=== PATIENT | male | born 1950 | race Caucasian/White ===

== ENCOUNTER 2016-12-18 11:26 | Emergency (ER) | payer MEDICARE ==
[2016-12-18 11:45] VITALS: BP 165/91
--- NOTE | 2016-12-18 12:12 | UC ---
Bite Injury/Animal HPI - HPI Summary HPI Summary: Trying to break up dog fight - History of Current Complaint Chief Complaint: UCBiteInjury Stated Complaint: DOG BITE Time Seen by Provider: 12/18/16 11:51 - Allergies/Home Medications Allergies/Adverse Reactions: Allergies Allergy/AdvReac Type Severity Reaction Status Date / Time No Known Allergies Allergy Verified 03/28/15 13:34 Home Medications: Home Medications Amlodipine Besylate [Norvasc 2.5 mg tab] 2.5 mg PO DAILY 12/18/16 [History Confirmed 12/18/16] Aspirin [Davis Aspirin 325 MG] 325 mg PO 12/18/16 [History] Folic Acid 800 mcg PO 12/18/16 [History] Levothyroxine TAB* [Synthroid TAB*] 62.5 mcg PO 0800 12/18/16 [History Confirmed 12/18/16] Magnesium Oxide 800 mg PO 12/18/16 [History] Metoprolol Tartrate [Lopressor] 50 mg PO 12/18/16 [History] Omeprazole 40 mg PO 12/18/16 [History] PMH/Surg Hx/FS Hx/Imm Hx Endocrine History Of: Reports: Thyroid Disease Cardiovascular History Of: Reports: Hypertension Respiratory History Of: Reports: COPD Neurological History Of: Reports: Seizures Psychological History Of: Reports: Anxiety, Depression - Surgical History Surgical History: Yes Surgery Procedure, Year, and Place: bladder surgery - Family History Known Family History: Positive: Hypertension, Diabetes - mother, grandmother - Social History Occupation: Retired Lives: Alone Alcohol Use: Daily Alcohol Amount: 4-6 a day Substance Use Type: Prescribed Substance Use Comment - Amount & Last Used: 03/28/15 Smoking Status (MU): Heavy Every Day Tobacco Smoker Type: Cigarettes Cessation Counseling: Patient Advised to Stop - Immunization History Most Recent Influenza Vaccination: never Most Recent Tetanus Shot: unk Most Recent Pneumonia Vaccination: unk Review of Systems Constitutional: Negative Skin: Other - redness, swelling, PWs L hand Eyes: Negative ENT: Negative Respiratory: Negative Cardiovascular: Negative Gastrointestinal: Negative Genitourinary: Negative Motor: Negative Neurovascular: Negative Musculoskeletal: Negative Neurological: Negative Psychological: Negative All Other Systems Reviewed And Are Negative: Yes Physical Exam Triage Information Reviewed: Yes Appearance: Pain Distress - with L hand use, Other: - poor grooming, faint smell of alcohol Vital Signs: Initial Vital Signs Temp 98.4 F 12/18/16 11:39 Pulse 94 12/18/16 11:39 Resp 18 12/18/16 11:39 BP 165/91 12/18/16 11:39 Pulse Ox 99 12/18/16 11:39 Vital Signs Reviewed: Yes Eye Exam: Normal Eyes: Positive: Conjunctiva Clear ENT Exam: Normal ENT: Positive: Normal ENT inspection, Hearing grossly normal, Pharynx normal, TMs normal Neck exam: Normal Neck: Positive: Supple, Nontender Respiratory Exam: Normal Respiratory: Positive: Chest non-tender, Lungs clear, Normal breath sounds Cardiovascular Exam: Normal Cardiovascular: Positive: RRR Musculoskeletal: Positive: 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 No tendon abnormalities noted on limited L hand exam. Neurological: Positive: Alert Psychological Exam: Normal Skin Exam: Other - Marked swelling and redness to back of L hand with lymphangitic streaking up to elbow. Multiple scabbed lacerations and PWs to hand , 2nd, 3rd, and 5th fingers. No wounds to volar side of hand. Bite Injury Course/Dx - Differential Dx/Diagnosis Provider Diagnoses: L hand infection. L hand dog bites - Physician Notifications Discussed Patient Care With: Dr. Grant Time Discussed With Above Provider: 12:09 Instructed by Provider To: MD Will See In ED Discharge - Discharge Plan Condition: Stable Disposition: AGAINST MEDICAL ADVICE
== END 2016-12-18 12:18 | disposition left against medical advice (07) ==
LOC: UCEAST 11:26
DX: S61.452A Open bite of left hand, initial encounter (principal); W54.0XXA Bitten by dog, initial encounter; F17.210 Nicotine dependence, cigarettes, uncomplicated; E07.9 Disorder of thyroid, unspecified; I10 Essential (primary) hypertension; J44.9 Chronic obstructive pulmonary disease, unspecified; R56.9 Unspecified convulsions; F41.9 Anxiety disorder, unspecified; F32.9 Major depressive disorder, single episode, unspecified; Z79.82 Long term (current) use of aspirin
CPT/HCPCS: 99212; G0463

== ENCOUNTER 2017-08-15 06:45 | Day surgery (SDC) | payer MEDICARE ==
[~2017-08-15 06:45] MED LIST: Acetaminophen TAB* 325 MG PO PRN; Buffered Lidocaine 0.9% SYRIN* 5 ML/SYR SYRINGE INTRADERM ONE
[2017-08-15] MEDS ORDERED: Midazolam* 1 MG/ML 2 ML VIAL (2 MG) ONE (07:07)
--- NOTE | 2017-08-15 09:05 | OP ---
DATE OF OPERATION: 08/15/17 MERGED WITH [facility] DATE OF : 46 SURGEON: Andrea Finley M.D. PREOPERATIVE DIAGNOSIS: Cataract right eye. POSTOPERATIVE DIAGNOSIS: Cataract right eye. OPERATIVE PROCEDURE: Extracapsular cataract extraction with intraocular lens implant right eye. DESCRIPTION OF PROCEDURE: The patient was brought to the operating room after being given 1/2% Alcaine with epinephrine drops in the preoperative area. The eye was prepped and draped in the usual sterile fashion. Sterile drape and eyelid speculum were placed. Again, topical 1/2% Alcaine with epinephrine was given. A paracentesis incision was made at the 9 o'clock position with the No.75 blade. Clear cornea incision 2.2 x 2.2-mm was created at the 12 o'clock position starting at the anterior limbus using the 2.2-mm keratome. The anterior chamber was irrigated with 0.4 mL of 1% non-preservative intracameral lidocaine and filled with DisCoVisc. A capsulorrhexis was completed using the cystotome and the Utrata forceps. Hydrodissection was performed with balanced salt solution. The lens nucleus was removed with the Phacoemulsification handpiece without incident. Cortex was removed with the irrigation-aspiration handpiece. The capsular bag was re-inflated using DisCoVisc and an SN60WF 23.5 implant was inserted with the shooter. The irrigation-aspiration handpiece was used to remove all residual DisCoVisc. The eye was refilled with balanced salt solution and the wound checked and found to be watertight. Topical Maxitrol drops were given. [id number]/[facility] #: [id number] [facility]
[2017-08-15 09:09] VITALS: BP 111/62
== END 2017-08-15 09:05 | disposition home or self-care (01) ==
LOC: OREAST 06:45
PROVIDERS: ATTEND Specialist
DX: H25.11 Age-related nuclear cataract, right eye (principal); J44.9 Chronic obstructive pulmonary disease, unspecified; I10 Essential (primary) hypertension; E03.9 Hypothyroidism, unspecified; F10.20 Alcohol dependence, uncomplicated; F17.210 Nicotine dependence, cigarettes, uncomplicated
CPT/HCPCS: J2250; V2632

== ENCOUNTER 2017-08-22 06:31 | Day surgery (SDC) | payer MEDICARE ==
[2017-08-22] MEDS ORDERED: Midazolam* 1 MG/ML 2 ML VIAL (2 MG) ONE ×2 (07:50→08:05)
[2017-08-22 08:36] VITALS: BP 129/71
--- NOTE | 2017-08-22 10:04 | OP ---
OPERATIVE REPORT: DATE OF OPERATION: 08/22/17 DATE OF : 46. SURGEON: Andrea Finley M.D. PREOPERATIVE DIAGNOSIS: Cataract, left eye. POSTOPERATIVE DIAGNOSIS: Cataract, left eye. OPERATIVE PROCEDURE: Extracapsular cataract extraction with intraocular lens implant left eye. PROCEDURE: The patient was brought to the operating room after being given 1/2 % Alcaine with epinephrine drops in the preoperative area. The eye was prepped and draped in the usual sterile fashion. Sterile drape and eyelid speculum were placed. Again, topical 1/2% Alcaine with epinephrine was given. A paracentesis incision was made at the 3 o'clock position with the No.75 blade. Clear cornea incision 2.2 x 2.2-mm was created at the 6 o'clock position starting at the anterior limbus using the 2.2-mm keratome. The anterior chamber was irrigated with 0.4 mL of 1% non-preservative intracameral lidocaine and filled with DisCoVisc. A capsulorrhexis was completed using the cystotome and the Utrata forceps. Hydrodissection was performed with balanced salt solution. The lens nucleus was removed with the Phacoemulsification handpiece without incident. Cortex was removed with the irrigation-aspiration handpiece. The capsular bag was re-inflated using DisCoVisc and an [id number] 24 implant was inserted with the shooter. The pupil was only about 4 mm, so a Malyugin ring was used to dilate the pupil prior to capsulorrhexis, removed after insertion of the lens. Indication for complex cataract surgery, pupil abnormalities requiring pupil dilation device. The irrigation-aspiration handpiece was used to remove all residual DisCoVisc. The eye was refilled with balanced salt solution and the wound checked and found to be watertight. Topical Maxitrol drops were given. The pupil was very small so a Malugyin ring was placed prior to capsulorrhexis to dilate the pupil and removed after insertion of the IOL. Indication for complex cataract surgery Iris abnormalities requiring pupil dilation device [id number]/[facility] #: [id number] MTDD
[2017-08-22] MEDS ORDERED: Ketorolac 0.5% OPHTH (NF) 0.5 % 5 ML BTL ONE (10:59)
[2017-08-22] MEDS ORDERED: Phenylephrine 2.5% OPTH.SOL* 2 ML BTL ONE (10:59)
[2017-08-22] MEDS ORDERED: Cyclopentolate 1% OPTH.SOL* 2 ML BTL ONE (10:59)
[2017-08-22] MEDS ORDERED: acetaZOLAMIDE TAB* 250 MG ONE (10:59)
[2017-08-22] MEDS ORDERED: Neomycin/Polymy/Dex OPTH.SUSP* MAXITROL 0.1% 5 ML ONE (10:59)
[2017-08-22] MEDS ORDERED: Proparacaine 0.5% OPHTH.SOL* 15 ML BTL ONE (10:59)
[2017-08-22] MEDS ORDERED: Lidocaine 2% EPI 1:200000 MPF* 20 ML VIAL ONE (10:59)
[2017-08-22] MEDS ORDERED: Povidone Iodine 5% OPTH* 30 ML BTL ONE (10:59)
[2017-08-22] MEDS ORDERED: Lidocaine 1% MPF* 2 ML VIAL ONE (10:59)
== END 2017-08-22 08:36 | disposition home or self-care (01) ==
LOC: OREAST 06:31
PROVIDERS: ATTEND Specialist
DX: H25.12 Age-related nuclear cataract, left eye (principal); H21.562 Pupillary abnormality, left eye; J44.9 Chronic obstructive pulmonary disease, unspecified; I10 Essential (primary) hypertension; E03.9 Hypothyroidism, unspecified; F17.210 Nicotine dependence, cigarettes, uncomplicated; F10.21 Alcohol dependence, in remission
CPT/HCPCS: A9270-GY; J2250; V2632

== ENCOUNTER 2019-03-21 14:21 | Inpatient (IN) | payer MEDICARE ==
[~2019-03-21 14:21] MED LIST changes: -Acetaminophen TAB* 325 MG PO PRN; -Buffered Lidocaine 0.9% SYRIN* 5 ML/SYR SYRINGE INTRADERM ONE; +Levothyroxine INJ* 100 MCG/5 ML VIAL IV ONE
--- NOTE | 2019-03-21 14:25 | ED ---
Neurological HPI - HPI Summary HPI Summary: This pt is a 68 y/o male presenting to [facility] via EMS after being found unresponsive today. EMS reports bystander found the patient unresponsive lying outside in the sun next to his car outside bar. Per EMS pt was found unresponsive after he left a local bar and barrel tester and drainer unsure when patient left. EMS states upon their arrival patient was not responsive with agonal breathing. EMS got the patient out of the heat and did a 12 lead EKG. Per EMS, pt's heart rate was initially 40 bpm and after EMS administered 0.5 atropine the heart rate went up to 60 bpm. Per EMS, blood glucose of 187. EMS states pt has a right clenched hand and flaccid left arm and leg. Enroute, after BVM - pt started saying unintelligble words. report pt had eyes deviated to right briefly , Patient presents with head injury. Concern for 3rd HB and STEMI in field - called prehospital STEMI Patient's initial blood pressure was 209/100, per EMS. A second blood pressure of 180s/90s was registered per EMS. Upon arriving to the ED EMS notes pt's blood pressure was 230/160. Last well known is NOT known. Per EMS pt is a heavy drinker and smoker per bystander Patient's medications reviewed this visit. - History of Current Complaint Stated Complaint: STEMI PER EMS Hx Obtained From: EMS Hx From Patient Unobtainable Due To: Extremis Onset/Duration: Still Present Timing: Constant Current Severity: Moderate Neurological Deficit Location: RUE, LUE Aggravating: Unknown Alleviating: Unknown Associated Signs and Symptoms: Positive: Loss of Consciousness, Trauma: Recent - Additional Pertinent History Primary Care Physician: SAMREEN - Allergy/Home Medications Allergies/Adverse Reactions: Allergies Allergy/AdvReac Type Severity Reaction Status Date / Time No Known Allergies Allergy Verified 08/22/17 07:01 Home Medications: Home Medications Aspirin EC TAB* [Ecotrin EC TAB*] 325 mg PO DAILY 03/21/19 [History Confirmed ] Levothyroxine TAB* [Synthroid TAB*] 62.5 mcg PO DAILY 03/21/19 [History Confirmed 03/21/19] Magnesium Oxide TAB* [MagOx 400 TAB*] 400 mg PO BID 03/21/19 [History Confirmed 03/21/19] Metoprolol Succinate XL TAB* [Toprol XL TAB*] 50 mg PO DAILY 03/21/19 [History Confirmed 03/21/19] amLODIPine TAB* [Norvasc 5 mg TAB*] 10 mg PO DAILY 03/21/19 [History Confirmed 03/21/19] PMH/Surg Hx/FS Hx/Imm Hx Previously Healthy: No - limited - level 5 caveat Endocrine/Hematology History: Reports: Hx Thyroid Disease Cardiovascular History: Reports: Hx Hypertension Respiratory History: Reports: Hx Chronic Obstructive Pulmonary Disease (COPD), Other Respiratory Problems/Disorders - COPD GI History: Reports: Hx Gastroesophageal Reflux Disease - ON MEDICATION, Hx Hiatal Hernia, Hx Ulcer History: Reports: Other Problems/Disorders - bladder ca Musculoskeletal History: Reports: Hx Arthritis, Hx Back Problems, Hx Scoliosis Sensory History: Reports: Hx Cataracts - PRESENTLY, Hx Contacts or Glasses - GLASSES Denies: Hx Hearing Aid Opthamlomology History: Reports: Hx Cataracts - PRESENTLY, Hx Contacts or Glasses - GLASSES Neurological History: Reports: Hx Seizures Psychiatric History: Reports: Hx Anxiety, Hx Depression - Cancer History Cancer Type, Location and Year: bladder - Surgical History Surgery Procedure, Year, and Place: bladder surgery Hx Anesthesia Reactions: No - Immunization History Date of Tetanus Vaccine: unknown Date of Influenza Vaccine: no - Family History Known Family History: Positive: Hypertension, Diabetes - mother, grandmother, Non-Contributory - Social History Lives: Alone Alcohol Use: Daily Alcohol Amount: 4-6 a day Substance Use Type: Reports: None, Prescribed Substance Use Comment - Amount & Last Used: 03/28/15 Smoking Status (MU): Heavy Every Day Tobacco Smoker Type: Cigarettes Amount Used/How Often: 1 PPD Have You Smoked in the Last Year: Yes Review of Systems - ROS Summary Review of Systems Summary: ROS IS LIMITED DUE TO LEVEL 5 CAVEAT - extremis ENT: Other - POSITIVE: head trauma Neurological: Other - POSITIVE: unresponsive, right hand clenched, left hand All Other Systems Reviewed And Are Negative: No Physical Exam - Summary Physical Exam Summary: Vital Signs Reviewed: Yes Pt yelling unintelligble words, cachexia Eyes: Conjunctiva Clear, SHAHRIAR. unable to test ROM- pt noted to look all around with deviation ENT: Hearing grossly normal mm very dry Neck: Positive: Supple - c collar placed in ED Respiratory: Positive: No respiratory distress, No accessory muscle use decreased BS bases Cardiovascular: RRR nl s1, s2 no m/r CBT <2 sec abd soft + BS nd no guarding, no distension Musculoskeletal Exam: Pt with purposeful movement Right upper and lower extremity Pt initally flaccid left upper and lower ext, duringinitial ED eval, pt developed purposeful movement of LLE. Pt continued with flaccid LUE Neurological: Positive: Alert, GCS; 4/4/4 Psychological: Positive: Normal Response To Family Skin: Positive: no rash, abraison frontal area and parietal left left elbow abraison Triage Information Reviewed: Yes Procedures - Intubation Time of Intubation: 14:32 - capnography noted Intubation Method: orotracheal Tube Size (cm): 7.0 Medications: Succinylcholine - 80 mg of Succinylcholine and 20 mg of Etomidate Intubation Complications: no complications Diagnostics - Laboratory Result Diagrams: 03/21/19 14:30 03/21/19 14:30 Lab Statement: Any lab studies that have been ordered have been reviewed, and results considered in the medical decision making process. - CT Brain CT CT Interpretation Completed By: Radiologist Summary of CT Findings: IMPRESSION: No evidence of intracranial or hemorrhage. No changes noted since previous exam of March 28, 2015. Dr. Hui has reviewed this report. Cervical spine CT CT Interpretation Completed By: Radiologist Summary of CT Findings: IMPRESSION: 1. There are subluxation at multiple levels likely secondary to degenerative disc changes. No fracture is seen. 2. Multilevel degenerative disc disease and facet osteoarthritis. 3. Slightly limited exam. Dr. Hiu has reviewed this report. Head CTA CT Interpretation Completed By: Radiologist Summary of CT Findings: IMPRESSION: No acute occlusive disease, significant stenosis or aneurysm in the head. Dr. Hui has reviewed this report. Neck CTA CT Interpretation Completed By: Radiologist Summary of CT Findings: IMPRESSION: No acute occlusive disease or significant stenosis. Dr. Hui has reviewed this report. - EKG 14:52 Cardiac Rate: NL EKG Rhythm: 3rd Degree HB Summary of EKG Findings: 3rd degree heart block. Inverted T waves in V1-V4. Biphasic T wave in V5. NIH Scale - NIH Scale Level of Consciousness: Responds to Minor Stimulation Ask Patient the Month and His/Her Age: Neither Correct/Aphasic Ask Pt to Open/Close Eyes and Bulk System Operator/Release Non-Paretic Hand: Neither Correctly Best Gaze (Only Horizontal Eye Movement): Normal Facial Paresis-Pt to Smile & Close Eyes or Grimace Symmetry: Normal/Symmetrical Motor Function - Left Leg: Effort Against [place] Re-Evaluation - Re-Evaluation First Eval Re-Evaluation Time: 14:26 Comment: Dr. Wilson, neurologist, at bedside. Second Eval Re-Evaluation Time: 15:12 Comment: Spoke with the [employer] and they report patient was on his way to the bar. Brain CT is negative. Will give pt a tetanus shot. , Keppra, banana bag - will get CTA head and neck. EKG with 3rd block - conduting HR 30s BP 120s - will consult cards, pacer pads on, atropine at bedside. Will place temperature arrieta. Patient is on versed drip with blood pressure of 120s systolic. Third Eval Re-Evaluation Time: 15:32 Comment: Pt going to CT for CTA of head and neck now. carda at bedside- following CT will go to cath for a temporary pacemaker and then will come back for an echo. If patient has a LVO then we will fly patient out. If patient does not have a LVO we will admit patient here. d/w Dr. Mancini - auto washer- agreement with plan Course/Dx - Course Course Of Treatment: Initially STEMI alert called at 1414, ETA [address] Hui immediately at bedside upon patient arrival via EMS. Dr. Patel immediately at bedside. reviewed of EKG- no stemi, 3rd block - pt noted to be flaccid on left initially - Code Linn called at 14:23. Pt placed in C collar - pt yelling unintellgble words, attempting to sit up - intubate for air protection, patient safety - Patient was intubated with 20 mg etomidate and 80 mg succinylcholine at 14:32. Brain CT ordered at 14:31. Patient to CT at 14:42. Patient returned from CT at 14:52. [14:53] Dr. Arias, radiologist, reports brain CT is negative for an acute infarct. [15:00] Discussed with Dr. Garcia who will come see the pt in the ED for 3rd degree HB. [15:12] Dr. Wilson, neurologist, recommends neck and head CTA, banana bag, and 1 gram of Keppra. - pt was heading into bar - concern for alcohol withdrawal seizure - - Diagnoses Provider Diagnoses: Mental status change resolved, Scalp abrasion, Heart block AV third degree, Hypomagnesemia During the Visit The Following Alert/Code Occurred: STEMI, Code Linn - at 14:23 - Physician Notifications Discussed Care Of Patient With: Paola Garcia Time Discussed With Above Provider: 15:00 Instructed by Provider To: Admit As Inpatient - Discussed with Dr. Garcia, towel sorter, who will come see the patient for 3rd degree block. [15:12] Dr. Wilson, neurologist, recommends neck and head CTA, banana bag, and 1 gram of Keppra. [16:05] Spoke with Dr. Chase, radiologist, who reports no LVO. [16:06 ] Discussed with Dr. Mancini, auto washer, who accepted the pt to the ICU. [16:10] Spoke with Dr. Wilson, neurologist, and he is ok with the plan. - Critical Care Time Critical Care Time: 30-74 min - 45- 60 minutes Discharge - Sign-Out/Discharge Documenting (check all that apply): Patient Departure - Admit to ICU Patient Received Moderate/Deep Sedation with Procedure: No - Discharge Plan Condition: Stable Disposition: ADMITTED TO [facility] - Billing Disposition and Condition Condition: STABLE Disposition: Admitted to [facility] - Attestation Statements Document Initiated by Laura: Yes Documenting Scribe: Geni Nair Provider For Whom Scribe is Documenting (Include Credential): Isha Hui MD Scribe Attestation: Geni Mayer, scribed for Isha Hui MD on 03/22/19 at 0434. Scribe Documentation Reviewed: Yes Provider Attestation: The documentation as recorded by the Geni braga accurately reflects the service I personally performed and the decisions made by me, Isha Hui MD Status of Scribe Document: Viewed
[2019-03-21] MEDS ORDERED: Succinylcholine* 20 MG/ML 10 ML VIAL ONE (14:32)
[2019-03-21] MEDS ORDERED: Etomidate* 2 MG/ML 20 ML VIAL (40 MG) ONE (14:34)
[2019-03-21 14:50] LABS: ABS Monocytes 0.7 10^3/ul (0-0.8); ABS Neutrophils 5.2 10^3/ul (1.5-7.7); Eosinophil % 0.4 %; Hematocrit 37 % (42-52); Hemoglobin 12.9 g/dL (14.0-18.0); Lymphocyte % 13.9 %; Mean Corpuscular HGB Conc 35 g/dL (31-36); Mean Corpuscular Hemoglobin 36 pg (27-31); Mean Corpuscular Volume 104 fL (80-94); Mean Platelet Volume 7.9 fL (7.4-10.4); Nucleated Red Blood Cells % 0.1; Platelet Count 248 10^3/uL (150-450); Red Cell Distribution Width 14 % (10-15); White Blood Count 6.9 10^3/uL (3.5-10.8)
[2019-03-21] MEDS ORDERED: Propofol* 100 ML IV SCH (15:00)
[2019-03-21] MEDS ORDERED: levETIRAcetam 1000MG IVPREMIX* 1,000 MG/100 ML BAG IVPB ONE (15:02)
[2019-03-21 15:05] LABS: Activated Partial Thrombo Time 29.7 seconds (26.0-38.0); INR 1.22 (0.82-1.09)
[2019-03-21] MEDS ORDERED: Thiamine IV* 100 MG, Folic Acid IV* 1 MG, Multiple Vitamin IV ADULT* 10 ML in NS 0.9% 1... IV ONE (15:05)
[2019-03-21 15:10] LABS: ALT 9 U/L (7-52); AST 16 U/L (13-39); Albumin 3.2 g/dL (3.2-5.2); Albumin/Globulin Ratio 1.2 (1-3); Alkaline Phosphatase 61 U/L (34-104); Anion Gap 17 mmol/L (2-11); BUN/Creatinine Ratio 19.2 (8-20); Blood Urea Nitrogen 14 mg/dL (6-24); CO2 Carbon Dioxide 16 mmol/L (22-32); Calcium 7.9 mg/dL (8.6-10.3); Chloride 90 mmol/L (101-111); Cholesterol 109 mg/dL; EGFR African American 128.5 (>60); EGFR Non-African American 106.2 (>60); Globulin 2.6 g/dL (2-4); Glucose 152 mg/dL (70-100); HDL Cholesterol 52.5 mg/dL; LDL Cholesterol 39 mg/dL; Potassium 4.2 mmol/L (3.5-5.0); Sodium 123 mmol/L (135-145); Total Protein 5.8 g/dL (6.4-8.9); Triglycerides 88 mg/dL
[2019-03-21] MEDS ORDERED: Tetan/Diph/Pertus SYR(Tdap)* 0.5 ML SYR(BOOSTRIX) use SYR IM ONE (15:11)
[2019-03-21 15:12] LABS: Troponin I 0.07 ng/mL (<0.04)
[2019-03-21 15:28] LABS: Magnesium 1.7 mg/dL (1.9-2.7)
[2019-03-21] MEDS ORDERED: Iohexol 350* (CONTRAST) 500 ML MDV IV ONE (15:32)
[2019-03-21] MEDS ORDERED: Magnesium Sulfate 2 GM IV* 2 GM/50 ML BAG IVPB ONE ×2 (15:32→18:00)
[2019-03-21] MEDS ORDERED: Lidocaine 1% INJ* 10 MG/ML 30 ML SDV ONE (15:40)
[2019-03-21 15:42] LABS: Urine Appearance Cloudy; Urine Bacteria Absent (Absent); Urine Bilirubin Negative (Negative); Urine Blood 1+ (Negative); Urine Color Yellow; Urine Glucose Negative (Negative); Urine Ketones Negative (Negative); Urine Nitrite Negative (Negative); Urine Protein 1+(30 mg/dL) (Negative); Urine Red Blood Cell Trace(0-2/hpf) (Absent); Urine Urobilinogen Negative (Negative); Urine White Blood Cell Trace(0-5/hpf) (Absent)
[2019-03-21 15:50] LABS: Alcohol 10 mg/dL (<10); Creatine Kinase 85 U/L (10-223)
[2019-03-21] MEDS ORDERED: Midazolam IV for DRIP* 100 MG in NS 0.9% 100 ML* 80 ML IV SCH (16:00)
--- NOTE | 2019-03-21 16:13 | CONS ---
CONSULTATION REPORT: ADDENDUM: We loaded him with Keppra for the possibility of seizures. His initial blood gas was 7.25, pCO2 of 46, pO2 of 190, intubated. His CBC had an MCV of 104, hematocrit of 37. He is getting banana bag. White count 6.9. Electrolytes had a sodium of 123, bicarb of 16, BUN and creatinine were normal, and so we are sending him for a CTA. He is going to have his bradycardia treated by the clinical tech. If he has a large vessel occlusion, he will be sent to an appropriate facility. If he does not on CTA, he will be admitted for further evaluation and care and Dr. Dillon will be on beginning this evening. Thank you for sharing his case. [id number]/[facility] #: [id number] NAMITA
[2019-03-21] MEDS ORDERED: Midazolam* 1 MG/ML 5 ML VIAL (5 MG) ONE (16:41)
[2019-03-21] MEDS ORDERED: Propofol* 100 ML ONE (17:43)
--- NOTE | 2019-03-21 17:51 | HP ---
H&P (Free Text) History and Physical: History and Physical -- Critical Care Limitations in history/physical: intubated HPI: 68y M w/pmhx of COPD, HTN, Alcoholism, hypothyroidism; patient was brought in by EMS after being found unresponsive in front of a bar. Unclear what happened but he was found agonal breathing, unresponsive, bradycardic, given atropine and bagged with BMV, BG 187. He started to move more enroute to hospital. Unclear history if he was in bar or drinking, unwitnessed but later history told he was not in bar but going to. In ER, he was not moving the left arm even with EMS. BP 209/100 by EMS, then 180s. in ER, EKG demonstrated sinus rhythm with complete heart block, HR 30-40s, diffuse Twave inversions noted. STEMI code called but deemed not likely a STEMI. Given neuro deficit a stroke code called, CT brain without acute process, CTA head without acute fractures. He was taken to label drier for temporary pacing wire given unknown etiology of unresponsiveness and now with new heart block. He is currently in ICU, intubated, sedated with versed infusion. IVF infusion started. CXR pending. Noted to have left frontal bruise. Currently pacing at 60bpm via Right fem TVP. 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109 kg Output: Arrieta 150 O2/Vent: AC 16/500/+5/50% Infusions: banana bag 100cc/hr, versed 4mg/hr Current Medications: Thiamine HCl 100 mg/ Folic Acid 1 mg/ Multivitamins 10 ml / Sodium Chloride 1, 011.2 mls @ 250 mls/hr IV ED ONCE ONE Stop: 03/21/19 19:07 Last Admin: 03/21/19 17:02 Dose: 100 mls/hr Midazolam HCl 100 mg/ Sodium (Chloride) 100 mls @ 2 mls/hr IV Q24H [facility]; Protocol Last Admin: 03/21/19 15:58 Dose: 2 mls/hr Physical Exam: Constitutional: intubated, sedated, no distress, no diaphoresis Head: normocephalic, left frontal bruise+ Eyes: no pallor, no icterus ENT: moist mucous membranes Neck: soft, supple, no jvd CVS: was rafi, now normal rate, regular, no murmur Resp: bilateral air entry, no RRW, no acc muscle use Abdomen/GI: soft, nontender, nondistended, BS+ Ext/Msk: warm, pulses+, no edema Skin: intact, warm; DRY++ Neuro: sedated, pupils reactive, some spontaneous movment of right lower ext, unable to assess orientation, limited exam Labs: Laboratory Results - last 24 hr 03/21/19 03/21/19 03/21/19 10:20 14:30 14:30 WBC 6.9 RBC 3.60 L Hgb 12.9 L Hct 37 L MCV 104 H MCH 36 H MCHC 35 RDW 14 Plt Count 248 MPV 7.9 Neut % (Auto) 75.2 Lymph % (Auto) 13.9 Glascock % (Auto) 10.0 Eos % (Auto) 0.4 Baso % (Auto) 0.5 Absolute Neuts (auto) 5.2 Absolute Lymphs (auto) 1.0 Absolute Monos (auto) 0.7 Absolute Eos (auto) 0.0 Absolute Basos (auto) 0.0 Absolute Nucleated RBC 0.0 Nucleated RBC % 0.1 INR (Anticoag Therapy) 1.22 H APTT 29.7 Patient Temperature ABG pH ABG pH (Temp Correct) ABG pCO2 ABG pCO2 (Temp Corrct ABG pO2 ABG pO2 (Temp Correct ABG HCO3 ABG O2 Saturation ABG Base Excess Respiration Rate O2 Delivery Device Ventilator Type Vent Mode FiO2 Inspiratory Time PEEP Pressure Support Pressure Control EPAP IPAP BiPAP Sodium Potassium Chloride Carbon Dioxide Anion Gap BUN Creatinine Est GFR ( Amer) Est GFR (Non-Af Amer) BUN/Creatinine Ratio Glucose Lactic Acid Calcium Magnesium Total Bilirubin AST ALT Alkaline Phosphatase Total Creatine Kinase Troponin I Total Protein Albumin Globulin Albumin/Globulin Ratio Triglycerides Cholesterol LDL Cholesterol HDL Cholesterol Urine Color Yellow Urine Appearance Cloudy Urine pH 6.0 Ur Specific Chavies 1.010 Urine Protein 1+(30 mg/dl) A Urine Ketones Negative Urine Blood 1+ A Urine Nitrate Negative Urine Bilirubin Negative Urine Urobilinogen Negative Ur Leukocyte Esterase Negative Urine WBC (Auto) Trace(0-5/hpf) Urine RBC (Auto) Trace(0-2/hpf) Urine Bacteria Absent Hyaline Casts Present A Urine Glucose Negative Serum Alcohol 03/21/19 03/21/19 03/21/19 14:30 14:30 15:20 WBC RBC Hgb Hct MCV MCH MCHC RDW Plt Count MPV Neut % (Auto) Lymph % (Auto) Glascock % (Auto) Eos % (Auto) Baso % (Auto) Absolute Neuts (auto) Absolute Lymphs (auto) Absolute Monos (auto) Absolute Eos (auto) Absolute Basos (auto) Absolute Nucleated RBC Nucleated RBC % INR (Anticoag Therapy) APTT Patient Temperature Not Reportable ABG pH 7.25 L ABG pH (Temp Correct) Not Reportable ABG pCO2 46 H ABG pCO2 (Temp Corrct Not Reportable ABG pO2 190 H ABG pO2 (Temp Correct Not Reportable ABG HCO3 19.4 ABG O2 Saturation 100.0 H ABG Base Excess -7.0 L Respiration Rate 14 O2 Delivery Device mech vent Ventilator Type 400 Vent Mode cmv FiO2 50 Inspiratory Time Not Reportable PEEP 5 Pressure Support Not Reportable Pressure Control Not Reportable EPAP Not Reportable IPAP Not Reportable BiPAP Not Reportable Sodium 123 L Potassium 4.2 Chloride 90 L Carbon Dioxide 16 L Anion Gap 17 H BUN 14 Creatinine 0.73 Est GFR ( Amer) 128.5 Est GFR (Non-Af Amer) 106.2 BUN/Creatinine Ratio 19.2 Glucose 152 H Lactic Acid 9.5 H* Calcium 7.9 L Magnesium 1.7 L Total Bilirubin 0.50 AST 16 ALT 9 Alkaline Phosphatase 61 Total Creatine Kinase 85 Troponin I 0.07 H* Total Protein 5.8 L Albumin 3.2 Globulin 2.6 Albumin/Globulin Ratio 1.2 Triglycerides 88 Cholesterol 109 LDL Cholesterol 39 HDL Cholesterol 52.5 Urine Color Urine Appearance Urine pH Ur Specific Chavies Urine Protein Urine Ketones Urine Blood Urine Nitrate Urine Bilirubin Urine Urobilinogen Ur Leukocyte Esterase Urine WBC (Auto) Urine RBC (Auto) Urine Bacteria Hyaline Casts Urine Glucose Serum Alcohol 10 Imaging: EKG 03/21 NSR with complete heart block, Junctional escape rhythm in 30-40s; 1st EKG with diffuse Twave inversions anterior but peaked in inferior leads CT brain 03/21 - no acute process CTA head 03/21 - no large vessel occlusion noted Cervical spine CT - degen disc disease wiht subluxations noted Assessment: 68y M w/pmhx of COPD, HTN, Alcoholism, hypothyroidism; patient was brought in by EMS after being found unresponsive in front of a bar. Unclear what happened but he was found agonal breathing, unresponsive, bradycardic, given atropine and bagged with BMV, BG 187. He started to move more enroute to hospital. Unclear history if he was in bar or drinking, unwitnessed but later history told he was not in bar but going to. In ER, he was not moving the left arm even with EMS. BP 209/100 by EMS, then 180s. in ER, EKG demonstrated sinus rhythm with complete heart block, HR 30-40s, diffuse Twave inversions noted. STEMI code called but deemed not likely a STEMI. Given neuro deficit a stroke code called, CT brain without acute process, CTA head without acute fractures. He was taken to label drier for temporary pacing wire given unknown etiology of unresponsiveness and now with new heart block. -Encephalopathy -Left frontal bruise/trauma -Acute hypercapneic and hypoxic respiratory failure -Complete Heart block wtih junctional escape -Shock, suspect cardiogenic from heart block -Metabolic acidosis/lactic acidosis -HYponatremia h/o alcohol abuse COPD hypothyroidism Plan: Neuro- -unclear etiology of encephalopathy, suspect possible hypoperfusion given new heart block? -CT brain and CTA neg for acute occlusion/cva/bleed -check ammonia level -check tsh -thiamine iv 250mg daily tomorrow; 100mg iv tonight in banana bag -alcohol 10; checku utox -on versed infusion; start propofol infusion -daily sedation vacation/neurochecks -Delirium prec; avoid BDZ CVS- -not hypotensive -s/p TVP right femoral vein for CHB; now pacing at 60 -will trend trop -TTE bedside appears normal LV function -IVF hydration, trend LA -hold antihypertensives/BB -cardiology following -Maintain MAP>65 Resp- -intubated 50% -CXR pending for infiltrate -Wean Fio2 to keep sat>92% -Bronchodilators PRN, Aspiration prec, Pulmonary Toilet -VAP bundle ID- afebrile. wbc normal. CXR pending -LA elevated -r/o aspiration; nontoxic appearing; dry -no infection suspected at this time; eval for abx need GI- -NPO -check ammonia level -GI prophylaxis - ppi Renal- -Cr okay; LA elevated likely from hypoperfusion -IVF hydration -strict I/O, replete to keep K>4, Mg>2 -arrieta as indicated Heme- hg stable, plt stable; no bleeding noted -DVT proph with SCD today Endo- Maintain BG<200, insulin protocol as needed -restart synthroid 62.5mcg daily po; check tsh Musculsk- pressure ulcer prophylaxis. Bedrest. Wounds- left frontal bruise; monitor for now Nutrition- NPO DVT prophylaxis: SCD GI prophylaxis: ppi Central Line: right fem TVP/sheath Arterial Line: no Arrieta Cathetor: yes Disposition: Admit to ICU; expected LOS>2 midnights; Patient requires Critical Care/ICU for complete heart block, respiratoyr failure req intubation Patient Clinical Status: guarded, critical Code Status: full code Total Critical Care time is 60 minutes, excluding procedures/teaching Arben Mancini MD Gas[employer] Truck [employer] (Electronically Signed)
--- NOTE | 2019-03-21 17:53 | CONS ---
ADDENDUM NOW INCLUDED ON THIS REPORT CONSULTATION REPORT: DATE OF CONSULT: 03/21/19 PATIENT OF: Golden Leach MD, and Isha Hui MD. HISTORY OF PRESENT ILLNESS: This is a 68-year-old man who had an event today. The details are not clear. He was found outside a bar on the ground and was brought to the hospital. I called the bar and without divulging his name, they were aware that a man was found, but apparently he had not been in the bar, but was going into the bar at the time that this had happened. He was found by a bystander unresponsive, lying in the sun next to his car, and the EMS said that he was unresponsive and had agonal breathing. The patient's heart rate was initially 40 beats per minute. He received atropine and his heart rate went to 60. His right hand was clenched initially, and he has a flaccid left arm and leg, and he had laceration on his left forearm and arm. Initial blood pressure was 209/100 with repeat blood pressure at 180s/90s. He is a known heavy drinker and smoker, and review of his records here show that he had an alcohol withdrawal seizure a few years ago. He was most recently here for cataract surgery. Apparently, he was on amlodipine and metoprolol at that visit. PAST SURGICAL HISTORY: He has had cataract surgery. MEDICATIONS: His home medications that we know of include: 1. Amlodipine 10 mg daily. 2. Prilosec 20 mg daily. 3. Synthroid 62.5 daily. 4. Aspirin 325 mg daily. 5. Metoprolol 50 mg daily. 6. Mag oxide 400 b.i.d. ALLERGIES: He has no known drug allergies. REVIEW OF SYSTEMS: Unobtainable at this time. I have tried calling the daughter's house and I left a message. He was in the heat when he was found. PHYSICAL EXAMINATION: It was found the temperature now is 100.1, pulse 52, respirations 12, blood pressure was 209/100. I saw him as he was being intubated. He was agitated with eyes open, but without a particular gaze preference at that point. He was not responsive to commands or interactive and did not speak, but was thrashing. He moved all extremities with power, except for his left arm which was flaccid. He initially did not move his left leg per history, but when I saw him he was moving with good power in all extremities, at least 4+/5. Reflexes were unable to be obtained because of lack of cooperation. Toes were equivocal to downgoing. He was unable to cooperate with any formal testing and he was promptly intubated and sedated and I did not have a chance given the time constraints to do a full NIH assessment. DIAGNOSTIC STUDIES/LAB DATA: Labs are not back yet. He has just been sent for a CT of head and C-spine, which to my eyes shows no evidence of significant FINANCE ADVISOR bleed. There appears to be some atrophy including cerebellar atrophy and some possible white matter disease. CT scan of his C-spine is pending. He is being ruled out for a STEMI. ASSESSMENT AND PLAN: This is not clear when this man's last known well was. We tried calling the place where he was found outside of he is single and I have tried to reach his daughter. He is not a TPA candidate because we do not know his last known well; it is not clear whether this was a stroke or not. He has had some head trauma as well and he has had global agitation. It is possible that this could have even been an alcohol withdrawal seizure with some trauma to his arm. He will need a CTA in the near future. He would be potentially a candidate for clot retrieval if he had a large-vessel occlusion depending on what his other acute medical issues are and once we get his renal status back. We can get a CTA of his head. I would coordinate it with the price lister and others just in case they need to give dye as well. Thank you for sharing his case. ADDENDUM: We loaded him with Mirza for the possibility of seizures. His initial blood gas was 7.25, pCO2 of 46, pO2 of 190, intubated. His CBC had an MCV of 104, hematocrit of 37. He is getting banana bag. White count 6.9. Electrolytes had a sodium of 123, bicarb of 16, BUN and creatinine were normal, and so we are sending him for a CTA. He is going to have his bradycardia treated by the price lister. If he has a large vessel occlusion, he will be sent to an appropriate facility. If he does not on CTA, he will be admitted for further evaluation and care and Dr. Dillon will be on beginning this evening. Thank you for sharing his case. [id number]/CPS #: [id number]- [id number]/CPS #: [id number] NAMITA
[2019-03-21] MEDS ORDERED: Chlorhexidine MOUTHWASH 0.12%* 15 ML UDC TOPICAL SCH (18:00)
--- NOTE | 2019-03-21 18:20 | ECHO ---
*[facility]* [place] [address] Fax #: [phone] Transthoracic Echocardiogram Patient: Anjum Chapman : 1950 Study Date: 03/21/2019 Age: 68 Gender: M HR: 40 bpm Height: 62 in /157.5 cm BSA: 1.51 m^2 Weight: 114.8 lb /52.2 kg BMI: 21 kg/m^2 *Civil Cad Tech: * Mihaela Soares [facility] *Referring Physician: * Isha Hui *Reading Physician: * Paola Garcia MD Indications: Abnormal EKG. History: Chronic obstructive pulmonary disease. Risk factors: Hypertension. Hiatal hernia, seizures. Conclusions Summary: 1. Left ventricle: The cavity size is mildly reduced. Wall thickness is moderately increased. Systolic function is normal. The estimated ejection fraction is 60-65%. Wall motion is normal; there are no regional wall motion abnormalities. There is no consistent Doppler evidence of clinically significant diastolic dysfunction. 2. Right ventricle: Systolic pressure cannot be accurately determined, but appears to be increased. 3. Ventricular septum: There is abnormal interventricular septal wall motion consistent with an RV pacemaker. 4. Left atrium: The atrium is severely dilated. 5. Mitral valve: The findings are consistent with mild stenosis. There is mild to moderate regurgitation. The peak E-wave velocity is 1.54 m/sec. The pressure half-time is 118 ms. The valve area by pressure half-time is 1.9 cm^2. 6. Aortic valve: The findings are consistent with moderate stenosis. Accurate evaluation of aortic stenosis severity is limited by TDS and poor windows to evaluate the aortic valve and to obtain accurate velocities across the aortic valve. There is trace to mild regurgitation. The peak systolic velocity is 2.6 m/sec. The mean systolic gradient is 14.0 mm Hg. The peak systolic gradient is 27.0 mm Hg. The valve area by the velocity-time integral method is 1.12 cm^2. The valve area by the peak velocity method is 1.12 cm^2. 7. Tricuspid valve: There is moderate regurgitation. 8. Pulmonic valve: There is trace to mild regurgitation. 9. C/t 03/29/2015, there is increase in mixed valvular disease severity. Study data: Transthoracic echocardiogram. Procedure: Transthoracic echocardiography was performed. Image quality was poor. The study was technically limited due to poor acoustic window availability and Patient on ventilator. Complete 2D, spectral Doppler, and color flow Doppler. Location: ICU Patient status: Inpatient. Patient room number: ICU-7. Rhythm: Paced rhythm. Findings Left ventricle: The cavity size is mildly reduced. Wall thickness is moderately increased. Systolic function is normal. The estimated ejection fraction is 60-65%. Wall motion is normal; there are no regional wall motion abnormalities. There is no consistent Doppler evidence of clinically significant diastolic dysfunction. Right ventricle: The cavity size is mildly dilated. Systolic function is normal. Systolic pressure cannot be accurately determined, but appears to be increased. Ventricular septum: There is abnormal interventricular septal wall motion consistent with an RV pacemaker. Left atrium: The atrium is severely dilated. Right atrium: The atrium is at the upper limits of normal in size. Mitral valve: The annulus is mildly calcified. The findings are consistent with mild stenosis. There is mild to moderate regurgitation. Aortic valve: The valve is trileaflet. The leaflets are moderately calcified. The findings are consistent with moderate stenosis. Accurate evaluation of aortic stenosis severity is limited by TDS and poor windows to evaluate the aortic valve and to obtain accurate velocities across the aortic valve. There is trace to mild regurgitation. Tricuspid valve: The leaflets are normal thickness. There is no evidence of stenosis. There is moderate regurgitation. Pulmonic valve: The leaflets are normal thickness. There is no evidence of stenosis. There is trace to mild regurgitation. Aorta: Aortic root: The aortic root is appears normal. Ascending aorta: The ascending aorta is mildly dilated. Aortic arch: The aortic arch is poorly visualized. Pericardium: There is no significant pericardial effusion. Pulmonary arteries: The main pulmonary artery is normal-sized. Systolic pressure can not be accurately estimated. Systemic veins: Well visualized. Unable to accurately measure inferior vena cava collapsability due to patient being on mechanical ventilation. Inferior vena cava: The vessel is dilated. Measurements Left ventricle Value Ref Right atrium continued Value Ref NAVEED, LAX (L) 3.6 cm 4.2 - 5.8 SI dim, ES, A4C 5.0 cm 3.4 - 5.3 ESD, LAX 2.7 cm 2.5 - 4.0 SI dim/bsa, ES, (H) 3.3 cm/m^2 1.8 - 3.0 FS, LAX 26 % 25 - 43 A4C PW, ED, LAX (H) 1.4 cm 0.6 - 1.0 FS 26 % 25 - 43 Aortic valve Value Ref PW, ED (H) 1.4 cm 0.6 - 1.0 Jin diam, ED 1.9 cm --------- E', lat jin, TDI (L) 5.3 cm/sec >=10.0 Peak v, S 2.6 m/sec - -------- E/e', lat jin, 29 VTI, S 50.3 cm ---- ----- TDI Mean grad, S 14.0 mm Hg --------- E', med jin, TDI (L) 4.7 cm/sec >=7.0 Peak grad, S 27.0 mm Hg - -------- E/e', med jin, 33 LVOT/AV, VTI 0.36 ---- ----- TDI ratio E', avg, TDI 5.0 cm/sec LEON, VTI 1.12 cm^2 ---- ----- E/e', avg, TDI (H) 31 <=14 LEON, Vmax 1.12 cm^2 - -------- LVOT Value Ref Mitral valve Value Ref Diam, S 2.00 cm Peak E 1.54 m/sec --------- Area 3.1 cm^2 Peak A 1.31 m/sec --------- Peak yeni, S 0.93 m/sec Decel time 345 ms --------- VTI, S 18.0 cm PHT 118 ms --------- Mean grad, S 2 mm Hg Mean grad, D 4.0 mm Hg --------- SV 57 ml Peak grad, D 9.0 mm Hg --------- SV/bsa 38 ml/m^2 Peak E/A ratio 1.2 --------- MVA, PHT 1.9 cm^2 --------- Ventricular septum Value Ref IVS, ED (H) 1.3 cm 0.6 - 1.0 Pulmonic valve Value Ref Peak v, S 1.52 m/sec --------- Right ventricle Value Ref Peak grad, S 9.0 mm Hg --------- NAVEED, LAX 3.0 cm NAVEED minor ax, (H) 4.6 cm 1.9 - 3.5 Tricuspid valve Value Ref A4C mid TR peak v (H) 3.2 m/sec <=2.8 Peak RV-RA grad, 41 mm Hg --------- Left atrium Value Ref S AP dim, ES 3.80 cm 3.00 - 4.00 Aortic root Value Ref ML dim, A4C 4.3 cm Root diam 3.6 cm <3.8 SI dim, A4C 5.6 cm Vol/bsa, ES, 1-p 33 ml/m^2 12 - 37 Ascending aorta Value Ref A4C AAo AP diam, S 4.0 cm --------- Vol/bsa, ES, A/L (H) 51 ml/m^2 16 - 34 Inferior vena cava Value Ref Right atrium Value Ref Diam 2.1 cm --------- SI dim, ES 5.0 cm 3.4 - 5.3 ML dim, ES, A4C 3.3 cm 2.6 - 4.4 Legend: (L) and (H) chay values outside specified reference range. Prepared and electronically signed by Paola Garcia MD 03/21/2019 18:19
[2019-03-21] MEDS: Propofol* 100 ML IV SCH (18:36)
[2019-03-21 19:32] LABS: Urine Benzodiazepine Screen Presumptive Positive (None Detect); Urine Opiates Screen None Detected (None Detect)
--- NOTE | 2019-03-21 19:58 | CONS ---
CC: Hospitalist Service; ER physician, Dr. Hui; Dr. Garcia CARDIOLOGY CONSULTATION REPORT: DATE OF CONSULT: 03/21/19 HISTORY OF PRESENT ILLNESS: I was asked by ER physician Dr. Hui to see this 68- year-old male isamar brizuela who presented to the emergency room via EMS after he was found unresponsive today. The patient apparently was outside in the sun next to his car, they found him to be unresponsive after he left a local bar. The patient had some difficulty in breathing and heart rate was initially in the 40s aft er they did an EKG and they give him 0.5 mg of atropine. The heart rate did go up to 60 as per the n otes. The patient is currently intubated, sedated. Medical history obtained from talking to Dr. Mitch guevara, Dr. Patel, and also the notes in the patient's chart. Blood glucose was reported to be 187 on the scene, had flaccid left arm, and head injury. His initial blood pressure was elevated at 209/10 0 per the EMS, second blood pressure was 180/90, and in the emergency room, the patient had a blood p ressure of 230/160. He was noticed to be a heavy drinker as well as a smoker. Initially, STEMI was called. The patient was evaluated for STEMI by Dr. Patel from Interventional Cardiology in the [facility] room, who believed that there is no STEMI. I was called because the EKG in the emergency room showed the patient to be in complete heart block, and based on his heart rate was in the 30s, 40s, an d his unresponsiveness, temporary transvenous pacemaker was further indicated. Please refer to Dr. Darnell beyer's note, separate report, as transvenous pacemaker was done by Dr. Patel in the cath-lab under fluoroscopy. Other medical history is apparently not obtainable at the present time as I indicated. The patient i s intubated and sedated. PAST MEDICAL HISTORY: Other medical history includes thyroid disease, hypertension, COPD, heavy smok er, heavy drinker, history of gastroesophageal reflux disease. There is also on the other history, h istory of cataract, arthritis, back problems, scoliosis was also reported. There is history also of bladder surgery according to the notes. MEDICATIONS: From the reviewing the notes, the patient's home medications include: 1. Aspirin 325 mg daily. 2. Levothyroxine 62.5 mcg daily. 3. Magnesium oxide 400 mg twice a day. 4. Metoprolol 50 mg daily. 5. Amlodipine 10 mg daily. FAMILY HISTORY: No family history of premature coronary artery disease. SOCIAL HISTORY: He does drink 4-6 drinks of alcohol daily and also heavily. EMERGENCY DEPARTMENT COURSE: The patient was intubated in the emergency room and he had multiple john paul luations in the emergency room including consultation by Dr. Wilson from Neurology and please refer to his full separate note. There was some possibilities of seizures as per the notes from Dr. Roland marley. The patient did in the emergency room have brain CT, cervical spine CT, and head CTA. His head C TA showed the patient to have no acute occlusive disease, significant stenosis or aneurysm in the hea d. No acute occlusive disease in his head CTA. His brain CTA was reported to have no evidence of in tracranial bleed. The patient is intubated, sedated. PHYSICAL EXAM: Current vitals: Blood pressure 164/82, pulse after the transvenous pacemaker is 61 b eats per minute, temperature initially 97.9. Head and Neck: Neck is supple. JVP is not elevated. Chest: Diminished air entry at the bases. Heart: Normal S1, S2. No added sounds. Abdomen: Benign . Positive bowel sounds. Extremities: No edema. 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 Please refer to full neurological evaluation and exam as per Dr. Wilson. DIAGNOSTIC STUDIES/LAB DATA: His EKG that was done in the emergency room showed him to be in complet e heart block. Heart rate 38. There is deep T-wave inversions, V1, V2, V3, V4 and possible right bu ndle-branch abnormality. His labs showed the following: White blood cells 6.9, hemoglobin 12.9, hematocrit 37, and platelets 248. Chemistry: Sodium 123, potassium 4.2, chloride 90, BUN 14, creatinine 0.73. Lactic acid 9.5, magnesium 1.7. LFTs normal. Troponin 0.07. Cholesterol 109, triglycerides 88, LDL 39, HDL 52.5. Transthoracic echocardiogram is in progress at the present time. IMPRESSION AND PLAN: The patient is a 68-year-old male patient who does have significant heavy alcoh ol drinking, tobacco consumption, and history of systemic arterial hypertension, on medications as an outpatient, was found unresponsive and brought to the emergency room by the EMS team. Initially, ST elevation myocardial infarction was called and then was evaluated by elementary ell teacher, Dr Dario Patel. Did not feel there is ST elevation myocardial infarction at the moment. Evaluated by Neuro logy, Dr. Wilson, for concerns for cerebrovascular accident. CTA of the head showed no acute occlusi ve disease. The patient was found to be in complete heart block with heart rates in the 30s and a tr ansvenous pacemaker wire was inserted as per Dr. Patel in the central lab technician, please refer to his full sep arate note about this procedure. Currently, the patient will be admitted to the intensive care unit, will be followed up as per the land developer regarding his intubation, sedation. Blood pressure manag ement to be continued and also protocol for alcohol withdrawal as per the land developer evaluation. Pa ignacio will be continued. Reevaluate in the next 48 hours to 72 hours after he is dynamically stabi lized, electrolytes corrected especially his magnesium and hopefully will be responsive if a permanen t pacemaker will be indicated and discussed with the patient. TIME SPENT: More than half of at least 65 plus minutes was spent on further evaluating this patient, discussing him with the all above mentioned doctors, making further decision making. Thank you very much for asking us to participate in the care of this patient. [id number]/[facility] #: [id number]
[2019-03-21] MEDS ORDERED: NS 0.9% 1000 ML/HR X 1 BAG (TOTAL 1000 ML) IV ONE (20:15)
[2019-03-21] MEDS: Thiamine IV* 250 MG in NS 0.9% 100 ML* 100 ML IV SCH (20:29)
[2019-03-21 20:57] LABS: Troponin I 0.08 ng/mL (<0.04)
[2019-03-21] MEDS: Chlorhexidine MOUTHWASH 0.12%* 15 ML UDC TOPICAL SCH (22:29)
[2019-03-21] MEDS ORDERED: LEVOTHYROXINE IV SCH (23:45)
[2019-03-21] MEDS ORDERED: D5W IV SCH (23:45)
[2019-03-22] MEDS ORDERED: Levothyroxine INJ* 100 MCG/5 ML VIAL IV ONE
[2019-03-22] MEDS: Hydrocortisone INJ* 100 MG VIAL IV SCH ×4 (00:58→23:55)
[2019-03-22 01:53] LABS: Troponin I 0.07 ng/mL (<0.04)
[2019-03-22] MEDS: Chlorhexidine MOUTHWASH 0.12%* 15 ML UDC TOPICAL SCH ×3 (02:00→10:23)
[2019-03-22] MEDS: Propofol* 100 ML IV SCH (04:35)
[2019-03-22 05:05] LABS: Hematocrit 41 % (42-52); Hemoglobin 14.1 g/dL (14.0-18.0); Mean Corpuscular HGB Conc 35 g/dL (31-36); Mean Corpuscular Hemoglobin 35 pg (27-31); Mean Corpuscular Volume 103 fL (80-94); Mean Platelet Volume 8.1 fL (7.4-10.4); Platelet Count 206 10^3/uL (150-450); Red Blood Count 3.98 10^6 /uL (4.18-5.48); Red Cell Distribution Width 14 % (10-15); White Blood Count 7.2 10^3/uL (3.5-10.8)
[2019-03-22 05:23] LABS: ALT 8 U/L (7-52); AST 18 U/L (13-39); Albumin 2.9 g/dL (3.2-5.2); Albumin/Globulin Ratio 1.1 (1-3); Alkaline Phosphatase 64 U/L (34-104); Anion Gap 7 mmol/L (2-11); BUN/Creatinine Ratio 23.2 (8-20); Blood Urea Nitrogen 13 mg/dL (6-24); CO2 Carbon Dioxide 23 mmol/L (22-32); Calcium 7.8 mg/dL (8.6-10.3); Chloride 94 mmol/L (101-111); Creatine Kinase 156 U/L (10-223); EGFR African American 174.5 (>60); EGFR Non-African American 144.2 (>60); Globulin 2.7 g/dL (2-4); Glucose 94 mg/dL (70-100); Indirect Bilirubin 0.4 mg/dL (0.3-1.0); Magnesium 2.1 mg/dL (1.9-2.7); Phosphorus 2.6 mg/dL (2.5-5.0); Potassium 3.7 mmol/L (3.5-5.0); Sodium 124 mmol/L (135-145); Total Protein 5.6 g/dL (6.4-8.9)
[2019-03-22 05:28] LABS: Troponin I 0.06 ng/mL (<0.04)
[2019-03-22] MEDS ORDERED: Levothyroxine TAB* 125 MCG TAB PO SCH (06:00)
[2019-03-22] MEDS ORDERED: NS 0.9% 1000 ML** 1,000 ML IV SCH (07:00)
--- NOTE | 2019-03-22 08:25 | CATH ---
TEMPORARY PACEMAKER REPORT: DATE OF PROCEDURE: 03/21/19 INDICATION FOR PROCEDURE: Asked by Dr. Garcia (coroner's juror involved in the case) to place a temporary pacing wire from the femoral vein approach in a patient with complete heart block, found unresponsive in the field and suggestive findings of low cardiac output state. PROCEDURE: Placement of a 5-Bengali balloon tip floating pacing wire via the right femoral vein under x-ray guidance. DESCRIPTION OF PROCEDURE: The patient was brought to the cardiovascular lab where a formal time-out was performed. The patient was prepped and draped in a sterile fashion and the right groin area was anesthetized with 1% lidocaine. Utilizing ultrasound guidance, the right femoral vein was cannulated and a 6- Bengali introducer was placed. A 5-Bengali balloon tip floating pacing wire was advanced to the RV and checked for a capture. It captured all the way down to at least 0.5 mA. The pacemaker was then set at a rate of 60 at the request of Dr. Arben Mancini (field applications specialist). He was given an mA of 5 in full demand. The sheath and pacing wire was sutured in place and a sterile dressing was placed. There was minimal blood loss and no significant complications. [id number]/[facility] #: [id number] [facility] CENTERDavid
[2019-03-22] MEDS ORDERED: Pantoprazole IV* 40 MG IV SCH (09:00)
[2019-03-22] MEDS ORDERED: KCL 20 MEQ/100 ML IVPREMIX* 20 MEQ/100 ML BAG IV ONE (10:40)
--- NOTE | 2019-03-22 10:45 | PN ---
Progress Note - Progress Note Date of Service: 03/22/19 Note: Progress Note -- Critical Care 24 hour events -noted events yesterday; remained intubated, on propofol -episodes of hypotension but responded to fluids -afebrile -remains pacing 60s; this morning turned down TVP and still pacing 30s, held pacing and asystolic underneath -not on pressors -making urine -off sedation follows all commands; on c-collar; moving all ext, no spinal tenderness, no pain on asking Tele: Vpacing 60s Vitals: Vital Signs Temp 97.2 F 03/22/19 08:01 Pulse 61 03/22/19 08:01 Resp 16 03/22/19 07:41 BP 112/73 03/22/19 08:01 Pulse Ox 99 03/22/19 08:01 Intake & Output 03/21/19 03/22/19 03/22/19 18:59 06:59 18:59 Intake Total 100 2398.7 Output Total 280 750 65 Balance -180 1648.7 -65 Weight 56.109 kg 59.6 kg Intake: IV Fluids 100 2162 Banana Bag 507 NS 1153 Thiamine 502 IVPB 160 Mag 55 Thiamine 105 Medicated IV 76.7 Propofol 76.7 Output: G Tube 500 Arrieta 280 250 65 O2/Vent: AC 16/500/+5/50% Infusions: propofol, NS 50cc/hr Current Medications: Albuterol/Ipratropium (Duoneb (Albuterol 2.5 Mg/Ipratropium 0.5 Mg)) 1 neb INH Q4H PRN PRN Reason: SOB/WHEEZING Chlorhexidine Gluconate (Peridex Mouth Wash 0.12%*) 15 ml TOPICAL Q4HR [facility] Last Admin: 03/22/19 06:15 Dose: 15 ml Hydrocortisone Sodium Succinate (Solu-Cortef*) 100 mg IV Q8H [facility] Last Admin: 03/22/19 10:15 Dose: 100 mg Midazolam HCl 100 mg/ Sodium (Chloride) 100 mls @ 2 mls/hr IV Q24H [facility]; Protocol Last Admin: 03/21/19 15:58 Dose: 2 mls/hr Propofol (Diprivan*) 100 mls @ 6.733 mls/hr IV .(Initial Rate) [facility]; Protocol Last Admin: 03/22/19 04:35 Dose: 6.733 mls/hr Thiamine HCl 250 mg/ Sodium (Chloride) 102.5 mls @ 205 mls/hr IV Q24H [facility] Last Admin: 03/21/19 20:29 Dose: 205 mls/hr Sodium Chloride (Ns 0.9% 1000 Ml) 1,000 mls @ 50 mls/hr IV .PER RATE [facility] Last Admin: 03/22/19 07:15 Dose: 50 mls/hr Levothyroxine Sodium (Synthroid Inj*) 100 mcg IV 2000 [facility] Pantoprazole Sodium (Protonix Iv*) 40 mg IV DAILY [facility] Last Admin: 03/22/19 08:11 Dose: 40 mg Physical Exam: Constitutional: intubated, awake, alert, no distress, no diaphoresis Head: normocephalic, left frontal bruise+ Eyes: no pallor, no icterus ENT: moist mucous membranes Neck: soft, supple, no jvd CVS: normal rate/paced, regular, no murmur Resp: bilateral air entry, no RRW, no acc muscle use Abdomen/GI: soft, nontender, nondistended, BS+ Ext/Msk: warm, pulses+, no edema Skin: intact, warm Neuro: awake, alert, follows all commands, moves all ext Labs: Laboratory Results - last 24 hr 03/21/19 03/21/19 03/21/19 10:20 14:30 14:30 WBC 6.9 RBC 3.60 L Hgb 12.9 L Hct 37 L MCV 104 H MCH 36 H MCHC 35 RDW 14 Plt Count 248 MPV 7.9 Neut % (Auto) 75.2 Lymph % (Auto) 13.9 Wirt % (Auto) 10.0 Eos % (Auto) 0.4 Baso % (Auto) 0.5 Absolute Neuts (auto) 5.2 Absolute Lymphs (auto) 1.0 Absolute Monos (auto) 0.7 Absolute Eos (auto) 0.0 Absolute Basos (auto) 0.0 Absolute Nucleated RBC 0.0 Nucleated RBC % 0.1 INR (Anticoag Therapy) 1.22 H APTT 29.7 Patient Temperature ABG pH ABG pH (Temp Correct) ABG pCO2 ABG pCO2 (Temp Corrct ABG pO2 ABG pO2 (Temp Correct ABG HCO3 ABG O2 Saturation ABG Base Excess Respiration Rate O2 Delivery Device Ventilator Type Vent Mode FiO2 Inspiratory Time PEEP Pressure Support Pressure Control EPAP IPAP BiPAP Sodium Potassium Chloride Carbon Dioxide Anion Gap BUN Creatinine Est GFR ( Amer) Est GFR (Non-Af Amer) BUN/Creatinine Ratio Glucose Lactic Acid Calcium Phosphorus Magnesium Total Bilirubin Direct Bilirubin Indirect Bilirubin AST ALT Alkaline Phosphatase Ammonia Total Creatine Kinase Troponin I Total Protein Albumin Globulin Albumin/Globulin Ratio Triglycerides Cholesterol LDL Cholesterol HDL Cholesterol TSH Cortisol Urine Color Yellow Urine Appearance Cloudy Urine pH 6.0 Ur Specific [place] 1.010 Urine Protein 1+(30 mg/dl) A Urine Ketones Negative Urine Blood 1+ A Urine Nitrate Negative Urine Bilirubin Negative Urine Urobilinogen Negative Ur Leukocyte Esterase Negative Urine WBC (Auto) Trace(0-5/hpf) Urine RBC (Auto) Trace(0-2/hpf) Urine Bacteria Absent Hyaline Casts Present A Urine Glucose Negative Urine Opiates Screen Ur Barbiturates Screen Ur Phencyclidine Scrn Ur Amphetamines Screen U Benzodiazepines Scrn Urine Cocaine Screen U Cannabinoids Screen Serum Alcohol 03/21/19 03/21/19 03/21/19 14:30 14:30 15:20 WBC RBC Hgb Hct MCV MCH MCHC RDW Plt Count MPV Neut % (Auto) Lymph % (Auto) Wirt % (Auto) Eos % (Auto) Baso % (Auto) Absolute Neuts (auto) Absolute Lymphs (auto) Absolute Monos (auto) Absolute Eos (auto) Absolute Basos (auto) Absolute Nucleated RBC Nucleated RBC % INR (Anticoag Therapy) APTT Patient Temperature Not Reportable ABG pH 7.25 L ABG pH (Temp Correct) Not Reportable ABG pCO2 46 H ABG pCO2 (Temp Corrct Not Reportable ABG pO2 190 H ABG pO2 (Temp Correct Not Reportable ABG HCO3 19.4 ABG O2 Saturation 100.0 H ABG Base Excess -7.0 L Respiration Rate 14 O2 Delivery Device mech vent Ventilator Type 400 Vent Mode cmv FiO2 50 Inspiratory Time Not Reportable PEEP 5 Pressure Support Not Reportable Pressure Control Not Reportable EPAP Not Reportable IPAP Not Reportable BiPAP Not Reportable Sodium 123 L Potassium 4.2 Chloride 90 L Carbon Dioxide 16 L Anion Gap 17 H BUN 14 Creatinine 0.73 Est GFR ( Amer) 128.5 Est GFR (Non-Af Amer) 106.2 BUN/Creatinine Ratio 19.2 Glucose 152 H Lactic Acid 9.5 H* Calcium 7.9 L Phosphorus Magnesium 1.7 L Total Bilirubin 0.50 Direct Bilirubin Indirect Bilirubin AST 16 ALT 9 Alkaline Phosphatase 61 Ammonia Total Creatine Kinase 85 Troponin I 0.07 H* Total Protein 5.8 L Albumin 3.2 Globulin 2.6 Albumin/Globulin Ratio 1.2 Triglycerides 88 Cholesterol 109 LDL Cholesterol 39 HDL Cholesterol 52.5 TSH Cortisol Urine Color Urine Appearance Urine pH Ur Specific [place] Urine Protein Urine Ketones Urine Blood Urine Nitrate Urine Bilirubin Urine Urobilinogen Ur Leukocyte Esterase Urine WBC (Auto) Urine RBC (Auto) Urine Bacteria Hyaline Casts Urine Glucose Urine Opiates Screen Ur Barbiturates Screen Ur Phencyclidine Scrn Ur Amphetamines Screen U Benzodiazepines Scrn Urine Cocaine Screen U Cannabinoids Screen Serum Alcohol 10 03/21/19 03/21/19 03/21/19 18:33 20:20 20:20 WBC RBC Hgb Hct MCV MCH MCHC RDW Plt Count MPV Neut % (Auto) Lymph % (Auto) Wirt % (Auto) Eos % (Auto) Baso % (Auto) Absolute Neuts (auto) Absolute Lymphs (auto) Absolute Monos (auto) Absolute Eos (auto) Absolute Basos (auto) Absolute Nucleated RBC Nucleated RBC % INR (Anticoag Therapy) APTT Patient Temperature ABG pH ABG pH (Temp Correct) ABG pCO2 ABG pCO2 (Temp Corrct ABG pO2 ABG pO2 (Temp Correct ABG HCO3 ABG O2 Saturation ABG Base Excess Respiration Rate O2 Delivery Device Ventilator Type Vent Mode FiO2 Inspiratory Time PEEP Pressure Support Pressure Control EPAP IPAP BiPAP Sodium Potassium Chloride Carbon Dioxide Anion Gap BUN Creatinine Est GFR ( Amer) Est GFR (Non-Af Amer) BUN/Creatinine Ratio Glucose Lactic Acid 1.5 Calcium Phosphorus Magnesium Total Bilirubin Direct Bilirubin Indirect Bilirubin AST ALT Alkaline Phosphatase Ammonia 33 Total Creatine Kinase Troponin I Total Protein Albumin Globulin Albumin/Globulin Ratio Triglycerides Cholesterol LDL Cholesterol HDL Cholesterol TSH Cortisol Urine Color Urine Appearance Urine pH Ur Specific [place] Urine Protein Urine Ketones Urine Blood Urine Nitrate Urine Bilirubin Urine Urobilinogen Ur Leukocyte Esterase Urine WBC (Auto) Urine RBC (Auto) Urine Bacteria Hyaline Casts Urine Glucose Urine Opiates Screen None detected Ur Barbiturates Screen None detected Ur Phencyclidine Scrn None detected Ur Amphetamines Screen None detected U Benzodiazepines Scrn Presumptive positive A Urine Cocaine Screen None detected U Cannabinoids Screen None detected Serum Alcohol 03/21/19 03/21/19 03/22/19 20:20 20:20 01:00 WBC RBC Hgb Hct MCV MCH MCHC RDW Plt Count MPV Neut % (Auto) Lymph % (Auto) Wirt % (Auto) Eos % (Auto) Baso % (Auto) Absolute Neuts (auto) Absolute Lymphs (auto) Absolute Monos (auto) Absolute Eos (auto) Absolute Basos (auto) Absolute Nucleated RBC Nucleated RBC % INR (Anticoag Therapy) APTT Patient Temperature ABG pH ABG pH (Temp Correct) ABG pCO2 ABG pCO2 (Temp Corrct ABG pO2 ABG pO2 (Temp Correct ABG HCO3 ABG O2 Saturation ABG Base Excess Respiration Rate O2 Delivery Device Ventilator Type Vent Mode FiO2 Inspiratory Time PEEP Pressure Support Pressure Control EPAP IPAP BiPAP Sodium Potassium Chloride Carbon Dioxide Anion Gap BUN Creatinine Est GFR ( Amer) Est GFR (Non-Af Amer) BUN/Creatinine Ratio Glucose Lactic Acid Calcium Phosphorus Magnesium Total Bilirubin Direct Bilirubin Indirect Bilirubin AST ALT Alkaline Phosphatase Ammonia Total Creatine Kinase Troponin I 0.08 H* 0.07 H* Total Protein Albumin Globulin Albumin/Globulin Ratio Triglycerides Cholesterol LDL Cholesterol HDL Cholesterol TSH 21.30 H Cortisol 7.46 Urine Color Urine Appearance Urine pH Ur Specific [place] Urine Protein Urine Ketones Urine Blood Urine Nitrate Urine Bilirubin Urine Urobilinogen Ur Leukocyte Esterase Urine WBC (Auto) Urine RBC (Auto) Urine Bacteria Hyaline Casts Urine Glucose Urine Opiates Screen Ur Barbiturates Screen Ur Phencyclidine Scrn Ur Amphetamines Screen U Benzodiazepines Scrn Urine Cocaine Screen U Cannabinoids Screen Serum Alcohol 03/22/19 03/22/19 03/22/19 04:55 04:55 04:55 WBC 7.2 RBC 3.98 L Hgb 14.1 Hct 41 L MCV 103 H MCH 35 H MCHC 35 RDW 14 Plt Count 206 MPV 8.1 Neut % (Auto) Lymph % (Auto) Wirt % (Auto) Eos % (Auto) Baso % (Auto) Absolute Neuts (auto) Absolute Lymphs (auto) Absolute Monos (auto) Absolute Eos (auto) Absolute Basos (auto) Absolute Nucleated RBC Nucleated RBC % INR (Anticoag Therapy) APTT Patient Temperature ABG pH ABG pH (Temp Correct) ABG pCO2 ABG pCO2 (Temp Corrct ABG pO2 ABG pO2 (Temp Correct ABG HCO3 ABG O2 Saturation ABG Base Excess Respiration Rate O2 Delivery Device Ventilator Type Vent Mode FiO2 Inspiratory Time PEEP Pressure Support Pressure Control EPAP IPAP BiPAP Sodium 124 L Potassium 3.7 Chloride 94 L Carbon Dioxide 23 Anion Gap 7 BUN 13 Creatinine 0.56 L Est GFR ( Amer) 174.5 Est GFR (Non-Af Amer) 144.2 BUN/Creatinine Ratio 23.2 H Glucose 94 Lactic Acid 0.8 Calcium 7.8 L Phosphorus 2.6 Magnesium 2.1 Total Bilirubin 0.60 Direct Bilirubin 0.20 H Indirect Bilirubin 0.4 AST 18 ALT 8 Alkaline Phosphatase 64 Ammonia Total Creatine Kinase 156 Troponin I 0.06 H* Total Protein 5.6 L Albumin 2.9 L Globulin 2.7 Albumin/Globulin Ratio 1.1 Triglycerides Cholesterol LDL Cholesterol HDL Cholesterol TSH Cortisol Urine Color Urine Appearance Urine pH Ur Specific [place] Urine Protein Urine Ketones Urine Blood Urine Nitrate Urine Bilirubin Urine Urobilinogen Ur Leukocyte Esterase Urine WBC (Auto) Urine RBC (Auto) Urine Bacteria Hyaline Casts Urine Glucose Urine Opiates Screen Ur Barbiturates Screen Ur Phencyclidine Scrn Ur Amphetamines Screen U Benzodiazepines Scrn Urine Cocaine Screen U Cannabinoids Screen Serum Alcohol Imaging: EKG 03/21 NSR with complete heart block, Junctional escape rhythm in 30-40s; 1st EKG with diffuse Twave inversions anterior but peaked in inferior leads CT brain 03/21 - no acute process CTA head 03/21 - no large vessel occlusion noted Cervical spine CT - degen disc disease wiht subluxations noted CXR 03/21 - no infiltrates, hyperinfalted lung jeronimo, Ett above supriya Assessment: 68y M w/pmhx of COPD, HTN, Alcoholism, hypothyroidism; patient was brought in by EMS after being found unresponsive in front of a bar. Unclear what happened but he was found agonal breathing, unresponsive, bradycardic, given atropine and bagged with BMV, BG 187. He started to move more enroute to hospital. Unclear history if he was in bar or drinking, unwitnessed but later history told he was not in bar but going to. In ER, he was not moving the left arm even with EMS. BP 209/100 by EMS, then 180s. in ER, EKG demonstrated sinus rhythm with complete heart block, HR 30-40s, diffuse Twave inversions noted. STEMI code called but deemed not likely a STEMI. Given neuro deficit a stroke code called, CT brain without acute process, CTA head without acute fractures. He was taken to vat house laborer for temporary pacing wire given unknown etiology of unresponsiveness and now with new heart block. -Encephalopathy; resolved; likely from hypoperfusion -Left frontal bruise/trauma -Acute hypercapneic and hypoxic respiratory failure; intubated 03/21 -Complete Heart block; no escape; TVP 03/21 -Moderate atleast -Shock resolved; was cardiogenic from complete heart block -Metabolic acidosis/lactic acidosis -HYponatremia -alcohol abuse COPD hypothyroidism Plan: Neuro- -off propofol; awake/alert; follows commands -no spinal tenderness, CT cervical spine and brain withotu acute pathology; moving all ext to command -d/c c-collar -started on iv hydrocortisone and levothyroxine for possible myxedema given noncompliance and now bradycardia -thiamine iv 100mcg daily; hydrocortisone 100mg q8h -daily sedation vacation/neurochecks -Delirium prec; avoid BDZ CVS- -BP stable -currently 100% pacer dependant; underlying NSR with complete heart block, no escape was noted on pacer being paused -EKG reviewed, no new ischemic changed noted -noted trop minimal rise; -03/21 TTE with normal LV function, moderate with estimated LEON 1.12 atleast -consider ELLIOTT for further eval -discussed with cardiology; re-eval after weekend; likely to need PPM placement -may also need LHC, and further eval of Aortic Valve; this may be calcific dege disease, r/o if valve intervention needed, if calcium affecting conduction system also. -Cont TVP right femoral vein for CHB; now pacing at 60 -hold antihypertensives/BB -cardiology following -Maintain MAP>65 Resp- -intubated 50%; CPAP well; CXR pending -extubation in progress -Wean Fio2 to keep sat>92% -Bronchodilators PRN, Aspiration prec, Pulmonary Toilet -VAP bundle ID- afebrile. wbc normal. -CXR 03/21 without focal infiltrate -no infection suspected at this time GI- -swallow eval; cardiac diet if passed -ammonia normal -GI prophylaxis - ppi Renal- -Cr okay; making urine; replete KCL IV -strict I/O, replete to keep K>4, Mg>2 -arrieta as indicated Heme- hg stable, plt stable; no bleeding noted -DVT proph with SCD Endo- Maintain BG<200, insulin protocol as needed -noncompliant with meds for months now; started on hydrocortisone and levothyroxine IV -cortisol random yesterday 8 in evening; not suspecting adrenal insuff; would have preferred AM cortisol but it was not as high as I would have preferred given his stress state Musculsk- pressure ulcer prophylaxis. Bedrest. right leg immob due to TVP Wounds- left frontal bruise stable Nutrition- cardiac diet DVT prophylaxis: SCD GI prophylaxis: ppi Central Line: right fem TVP/sheath Arterial Line: no Arrieta Cathetor: yes Disposition: Patient requires Critical Care/ICU for complete heart block, respiratoyr failure req intubation Patient Clinical Status: guarded, critical discussed with daughter at bedside today and yesterday Code Status: full code Total Critical Care time is 50 minutes, excluding procedures/teaching Arben Mancini MD Algology Teacher (Electronically Signed)
[2019-03-22] MEDS ORDERED: Acetaminophen TAB* 325 MG PO PRN (10:49)
[2019-03-22] MEDS ORDERED: Diazepam TAB(*) 10 MG PO SCH (11:00)
[2019-03-22] MEDS ORDERED: Diazepam TAB(*) 5 MG PO SCH (11:15)
[2019-03-22] MEDS ORDERED: Lorazepam PYXIS KEY PRN ×2 (11:29→13:53)
[2019-03-22] MEDS ORDERED: LORazepam INJ* 2 MG/ML 1 ML VIAL IV PUSH PRN (11:29)
[2019-03-22] MEDS ORDERED: Diazepam TAB(*) 5 MG PO ONE (11:29)
[2019-03-22] MEDS ORDERED: LORazepam INJ* 2 MG/ML 1 ML VIAL IV PUSH ONE (13:53)
[2019-03-22] MEDS ORDERED: LORazepam INJ* 2 MG/ML 1 ML VIAL IV PUSH SCH (14:00)
[2019-03-22] MEDS: Nicotine PATCH 7 MG/24 HR* PATCH TRANSDERM SCH (14:11)
--- NOTE | 2019-03-22 14:49 | CONS ---
NEUROLOGY CONSULT FOLLOWUP: DATE OF FOLLOWUP: 03/22/19 LOCATION: He is an inpatient, ICU bed 7. [facility] PH[employer] TECHNICIAN: Dr. Mancini. CHIEF COMPLAINT: Unresponsiveness, left-sided weakness. INTERVAL HISTORY: Since yesterday, Anjum has been extubated. He is moving all his extremities. He has a temporary pacemaker in. He was in complete heart block. MEDICATIONS: Reviewed. He is on: 1. Folic acid 1 mg p.o. q. day. 2. Solu-Cortef 100 mg IV q.8 hours. 3. Levothyroxine 100 mcg IV q. day. 4. Lorazepam 1 mg IV q.4 hours p.r.n. anxiety or withdrawal. 5. Multivitamin 1 p.o. q. day. 6. Protonix 40 mg IV q. day. 7. Thiamine 250 mg IV q.24 hours. PHYSICAL EXAM: He is a disheveled gentleman with ecchymosis on his upper forehead and heavily tanned skin. Temperature most recently 96.8 by Tinsley probe, blood pressure is running 160/70, heart rate i s 60 and paced. Oxygen saturation is 97%, respiratory rate 15. Neurologically, he is awake and pleasantly confused. He denies headache. He is not able to provide any meaningful history. He does not indicate understanding of why he is here. He holds both arms up without any drift. Facial musculature is strong bilaterally. Facial sensation to nasal tickle is a little brisker on the left than the right, but present bilaterally. Speech is d ysarthric. He can move his feet bilaterally, but I did not test lower extremity strength otherwise. He has bilateral plantarflexion responses. LABORATORY DATA: Includes CBC with an MCV of 103 and a borderline anemia at 41%. Platelet count is n ormal at 206,000. His INR was elevated at 1.22. ABG yesterday with pH 7.25, pCO2 46, pO2 190, intub ated. Chemistries this morning notable for a sodium of 124. Looking back at prior lab tests, he has had chronic hyponatremia. He had a sodium as low as 114 back in 2014. His troponins have been eleva chantale at mostly recently 0.06. His liver enzymes are low normal. His cholesterol is 109 on admission and LDL 39. His TSH was elevated yesterday at 21.3. IMPRESSION AND PLAN: Impression is that of transient left hemiparesis in the setting of complete hea rt block. He is quite hypothyroid apparently and that may be a contributing factor to his heart bloc k. Currently, he has a pacer in. He had a CT angiogram of the head and neck, which did not reveal any stenosis or occlusive disease. His brain CT was negative on admission as well. If he is able to get an MRI scan, at some point we may opt to do so. At this point, it appears that he had a primary cardiac event with focal neurological deficits. At this point, the cardiac disorder takes precedence, this is no evidence of an active cerebrovascular process. He cannot get an MRI sc an with a pacer at this point and I presume he is going to have further cardiac workup to include an echocardiogram. I will continue to follow him along with you. [id number]/[facility] #: [id number]
[2019-03-22] MEDS: Albuterol/Ipratropium NEB.SOL* Albuterol 2.5 MG/Ipratropium 0.5 MG 3 ML INH PRN (16:30)
[2019-03-22] MEDS: Thiamine IV* 250 MG in NS 0.9% 100 ML* 100 ML IV SCH (19:51)
[2019-03-22] MEDS ORDERED: Levothyroxine INJ* 100 MCG/5 ML VIAL IV SCH (20:00)
[2019-03-22] MEDS: Nicotine Patch Removal NOTE PATCH OFF SCH (21:13)
[2019-03-22] MEDS: NS 0.9% 1000 ML** 1,000 ML IV SCH (21:43)
[2019-03-23 04:21] LABS: Hematocrit 44 % (42-52); Mean Corpuscular HGB Conc 34 g/dL (31-36); Mean Corpuscular Hemoglobin 35 pg (27-31); Mean Corpuscular Volume 104 fL (80-94); Mean Platelet Volume 8.4 fL (7.4-10.4); Platelet Count 209 10^3/uL (150-450); Red Blood Count 4.28 10^6 /uL (4.18-5.48); Red Cell Distribution Width 15 % (10-15); White Blood Count 14.2 10^3/uL (3.5-10.8)
[2019-03-23 04:43] LABS: Albumin 2.8 g/dL (3.2-5.2); BUN/Creatinine Ratio 19.7 (8-20); Calcium 8.1 mg/dL (8.6-10.3); EGFR African American 144.4 (>60); EGFR Non-African American 119.3 (>60); Globulin 2.9 g/dL (2-4); Indirect Bilirubin 0.4 mg/dL (0.3-1.0); Phosphorus 4.1 mg/dL (2.5-5.0); Potassium 4.6 mmol/L (3.5-5.0); Total Bilirubin 0.5 mg/dL (0.2-1.0); Total Protein 5.7 g/dL (6.4-8.9)
[2019-03-23] MEDS: NS 0.9% 1000 ML** 1,000 ML IV SCH ×3 (07:46→19:27)
[2019-03-23] MEDS: Hydrocortisone INJ* 100 MG VIAL IV SCH ×2 (08:18→21:09)
[2019-03-23] MEDS: Pantoprazole TAB * 40 MG TAB PO SCH (08:19)
[2019-03-23] MEDS: Nicotine PATCH 7 MG/24 HR* PATCH TRANSDERM SCH (08:19)
[2019-03-23] MEDS: Folic Acid TAB* 1 MG PO SCH (08:19)
[2019-03-23] MEDS: Multivitamins/Minerals TAB PO SCH (08:19)
--- NOTE | 2019-03-23 12:08 | PN ---
Progress Note - Progress Note Date of Service: 03/23/19 Note: Progress Note -- Critical Care 24 hour events -extubated yesterday; no further events noted -afebrile -low urine output but BP/HR stable -remains Vpaced via Right fem TVP 100% at 60-70s, underlying CHB -states he has been having syncopal episodes for weeks; no dyspnea/chest pain but unable to walk up incline/stairs -no bleeding from Right groin site Tele: Vpacing 60s Vitals: Vital Signs Temp 98.8 F 03/23/19 12:00 Pulse 62 03/23/19 12:00 Resp 24 03/23/19 12:00 BP 129/64 03/23/19 12:00 Pulse Ox 98 03/23/19 12:00 Intake & Output 03/22/19 03/23/19 03/23/19 18:59 06:59 18:59 Intake Total 943.6 1577 0 Output Total 484 232 103 Balance 459.6 1345 -103 Weight 62.3 kg Intake: IV Fluids 537.6 1467 NS 537.6 1467 IVPB 106 110 Potassium Chloride 106 Thiamine 110 Oral 0 NG Tube Irrigate Amount 300 Output: NG Tube Drainage Amount 150 Arrieta 334 232 103 Other: Date of Last Bowel 03/23/19 Movement # Bowel Movements 1 Estimated Stool Amount Small O2/Vent: RA Infusions: Ns 75cc/hr Current Medications: Acetaminophen (Tylenol Tab*) 650 mg PO Q4H PRN PRN Reason: PAIN Albuterol/Ipratropium (Duoneb (Albuterol 2.5 Mg/Ipratropium 0.5 Mg)) 1 neb INH Q4H PRN PRN Reason: SOB/WHEEZING Last Admin: 03/22/19 16:30 Dose: 1 neb Diazepam (Valium Tab(*)) 0 - 30 mg PO .PER [facility] PROTOCOL [facility]; Protocol Folic Acid (Folvite Tab*) 1 mg PO DAILY [facility] Last Admin: 03/23/19 08:19 Dose: 1 mg Hydrocortisone Sodium Succinate (Solu-Cortef*) 50 mg IV Q12H [facility] Stop: 03/25/19 11:59 Sodium Chloride (Ns 0.9% 1000 Ml) 1,000 mls @ 75 mls/hr IV .PER RATE [facility] Levothyroxine Sodium (Synthroid Tab*) 50 mcg PO DAILY@0600 [facility] Lorazepam (Ativan Inj*) 0 - 3 mg IV PUSH .PER [facility] PROTOCOL [facility]; Protocol Miscellaneous (Ativan Pyxis Cantrell) 1 ea N/A .ATIVAN IV CANTRELL PRN PRN Reason: PYXIS CANTRELL Miscellaneous (Ativan Pyxis Cantrell) 1 ea N/A .ATIVAN IV CANTRELL PRN PRN Reason: PYXIS CANTRELL Multivitamins/Minerals (Theragran/Minerals Tab*) 1 tab PO DAILY [facility] Last Admin: 03/23/19 08:19 Dose: 1 tab Nicotine (Nicotine Patch 7 Mg/24 Hr*) 1 patch TRANSDERM DAILY [facility] Last Admin: 03/23/19 08:19 Dose: 1 patch Pantoprazole Sodium (Protonix Tab*) 40 mg PO DAILY [facility] Last Admin: 03/23/19 08:19 Dose: 40 mg Pharmacy Profile Note (Nicotine Patch Removal Note*) 1 note PATCH OFF 2100 [facility] Last Admin: 03/22/19 21:13 Dose: 1 note Thiamine HCl (Vitamin B-1 Tab*) 100 mg PO DAILY [facility] Physical Exam: Constitutional: awake, alert, no distress, no diaphoresis Head: normocephalic, left frontal bruise+ Eyes: no pallor, no icterus ENT: moist mucous membranes Neck: soft, supple, no jvd CVS: normal rate/paced, regular, no murmur Resp: bilateral air entry, no RRW, no acc muscle use Abdomen/GI: soft, nontender, nondistended, BS+ Ext/Msk: warm, pulses+, no edema; Right groin intact without bleeding Skin: intact, warm Neuro: awake, alert, follows all commands, moves all ext Labs: Laboratory Results - last 24 hr 03/23/19 03/23/19 04:12 04:12 WBC 14.2 H RBC 4.28 Hgb 15.0 Hct 44 MCV 104 H MCH 35 H MCHC 34 RDW 15 Plt Count 209 MPV 8.4 Sodium 128 L Potassium 4.6 Chloride 97 L Carbon Dioxide 23 Anion Gap 8 BUN 13 Creatinine 0.66 L Est GFR ( Amer) 144.4 Est GFR (Non-Af Amer) 119.3 BUN/Creatinine Ratio 19.7 Glucose 131 H Calcium 8.1 L Phosphorus 4.1 Magnesium 2.0 Total Bilirubin 0.50 Direct Bilirubin 0.10 Indirect Bilirubin 0.4 AST 15 ALT 9 Alkaline Phosphatase 64 Total Protein 5.7 L Albumin 2.8 L Globulin 2.9 Albumin/Globulin Ratio 1.0 Imaging: EKG 03/21 NSR with complete heart block, Junctional escape rhythm in 30-40s; 1st EKG with diffuse Twave inversions anterior but peaked in inferior leads CT brain 03/21 - no acute process CTA head 03/21 - no large vessel occlusion noted Cervical spine CT - degen disc disease wiht subluxations noted CXR 03/21 - no infiltrates, hyperinfalted lung jeronimo, Ett above supriya Assessment: 68y M w/pmhx of COPD, HTN, Alcoholism, hypothyroidism; patient was brought in by EMS after being found unresponsive in front of a bar. Unclear what happened but he was found agonal breathing, unresponsive, bradycardic, given atropine and bagged with BMV, BG 187. He started to move more enroute to hospital. Unclear history if he was in bar or drinking, unwitnessed but later history told he was not in bar but going to. In ER, he was not moving the left arm even with EMS. BP 209/100 by EMS, then 180s. in ER, EKG demonstrated sinus rhythm with complete heart block, HR 30-40s, diffuse Twave inversions noted. STEMI code called but deemed not likely a STEMI. Given neuro deficit a stroke code called, CT brain without acute process, CTA head without acute fractures. 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 -Encephalopathy; resolved; likely from hypoperfusion -Left frontal bruise/trauma -Acute hypercapneic and hypoxic respiratory failure; intubated 03/21; ext 03/22 -Complete Heart block; no escape; TVP 03/21 -Moderate atleast -Shock resolved; was cardiogenic from complete heart block -Metabolic acidosis/lactic acidosis -HYponatremia -alcohol abuse COPD hypothyroidism Plan: Neuro- -awake/alert -frontal bruise stable -cont po thiamine daily -on [facility] protocol for alcohol withdrawal; stable appearing, not restless, PRN valium and ativan ordered as per protocol -Delirium prec; avoid BDZ CVS- -BP stable -currently 100% pacer dependant; underlying NSR with complete heart block, no escape was noted -Maintain pacing 60s -EKG reviewed, no new ischemic changed noted; noted trop minimal rise -03/21 TTE with normal LV function, moderate with estimated LEON 1.12 atleast -plan for eval tomorrow and PPM 1st -given history, symptoms and TTE; would recommend ischemic eval and likely ELLIOTT for further eval of Aortic Valves -discussed all findings with family; cardiiology followup -Cont TVP right femoral vein for CHB; now pacing at 60 -hold antihypertensives/BB -Maintain MAP>65 Resp- -RA, no distress -Wean Fio2 to keep sat>92% -Bronchodilators PRN, Aspiration prec, Pulmonary Toilet ID- afebrile. wbc 15 -CXR 03/21 without focal infiltrate -no infection suspected at this time GI- -cardiac diet -GI prophylaxis - ppi Renal- -Cr okay; making urine; replete KCL IV -strict I/O, replete to keep K>4, Mg>2 -arrieta as indicated Heme- hg stable, plt stable; no bleeding noted -DVT proph with SCD Endo- Maintain BG<200, insulin protocol as needed -noncompliant with meds; low suspicion for adrenal insuff given cardiac disease ; taper quick hydrocortisone next 24-48 hours -change levothyroxine to 50mcg po daily Musculsk- pressure ulcer prophylaxis. Bedrest. right leg immob due to TVP Wounds- left frontal bruise stable Nutrition- cardiac diet DVT prophylaxis: SCD GI prophylaxis: ppi Central Line: right fem TVP/sheath Arterial Line: no Arrieta Cathetor: yes Disposition: Patient requires Critical Care/ICU for complete heart block requiring Transvenous pacing Patient Clinical Status: guarded discussed with daughter at bedside today and patient; he made himself DNR. Rosmeryer plan of care with cardiology and patient to be made. Code Status: full code Total Critical Care time is 35 minutes, excluding procedures/teaching Arben Mancini MD Mechanical Research Engineer (Electronically Signed)
[2019-03-23] MEDS: Thiamine TAB* 100 MG TAB PO SCH (13:24)
[2019-03-23] MEDS: Nicotine Patch Removal NOTE PATCH OFF SCH (21:09)
[2019-03-24] MEDS: Levothyroxine TAB* 50 MCG TAB PO SCH (05:19)
[2019-03-24 05:25] LABS: Hematocrit 42 % (42-52); Hemoglobin 14.4 g/dL (14.0-18.0); Mean Corpuscular HGB Conc 34 g/dL (31-36); Mean Corpuscular Hemoglobin 36 pg (27-31); Mean Corpuscular Volume 105 fL (80-94); Mean Platelet Volume 7.9 fL (7.4-10.4); Platelet Count 203 10^3/uL (150-450); Red Blood Count 4.04 10^6 /uL (4.18-5.48); Red Cell Distribution Width 14 % (10-15); White Blood Count 12.6 10^3/uL (3.5-10.8)
[2019-03-24 05:43] LABS: Albumin 3.2 g/dL (3.2-5.2); Calcium 8.6 mg/dL (8.6-10.3); EGFR African American 152.3 (>60); EGFR Non-African American 125.9 (>60); Globulin 3.2 g/dL (2-4); Indirect Bilirubin 0.3 mg/dL (0.3-1.0); Phosphorus 2.7 mg/dL (2.5-5.0); Total Bilirubin 0.4 mg/dL (0.2-1.0); Total Protein 6.4 g/dL (6.4-8.9)
[2019-03-24] MEDS ORDERED: ceFAZolin 1 GM/10 ML flush(*) SYRINGE for pocket flush (cardiology) FLUSH ONE (08:38)
[2019-03-24] MEDS ORDERED: Diazepam TAB(*) 5 MG PO ONE (08:38)
[2019-03-24] MEDS ORDERED: ceFAZolin 2 GM PREMIX in ORs 2 GM/50 ML BAG IVPB ONE (08:38)
[2019-03-24] MEDS ORDERED: NS 0.9% 1000 ML** 1,000 ML IV SCH (08:45)
[2019-03-24] MEDS: Multivitamins/Minerals TAB PO SCH (09:00)
[2019-03-24] MEDS ORDERED: ADVAN IVPB ONE ×3 (09:00)
[2019-03-24] MEDS ORDERED: NS 0.9% IVPB ONE ×3 (09:00)
[2019-03-24] MEDS ORDERED: CEFAZOLIN IVPB ONE ×3 (09:00)
[2019-03-24] MEDS: Thiamine TAB* 100 MG TAB PO SCH (09:01)
[2019-03-24] MEDS: Pantoprazole TAB * 40 MG TAB PO SCH (09:01)
[2019-03-24] MEDS: Nicotine PATCH 7 MG/24 HR* PATCH TRANSDERM SCH (09:02)
[2019-03-24] MEDS: Folic Acid TAB* 1 MG PO SCH (09:02)
[2019-03-24] MEDS ORDERED: Lidocaine 1% INJ* 10 MG/ML 30 ML SDV ONE (09:08)
[2019-03-24] MEDS ORDERED: Midazolam* 1 MG/ML 5 ML VIAL (5 MG) ONE (09:09)
[2019-03-24] MEDS ORDERED: Flumazenil* 0.1 MG/ML 5 ML MDV ONE (09:09)
[2019-03-24] MEDS ORDERED: Naloxone* 0.4 MG/ML 1 ML VIAL ONE (09:09)
[2019-03-24] MEDS ORDERED: fentaNYL* 50 MCG/ML 2 ML VIAL (100 MCG VIAL) ONE (09:09)
[2019-03-24] MEDS: Hydrocortisone INJ* 100 MG VIAL IV SCH ×2 (09:13→20:38)
[2019-03-24] MEDS ORDERED: oxyCODONE/Acetamin 5/325 MG* TAB PO PRN (10:37)
[2019-03-24] MEDS: Albuterol/Ipratropium NEB.SOL* Albuterol 2.5 MG/Ipratropium 0.5 MG 3 ML INH PRN (13:52)
[2019-03-24] MEDS ORDERED: Furosemide IV* 10 MG/ML 2 ML VIAL (20 MG) IV ONE (14:22)
[2019-03-24] MEDS: ceFAZolin VIAL(*) 1 GM in NS 0.9% 50 ML* 50 ML IVPB SCH ×2 (16:32→23:40)
[2019-03-24] MEDS: Nicotine Patch Removal NOTE PATCH OFF SCH (20:38)
--- NOTE | 2019-03-24 23:45 | OP ---
CC: Dr. Garcia * DATE OF OPERATION: 03/24/19 - ROOM #442 DATE OF : 46 SURGEON: Nigel Carrizales MD ANESTHESIA: Local anesthesia with conscious sedation. PRE-OP DIAGNOSIS: Third-degree heart block. POST-OP DIAGNOSIS: Third-degree heart block. OPERATIVE PROCEDURE: Pacemaker implantation, dual-chamber. ESTIMATED BLOOD LOSS: None. COMPLICATIONS: None. INDICATIONS: The patient is a 68-year-old gentleman who came to the emergency room after collapsing at a bar. He was found to be in third-degree heart block. A temporary pacemaker was placed by Dr. Patel. I saw the patient this morning and he still had episodes of third-degree heart block and needing pacemaker implantation. Permanent pacemaker was recommended. DESCRIPTION OF PROCEDURE: The patient was brought to the procedure room in a fasting state. Informed consent had been obtained prior to the procedure. All labs were reviewed. The patient was placed supine on the procedure table. His left deltopectoral area was cleaned and draped in the usual fashion. Lidocaine 1% was used for local anesthesia. Under ultrasound guidance, the axillary vein was entered by Seldinger technique and a guidewire was placed. A second guidewire was placed under the same technique. A 3.5 cm incision was made and blunt dissection was carried down to the pectoral fascia. A pocket was fashioned for the pacemaker. Over the first guidewire, a 7-Mohawk sheath introducer was placed, through which a right ventricular lead was advanced to the RV septum. The right ventricular lead is a Medtronic model 5076, serial number [id number]. It had an R-wave sensitivity of 13, impedance 728 ohms, threshold 1.2 volts at 0.5 msec. The ventricular lead was sutured to the pectoral fascia. Over the second guidewire, a 7-Mohawk sheath introducer was placed, through which a right atrial lead was advanced to the high right atrium. The right atrial lead is a Medtronic model 5076, serial number [id number]. It had a P-wave sensitivity of 1.1, impedance 675 ohms, threshold 0.5 volts at 0.5 msec. The atrial lead was sutured to the pectoral fascia. The pocket was flushed. A generator was attached appropriately to the atrioventricular lead. The pacemaker was placed in the pocket. The surgical incision was closed in 3 layers. The pacemaker was interrogated after being in the pocket and noted to be functioning normally. The patient was returned to the holding area in stable condition. [id number]/[facility] #: [id number] MTDD
[2019-03-25] MEDS: Levothyroxine TAB* 50 MCG TAB PO SCH (06:14)
[2019-03-25 07:06] LABS: Hematocrit 43 % (42-52); Mean Corpuscular HGB Conc 35 g/dL (31-36); Mean Corpuscular Hemoglobin 36 pg (27-31); Mean Corpuscular Volume 105 fL (80-94); Platelet Count 139 10^3/uL (150-450); Red Blood Count 4.13 10^6 /uL (4.18-5.48); Red Cell Distribution Width 15 % (10-15); White Blood Count 7.6 10^3/uL (3.5-10.8)
[2019-03-25 07:23] LABS: BUN/Creatinine Ratio 18.9 (8-20); Calcium 8.3 mg/dL (8.6-10.3); EGFR Non-African American 153.7 (>60); Magnesium 1.7 mg/dL (1.9-2.7); Phosphorus 2.8 mg/dL (2.5-5.0); Potassium 4.4 mmol/L (3.5-5.0)
[2019-03-25] MEDS: Pantoprazole TAB * 40 MG TAB PO SCH (08:25)
[2019-03-25] MEDS: Thiamine TAB* 100 MG TAB PO SCH (08:25)
[2019-03-25] MEDS: Nicotine PATCH 7 MG/24 HR* PATCH TRANSDERM SCH (08:25)
[2019-03-25] MEDS: Hydrocortisone INJ* 100 MG VIAL IV SCH (08:25)
[2019-03-25] MEDS: Folic Acid TAB* 1 MG PO SCH (08:26)
[2019-03-25] MEDS: Multivitamins/Minerals TAB PO SCH (08:26)
[2019-03-25] MEDS: ceFAZolin VIAL(*) 1 GM in NS 0.9% 50 ML* 50 ML IVPB SCH (08:27)
[2019-03-25] MEDS ORDERED: Magnesium Sulfate 2 GM IV* 2 GM/50 ML BAG IVPB ONE (08:33)
--- NOTE | 2019-03-25 09:14 | PN ---
<StefanynicolasSil - Last Filed: 03/25/19 09:08> Subjective Date of Service: 03/25/19 - s/p DC PPM implant due to high degree AVB Interval History: Per nurse (Felisa) patient fell last night while reaching for phone. He did not hit head, no LOC. He has been weak and has not been OOB. He denies chest pain. States breathing improved after IVP lasix x1 yesterday. No c/o dizziness, palpitations. Medications Active Medications: Acetaminophen (Tylenol Tab*) 650 mg PO Q4H PRN PRN Reason: PAIN Albuterol/Ipratropium (Duoneb (Albuterol 2.5 Mg/Ipratropium 0.5 Mg)) 1 neb INH Q4H PRN PRN Reason: SOB/WHEEZING Last Admin: 03/24/19 13:52 Dose: 1 neb Cephalexin HCl (Keflex Cap*) 250 mg PO TID [facility] Stop: 03/29/19 06:59 Diazepam (Valium Tab(*)) 0 - 30 mg PO .PER [place] PROTOCOL [facility]; Protocol Folic Acid (Folvite Tab*) 1 mg PO DAILY [facility] Last Admin: 03/25/19 08:26 Dose: 1 mg Hydrocortisone Sodium Succinate (Solu-Cortef*) 50 mg IV Q12H [facility] Stop: 03/25/19 19:59 Last Admin: 03/25/19 08:25 Dose: 50 mg Magnesium Sulfate (Magnesium Sulfate 2 Gm Iv*) 2 gm in 50 mls @ 50 mls/hr IVPB ONCE ONE Stop: 03/25/19 09:32 Levothyroxine Sodium (Synthroid Tab*) 50 mcg PO DAILY@0600 [facility] Last Admin: 03/25/19 06:14 Dose: 50 mcg Lorazepam (Ativan Inj*) 0 - 3 mg IV PUSH .PER [place] PROTOCOL [facility]; Protocol Miscellaneous (Ativan Pyxis Cantrell) 1 ea N/A .ATIVAN IV CANTRELL PRN PRN Reason: PYXIS CANTRELL Multivitamins/Minerals (Theragran/Minerals Tab*) 1 tab PO DAILY [facility] Last Admin: 03/25/19 08:26 Dose: 1 tab Nicotine (Nicotine Patch 7 Mg/24 Hr*) 1 patch TRANSDERM DAILY [facility] Last Admin: 03/25/19 08:25 Dose: 1 patch Oxycodone/Acetaminophen (Percocet 5/325 Tab*) 1 tab PO Q4H PRN PRN Reason: PAIN Pantoprazole Sodium (Protonix Tab*) 40 mg PO DAILY [facility] Last Admin: 03/25/19 08:25 Dose: 40 mg Pharmacy Profile Note (Nicotine Patch Removal Note*) 1 note PATCH OFF 2100 [facility] Last Admin: 03/24/19 20:38 Dose: 1 note Thiamine HCl (Vitamin B-1 Tab*) 100 mg PO DAILY [facility] Last Admin: 03/25/19 08:25 Dose: 100 mg Objective Vital Signs: Temp Pulse Resp BP Pulse Ox 98.3 F 73 20 141/80 100 03/25/19 05:00 03/25/19 05:00 03/25/19 05:00 03/25/19 05:00 03/25/19 06:00 Oxygen Devices in Use Now: None, Nasal Cannula Appearance: Lying in bed a+o x3, anxious but cooperative with exam. NAD Ears/Nose/Mouth/Throat: NL Teeth, Lips, Gums, Mucous Membranes Moist Neck: NL Appearance and Movements; NL JVP, Trachea Midline Respiratory: - - Diminished throughout, no evidence of adventicious breath sounds Cardiovascular: No Edema, - - Normal S1, S2 RRR, Grade 2/6 early systolic AV murmur. no gallop or rub. Skin: - - + bruising noted on bilateral upper extremities, left anterior chest device site intact, scant oozing noted from staple site, no evidenc of hematoma. non tender to palpation. edges well appoximated with rick in place Neurological: Alert and Oriented x 3 Lines/Tubes/Other Access: Clean, Dry and Intact Peripheral IV Laboratory Results: 03/25/19 06:10 03/25/19 06:10 INR (Anticoag Therapy) 1.22 (0.82-1.09) H 03/21/19 14:30 APTT 29.7 seconds (26.0-38.0) 03/21/19 14:30 Total Bilirubin 0.40 mg/dL (0.2-1.0) 03/24/19 05:12 Direct Bilirubin 0.10 mg/dL (0.03-0.18) 03/24/19 05:12 Indirect Bilirubin 0.3 mg/dL (0.3-1.0) 03/24/19 05:12 AST 17 U/L (13-39) 03/24/19 05:12 ALT 9 U/L (7-52) 03/24/19 05:12 Alkaline Phosphatase 63 U/L (34-104) 03/24/19 05:12 Total Protein 6.4 g/dL (6.4-8.9) 03/24/19 05:12 Albumin 3.2 g/dL (3.2-5.2) 03/24/19 05:12 Globulin 3.2 g/dL (2-4) 03/24/19 05:12 Albumin/Globulin Ratio 1.0 (1-3) 03/24/19 05:12 Triglycerides 88 mg/dL 03/21/19 14:30 Cholesterol 109 mg/dL 03/21/19 14:30 LDL Cholesterol 39 mg/dL 03/21/19 14:30 HDL Cholesterol 52.5 mg/dL 03/21/19 14:30 TSH 21.30 mcIU/mL (0.34-5.60) H 03/21/19 20:20 03/21/19 03/21/19 03/22/19 14:30 20:20 01:00 Troponin I 0.07 H* 0.08 H* 0.07 H* 03/22/19 04:55 Troponin I 0.06 H* Laboratory Results - last 24 hr 03/24/19 03/25/19 03/25/19 20:05 00:12 06:10 WBC 7.6 RBC 4.13 L Hgb 15.0 Hct 43 MCV 105 H MCH 36 H MCHC 35 RDW 15 Plt Count 139 L MPV 8.0 Sodium Potassium Chloride Carbon Dioxide Anion Gap BUN Creatinine Est GFR ( Amer) Est GFR (Non-Af Amer) BUN/Creatinine Ratio Glucose Lactic Acid 2.7 H* 0.6 Calcium Phosphorus Magnesium 03/25/19 06:10 WBC RBC Hgb Hct MCV MCH MCHC RDW Plt Count MPV Sodium 130 L Potassium 4.4 Chloride 99 L Carbon Dioxide 25 Anion Gap 6 BUN 10 Creatinine 0.53 L Est GFR ( Amer) 186.0 Est GFR (Non-Af Amer) 153.7 BUN/Creatinine Ratio 18.9 Glucose 115 H Lactic Acid Calcium 8.3 L Phosphorus 2.8 Magnesium 1.7 L Diagnostic Imaging: *[facility]* [place] [address] Fax #: [phone] Transthoracic Echocardiogram Patient: Anjum Chapman : 1950 Study Date: 03/21/2019 Age: 68 Gender: M HR: 40 bpm Height: 62 in /157.5 cm BSA: 1.51 m^2 Weight: 114.8 lb /52.2 kg BMI: 21 kg/m^2 *Knockup Worker: * Mihaela Soares [facility] *Referring Physician: * Isha Hui *Reading Physician: * Paola Garcia MD Indications: Abnormal EKG. History: Chronic obstructive pulmonary disease. Risk factors: Hypertension. Hiatal hernia, seizures. Conclusions Summary: 1. Left ventricle: The cavity size is mildly reduced. Wall thickness is moderately increased. Systolic function is normal. The estimated ejection fraction is 60-65%. Wall motion is normal; there are no regional wall motion abnormalities. There is no consistent Doppler evidence of clinically significant diastolic dysfunction. 2. Right ventricle: Systolic pressure cannot be accurately determined, but appears to be increased. 3. Ventricular septum: There is abnormal interventricular septal wall motion consistent with an RV pacemaker. 4. Left atrium: The atrium is severely dilated. 5. Mitral valve: The findings are consistent with mild stenosis. There is mild to moderate regurgitation. The peak E-wave velocity is 1.54 m/sec. The pressure half-time is 118 ms. The This report is only to be considered final once signed by the Provider(s) as displayed in the "<Electronically Signed by >" field (s). Absence of a signature indicates the report is in a draft status and still needs to be finalized. In the event this document was created by someone other than the signing Provider, the individual initiating the document will be listed in the "Entered by:" or "Dictated by:" jeronimo. EKG Data: 03/25/2019 ECG; Sinus rhythm rate 72 SIDE HEMMER. Telemetry reviewed Paced rhythm rate 70's Assessment/Plan #1 s/p unresponsive with evidence of third degree AVB. Echo 03/21/2019 normal wall motion. Troponin peaked at .08 on 03/21/2019. He is s/p DC PPM implant with Dr. Carrizales 03/24/2019. Device check today reviewed; SIDE HEMMER 16%, AP 1.3%. RV pacing threshold 0.4ms, Atrial pacing threshold 0.4ms. this mornings chest x-ray is pending to r/p pneumothorax. He will start Keflex 250mg Po TID starting tomorrow. No evidence of pocket hematoma. He did have increased SOB yesterday after implant that resolved with 20mg IV lasix. Of note he does have a h/o severe obstructive defect on 2014 PFTs he should f/u with PCP. #2 s/p fall 03/24/2019. Nurse voices concern for patient saftey and being weak. Will consult PT/OT to eval for ? rehab. He lives with his daughter Merlene. No did not hit head or loose consciousness. device site is intact. #3 h/o Hypothyroidism; TSH 21 on 03/21/2019. Levothyroxine was reduced to 50mcg/ day. will update TFTs. #4 h/o Alcoholism; per social work note from 03/24/2019 patient declined rehabilitation services. Daughter was given resource list. On multivitamin and thiamine. Mag to be replaced today #5 Moderate ; Peak gradient 27, mean 14 consistent with moderate . He is asymptomatic and will f/u with Dr. Garcia outpatient. #6 Disposition pending course. Patient DNR. Declined drug and alcohol rehabilitation. will consult PT/OT to evaluate for rehab. Await this mornings CXR to r/o pneumothorax. Dr Carrizales personally saw and evaluated patient and agrees with above assessment and plan. Attending: Nigel Carrizales <Nigel Carrizales - Last Filed: 03/31/19 07:36> Objective Vital Signs: Temp Pulse Resp BP Pulse Ox 98.2 F 87 18 168/81 96 03/26/19 13:00 03/26/19 13:00 03/26/19 13:00 03/26/19 13:00 03/26/19 13:00 Laboratory Results: 03/26/19 07:56 03/26/19 07:56 INR (Anticoag Therapy) 1.22 (0.82-1.09) H 03/21/19 14:30 APTT 29.7 seconds (26.0-38.0) 03/21/19 14:30 Total Bilirubin 0.40 mg/dL (0.2-1.0) 03/24/19 05:12 Direct Bilirubin 0.10 mg/dL (0.03-0.18) 03/24/19 05:12 Indirect Bilirubin 0.3 mg/dL (0.3-1.0) 03/24/19 05:12 AST 17 U/L (13-39) 03/24/19 05:12 ALT 9 U/L (7-52) 03/24/19 05:12 Alkaline Phosphatase 63 U/L (34-104) 03/24/19 05:12 Total Protein 6.4 g/dL (6.4-8.9) 03/24/19 05:12 Albumin 3.2 g/dL (3.2-5.2) 03/24/19 05:12 Globulin 3.2 g/dL (2-4) 03/24/19 05:12 Albumin/Globulin Ratio 1.0 (1-3) 03/24/19 05:12 Triglycerides 88 mg/dL 03/21/19 14:30 Cholesterol 109 mg/dL 03/21/19 14:30 LDL Cholesterol 39 mg/dL 03/21/19 14:30 HDL Cholesterol 52.5 mg/dL 03/21/19 14:30 TSH 10.17 mcIU/mL (0.34-5.60) H 03/25/19 09:45 03/21/19 03/21/19 03/22/19 14:30 20:20 01:00 Troponin I 0.07 H* 0.08 H* 0.07 H* 03/22/19 04:55 Troponin I 0.06 H* Assessment/Plan Patient seen and examined s/p pacer pacer site stable no erythema no ecchymosis patient stable from cardiac standpoint social issues need to be addressed
[2019-03-25 10:57] LABS: TSH (Thyroid Stimulating Horm) 10.17 mcIU/mL (0.34-5.60)
[2019-03-25 10:59] LABS: Free T4 0.88 ng/dL (0.61-1.12)
[2019-03-25] MEDS: Nicotine Patch Removal NOTE PATCH OFF SCH (20:45)
[2019-03-26] MEDS: Albuterol/Ipratropium NEB.SOL* Albuterol 2.5 MG/Ipratropium 0.5 MG 3 ML INH PRN (01:49)
[2019-03-26] MEDS: Levothyroxine TAB* 50 MCG TAB PO SCH (06:01)
[2019-03-26] MEDS: Cephalexin CAP* 250 MG PO SCH ×2 (06:01→08:39)
[2019-03-26 08:27] LABS: Hematocrit 39 % (42-52); Hemoglobin 13.4 g/dL (14.0-18.0); Mean Corpuscular HGB Conc 34 g/dL (31-36); Mean Corpuscular Hemoglobin 35 pg (27-31); Mean Corpuscular Volume 104 fL (80-94); Mean Platelet Volume 7.7 fL (7.4-10.4); Platelet Count 167 10^3/uL (150-450); Red Blood Count 3.79 10^6 /uL (4.18-5.48); Red Cell Distribution Width 14 % (10-15); White Blood Count 6.8 10^3/uL (3.5-10.8)
[2019-03-26] MEDS: Nicotine PATCH 7 MG/24 HR* PATCH TRANSDERM SCH (08:39)
[2019-03-26] MEDS: Thiamine TAB* 100 MG TAB PO SCH (08:39)
[2019-03-26] MEDS: Pantoprazole TAB * 40 MG TAB PO SCH (08:39)
[2019-03-26] MEDS: Folic Acid TAB* 1 MG PO SCH (08:39)
[2019-03-26] MEDS: Multivitamins/Minerals TAB PO SCH (08:39)
[2019-03-26 08:44] LABS: BUN/Creatinine Ratio 15.9 (8-20); Calcium 8.3 mg/dL (8.6-10.3); EGFR African American 152.3 (>60); EGFR Non-African American 125.9 (>60); Magnesium 1.8 mg/dL (1.9-2.7); Phosphorus 2.2 mg/dL (2.5-5.0); Potassium 4.3 mmol/L (3.5-5.0)
[2019-03-26] MEDS ORDERED: Magnesium Sulfate 2 GM IV* 2 GM/50 ML BAG IVPB ONE (09:28)
--- NOTE | 2019-03-26 09:38 | PN ---
Subjective Date of Service: 03/26/19 - Third degree AVB, moderate Interval History: No events last night, patient has been ambulating halls with physical therapist this morning. Currently he is sitting in the chair and offers no complaints. Denies chest pain, sob, dizziness or device site pain. Medications Active Medications: Acetaminophen (Tylenol Tab*) 650 mg PO Q4H PRN PRN Reason: PAIN Albuterol/Ipratropium (Duoneb (Albuterol 2.5 Mg/Ipratropium 0.5 Mg)) 1 neb INH Q4H PRN PRN Reason: SOB/WHEEZING Last Admin: 03/26/19 01:49 Dose: 1 neb Cephalexin HCl (Keflex Cap*) 250 mg PO TID [facility] Stop: 03/29/19 06:59 Last Admin: 03/26/19 08:39 Dose: 250 mg Diazepam (Valium Tab(*)) 0 - 30 mg PO .PER WAM PROTOCOL [facility]; Protocol Folic Acid (Folvite Tab*) 1 mg PO DAILY [facility] Last Admin: 03/26/19 08:39 Dose: 1 mg Magnesium Sulfate (Magnesium Sulfate 2 Gm Iv*) 2 gm in 50 mls @ 50 mls/hr IVPB ONCE ONE Stop: 03/26/19 10:27 Levothyroxine Sodium (Synthroid Tab*) 50 mcg PO DAILY@0600 [facility] Last Admin: 03/26/19 06:01 Dose: 50 mcg Lorazepam (Ativan Inj*) 0 - 3 mg IV PUSH .PER WAM PROTOCOL [facility]; Protocol Miscellaneous (Ativan Pyxis Cantrell) 1 ea N/A .ATIVAN IV CANTRELL PRN PRN Reason: PYXIS CANTRELL Multivitamins/Minerals (Theragran/Minerals Tab*) 1 tab PO DAILY [facility] Last Admin: 03/26/19 08:39 Dose: 1 tab Nicotine (Nicotine Patch 7 Mg/24 Hr*) 1 patch TRANSDERM DAILY [facility] Last Admin: 03/26/19 08:39 Dose: 1 patch Oxycodone/Acetaminophen (Percocet 5/325 Tab*) 1 tab PO Q4H PRN PRN Reason: PAIN Pantoprazole Sodium (Protonix Tab*) 40 mg PO DAILY [facility] Last Admin: 03/26/19 08:39 Dose: 40 mg Pharmacy Profile Note (Nicotine Patch Removal Note*) 1 note PATCH OFF 2100 [facility] Last Admin: 03/25/19 20:45 Dose: 1 note Thiamine HCl (Vitamin B-1 Tab*) 100 mg PO DAILY [facility] Last Admin: 03/26/19 08:39 Dose: 100 mg Objective Vital Signs: Temp Pulse Resp BP Pulse Ox 98.3 F 86 18 141/86 9 03/26/19 05:15 03/26/19 05:15 03/26/19 05:15 03/26/19 05:15 03/26/19 06:00 Oxygen Devices in Use Now: None Appearance: Lying in bed a+o x3, anxious but cooperative with exam. NAD Ears/Nose/Mouth/Throat: NL Teeth, Lips, Gums, Mucous Membranes Moist Neck: NL Appearance and Movements; NL JVP, Trachea Midline Respiratory: - - Diminished throughout, no evidence of adventicious breath sounds Cardiovascular: No Edema, - - Normal S1, S2 RRR, Grade 2/6 early systolic AV murmur. no gallop or rub. Skin: - - + bruising noted on bilateral upper extremities, left anterior chest device site intact, scant oozing noted from staple site, no evidenc of hematoma. non tender to palpation. edges well appoximated with rick in place Neurological: Alert and Oriented x 3 Lines/Tubes/Other Access: Clean, Dry and Intact Peripheral IV Laboratory Results: 03/26/19 07:56 03/26/19 07:56 INR (Anticoag Therapy) 1.22 (0.82-1.09) H 03/21/19 14:30 APTT 29.7 seconds (26.0-38.0) 03/21/19 14:30 Total Bilirubin 0.40 mg/dL (0.2-1.0) 03/24/19 05:12 Direct Bilirubin 0.10 mg/dL (0.03-0.18) 03/24/19 05:12 Indirect Bilirubin 0.3 mg/dL (0.3-1.0) 03/24/19 05:12 AST 17 U/L (13-39) 03/24/19 05:12 ALT 9 U/L (7-52) 03/24/19 05:12 Alkaline Phosphatase 63 U/L (34-104) 03/24/19 05:12 Total Protein 6.4 g/dL (6.4-8.9) 03/24/19 05:12 Albumin 3.2 g/dL (3.2-5.2) 03/24/19 05:12 Globulin 3.2 g/dL (2-4) 03/24/19 05:12 Albumin/Globulin Ratio 1.0 (1-3) 03/24/19 05:12 Triglycerides 88 mg/dL 03/21/19 14:30 Cholesterol 109 mg/dL 03/21/19 14:30 LDL Cholesterol 39 mg/dL 03/21/19 14:30 HDL Cholesterol 52.5 mg/dL 03/21/19 14:30 TSH 10.17 mcIU/mL (0.34-5.60) H 03/25/19 09:45 03/21/19 03/21/19 03/22/19 14:30 20:20 01:00 Troponin I 0.07 H* 0.08 H* 0.07 H* 03/22/19 04:55 Troponin I 0.06 H* Laboratory Results - last 24 hr 03/25/19 03/26/19 03/26/19 09:45 07:56 07:56 WBC 6.8 RBC 3.79 L Hgb 13.4 L Hct 39 L MCV 104 H MCH 35 H MCHC 34 RDW 14 Plt Count 167 MPV 7.7 Sodium 130 L Potassium 4.3 Chloride 94 L Carbon Dioxide 33 H Anion Gap 3 BUN 10 Creatinine 0.63 L Est GFR ( Amer) 152.3 Est GFR (Non-Af Amer) 125.9 BUN/Creatinine Ratio 15.9 Glucose 88 Calcium 8.3 L Phosphorus 2.2 L Magnesium 1.8 L TSH 10.17 H Free T4 0.88 Free T3 2.00 L Diagnostic Imaging: *[facility]* [facility] [address] [place] [address] Fax #: [phone] Transthoracic Echocardiogram Patient: Anjum Chapman : 1950 Study Date: 03/21/2019 Age: 68 Gender: M HR: 40 bpm Height: 62 in /157.5 cm BSA: 1.51 m^2 Weight: 114.8 lb /52.2 kg BMI: 21 kg/m^2 *Administrative Tech: Mihaela Fernandez [facility] *Referring Physician: * Isha Hui *Reading Physician: * Paola Garcia MD Indications: Abnormal EKG. History: Chronic obstructive pulmonary disease. Risk factors: Hypertension. Hiatal hernia, seizures. Conclusions Summary: 1. Left ventricle: The cavity size is mildly reduced. Wall thickness is moderately increased. Systolic function is normal. The estimated ejection fraction is 60-65%. Wall motion is normal; there are no regional wall motion abnormalities. There is no consistent Doppler evidence of clinically significant diastolic dysfunction. 2. Right ventricle: Systolic pressure cannot be accurately determined, but appears to be increased. 3. Ventricular septum: There is abnormal interventricular septal wall motion consistent with an RV pacemaker. 4. Left atrium: The atrium is severely dilated. 5. Mitral valve: The findings are consistent with mild stenosis. There is mild to moderate regurgitation. The peak E-wave velocity is 1.54 m/sec. The pressure half-time is 118 ms. The This report is only to be considered final once signed by the Provider(s) as displayed in the "<Electronically Signed by >" field (s). Absence of a signature indicates the report is in a draft status and still needs to be finalized. In the event this document was created by someone other than the signing Provider, the individual initiating the document will be listed in the "Entered by:" or "Dictated by:" jeronimo. EKG Data: 03/25/2019 ECG; Sinus rhythm rate 72 [employer]. Telemetry reviewed intermittently Paced rhythm rate 70's Assessment/Plan #1 s/p unresponsive with evidence of third degree AVB. Echo 03/21/2019 normal wall motion. Troponin peaked at .08 on 03/21/2019. He is s/p DC PPM implant with Dr. Carrizales 03/24/2019. Device check today reviewed; [employer] 16%, AP 1.3%. RV pacing threshold 0.4ms, Atrial pacing threshold 0.4ms. 03/25/2019 CXR negative for pneumothorax. He was started on Keflex 250mg PO TID which he will need for a total of three days. No evidence of pocket hematoma. #2 s/p fall 03/24/2019. Pt/OT evaluated patient there was concern for ETOH withdraw. No recurrent falls since 03/24/2019. #3 h/o Hypothyroidism; TSH 21 on 03/21/2019. Levothyroxine was reduced to 50mcg/ day. TSH improved to 10 on yesterday labs. #4 h/o Alcoholism; per social work note from 03/24/2019 patient declined rehabilitation services. Daughter was given resource list. On multivitamin and thiamine. Mag to be replaced today #5 Moderate ; Peak gradient 27, mean 14 consistent with moderate . He is asymptomatic there was concern for being more severe than what was reports by [facility]TE thus ELLIOTT was ordered. Will confirm with Dr. Wellington as to whether of not we wish to pursue with ELLIOTT versus close out patient follow up. #6 Disposition pending course. Patient DNR. Declined drug and alcohol rehabilitation. Will speak with Dr. Wellington about cancelling ELLIOTT given AV gradients consistent with moderate and arranging for close follow up with Dr. Garcia. Attending: Elizabeth Wellington
[2019-03-26 14:25] VITALS: BP 168/81
--- NOTE | 2019-03-27 18:44 | DS ---
CC: Dr. Carrizales; Dr. Hawkins * DISCHARGE SUMMARY: DATE OF ADMISSION: 03/21/19 DATE OF DISCHARGE: 03/26/19 PRIMARY DIAGNOSIS: Third-degree heart block with pacemaker placement. SECONDARY DIAGNOSES: 1. Chronic obstructive pulmonary disease. 2. Hypertension. 3. Alcoholism. 4. Hypothyroidism. 5. History of seizure in the setting of hyponatremia. 6. Moderate aortic stenosis. MEDICATIONS ON DISCHARGE: 1. Amlodipine 10 mg p.o. daily. 2. Aspirin 325 mg p.o. daily. 3. Folic acid 1 mg p.o. q.a.m. 4. Magnesium oxide 400 mg p.o. b.i.d. 5. Toprol-XL 50 mg p.o. daily. 6. Omeprazole 20 mg p.o. daily. 7. Acetaminophen as needed. 8. Keflex 250 mg p.o. t.i.d. for post pacemaker prophylaxis. 9. Levothyroxine 50 mcg p.o. q.a.m. 10. Nicotine patch 7 mg transdermal topically daily. 11. Thiamine 100 mg p.o. daily. PROCEDURE: Permanent pacemaker placement with Dr. Carrizales on 03/24/19. COMPLICATIONS: None. HOSPITAL COURSE: A 68-year-old man with the above medical history was brought to the emergency department after being found unconscious outside of a bar. Further investigations proved that he had not been in the bar, but had collapsed on the way in. Heart rate of 40 was obtained in the field. Initial investigation showed normal white count, hemoglobin 12.9. Toxicology showed only positive benzodiazepine. Arterial blood gas 7.25, pCO2 of 46, and pO2 of 190. He had moderate hyponatremia at 123 sodium, which corrected to 130 with hydration. Initial lactic acid was 9.5, which improved to 1.5 on recheck. Creatinine remained stable throughout the hospital stay. His troponin was elevated at 0.07 on admission, but boo to 0.08 and fell to 0.06 on repeat checks. His TSH was checked on 2 occasions with a reading of 21.3 initially and 10.17 on 03/25/19. The patient was admitted to the ICU due to being unresponsive and bradycardia. The patient was managed by Dr. Mancini in the ICU, where he had been intubated and managed on propofol. Transvenous pacemaker was placed and he proved to be pacemaker dependent. The patient was extubated on day 2. Chest x-ray initially showed no known focal infiltrates. The patient was seen in consultation by Dr. Garcia on 03/21/19. He reviewed the concerns of ST-elevation MD, which were evaluated by Dr. Patel and felt not to be an MD. Dr. Patel did place the temporary pacemaker wire in the medical laboratory technicians. Dr. Garcia assisted with management and arranged the work with Dr. Carrizales to place a permanent pacemaker. The patient was also seen in consultation by Dr. Dillon of neurology regarding unresponsiveness and left-sided weakness. He noted the hypothyroidism was undertreated because of patient noncompliance. He reviewed brain CT taken on admission that showed no evidence of intracranial hemorrhage or infract. Cervical spine CT also showed degenerative changes with subluxations at multiple levels, but no fracture. CT angiogram of the head and neck showed no occlusive disease or significant stenosis. On the day prior to discharge, the patient did have a fall in his room on the medical floor, which was not witnessed. He bruised his left elbow and was left with a large soft hematoma or inflamed bursa in that area. He did not hit his head and had no change in his mental status. Later on, he was evaluated by physical therapy and he was ambulating with a cane or gait belt on the day before discharge and on the day of discharge. His physical exam, besides the contusion on the left elbow, was notable for left anterior chest pacemaker site with rick and bandage present. His left arm is in an immobilizing brace. His vital signs showed blood pressure of 147/ 90 up to 160/81. His home blood pressure medicines were restarted upon discharge. DISPOSITION: To home where he lives with his daughter. DIET: Low salt. He is to refrain from alcohol abuse and he declined referral to alcohol treatment and rehab. ACTIVITY: Should be do not raise left arm for 1 week and until he sees cardiology for followup for suture removal and other pacemaker followup. Activity, otherwise, is as tolerated. Walk with walker and assist. STATUS: Inpatient. CONDITION: Stable. He should see primary care within [address] Carrizales within 2 weeks. I spent more than 35 minutes with the patient on the day of discharge and on arranging followup care and completing necessary documentation. [id number]/[facility] #: [id number] [facility]
== END 2019-03-26 14:18 | disposition home health service (06) | DRG 242 ==
LOC: ED 14:21 → ICU 16:53 → MEDTELE 03-24 10:39
PROVIDERS: ADMIT Internal Medicine Cardiovascular Disease; ATTEND Internal Medicine
PROC: 5A1223Z Performance of Cardiac Pacing, Continuous (ICD-10-PCS; 2019-03-21)
PROC: 5A1935Z Respiratory Ventilation, Less than 24 Consecutive Hours (ICD-10-PCS; 2019-03-21)
PROC: 0BH17EZ Insertion of Endotracheal Airway into Trachea, Via Natural or Artificial Opening (ICD-10-PCS; 2019-03-21)
PROC: 02HK3JZ Insertion of Pacemaker Lead into Right Ventricle, Percutaneous Approach (ICD-10-PCS; 2019-03-24)
PROC: 02H63JZ Insertion of Pacemaker Lead into Right Atrium, Percutaneous Approach (ICD-10-PCS; 2019-03-24)
PROC: 0JH606Z Insertion of Pacemaker, Dual Chamber into Chest Subcutaneous Tissue and Fascia, Open Approach (ICD-10-PCS; principal; 2019-03-24 09:30)
DX: I44.2 Atrioventricular block, complete (principal); J96.01 Acute respiratory failure with hypoxia; J96.02 Acute respiratory failure with hypercapnia; R57.0 Cardiogenic shock; G93.40 Encephalopathy, unspecified; E87.2 Acidosis; E87.1 Hypo-osmolality and hyponatremia; G81.94 Hemiplegia, unspecified affecting left nondominant side; J44.9 Chronic obstructive pulmonary disease, unspecified; I10 Essential (primary) hypertension; E03.9 Hypothyroidism, unspecified; F17.210 Nicotine dependence, cigarettes, uncomplicated; S00.83XA Contusion of other part of head, initial encounter; X58.XXXA Exposure to other specified factors, initial encounter; K21.9 Gastro-esophageal reflux disease without esophagitis; K44.9 Diaphragmatic hernia without obstruction or gangrene; H26.9 Unspecified cataract; M19.90 Unspecified osteoarthritis, unspecified site; M41.9 Scoliosis, unspecified; F41.9 Anxiety disorder, unspecified; F32.9 Major depressive disorder, single episode, unspecified; E83.42 Hypomagnesemia; S50.02XA Contusion of left elbow, initial encounter; I35.0 Nonrheumatic aortic (valve) stenosis; F10.20 Alcohol dependence, uncomplicated; I95.9 Hypotension, unspecified; Z91.14 Patient's other noncompliance with medication regimen; Z82.49 Family history of ischemic heart disease and other diseases of the circulatory system; Z83.3 Family history of diabetes mellitus; Y92.410 Unspecified street and highway as the place of occurrence of the external cause; Z85.51 Personal history of malignant neoplasm of bladder; Z79.82 Long term (current) use of aspirin
CPT/HCPCS: 33208; 33210; 36415; 70450; 70496; 70498; 71045; 71046; 72125; 80048; 80053; 80061; 80076; 80307; 80320; 81003; 81015; 82140; 82533; 82550; 82803; 83605; 83735; 84100; 84439; 84443; 84481; 84484; 85025; 85027; 85610; 85730; 87086; 87641; 90715; 93005; 93306; 94003; 94640; 99156; 99157; 99285; 99406; A9270-GY; C1785; C1892; C1898; G0480; G8978-GP-CJ; G8979-GP-CI; G8987-GO-CJ; G8988-GO-CI; J0330; J0690; J1644; J1720; J1940; J1953; J2060; J2250; J2310; J2704; J3010; J3411; J3475; J3480; Q9967

== ENCOUNTER 2019-03-27 10:43 | Inpatient (IN) | payer MEDICARE ==
[2019-03-27] MEDS ORDERED: Nitro 2% OINT* (Nitroglycerin) 1 INCH/PAK PAK TOPICAL ONE (11:02)
[2019-03-27] MEDS ORDERED: Furosemide IV* 10 MG/ML VIAL (40 MG) IV ONE (11:03)
--- NOTE | 2019-03-27 11:04 | ED ---
Shortness of Breath - HPI Summary HPI Summary: The patient is a 68 y/o M presenting to [facility] accompanied by daughter with a chief complaint of sudden onset worsening of SOB this morning. He reports that he woke up this morning with some SOB likely secondary to hx of COPD, and his daughter notes that he appeared to be alright at this time. Then, the patient went to get up to the bathroom when he suddenly had increased dyspnea. He denies CP and any other pain except for the site at which he had a pacemaker placed recently s/p IN with discharge from the hospital yesterday. He states that he was feeling improved yesterday after discharge. His daughter notes that he was unable to cough up phlegm this morning, which he usually does every day. He reports eating hamburgers for dinner last night. Hx of thyroid disease, CAD, HLD, HTN, pacemaker, COPD, GERD. FHx of HTN, DM. Former smoker, daily EtOH, no substance use. - History of Current Complaint Chief Complaint: EDShortnessOfBreath Time Seen by Provider: 03/27/19 10:48 Hx Obtained From: Patient, Family/Stem Dryer Maintainer - daughter Onset/Duration: Sudden Onset, Lasting Hours - this morning, Still Present Timing: Constant Current Severity: Moderate Dyspnea At: Exertion Aggravating Factors: Nothing Alleviating Factors: Nothing - Allergy/Home Medications Allergies/Adverse Reactions: Allergies Allergy/AdvReac Type Severity Reaction Status Date / Time No Known Allergies Allergy Verified 03/27/19 13:32 PMH/Surg Hx/FS Hx/Imm Hx Endocrine/Hematology History: Reports: Hx Thyroid Disease Cardiovascular History: Reports: Hx Coronary Artery Disease, Hx Hypercholesterolemia, Hx Hypertension, Hx Pacemaker/ICD - 03/24/2019 Respiratory History: Reports: Hx Chronic Obstructive Pulmonary Disease (COPD) GI History: Reports: Hx Gastroesophageal Reflux Disease - ON MEDICATION, Hx Hiatal Hernia, Hx Ulcer History: Reports: Other Problems/Disorders - bladder ca Musculoskeletal History: Reports: Hx Arthritis, Hx Back Problems, Hx Scoliosis Sensory History: Reports: Hx Cataracts - PRESENTLY, Hx Contacts or Glasses - GLASSES Denies: Hx Hearing Aid Opthamlomology History: Reports: Hx Cataracts - PRESENTLY, Hx Contacts or Glasses - GLASSES Neurological History: Reports: Hx Seizures Psychiatric History: Reports: Hx Anxiety, Hx Depression - Cancer History Cancer Type, Location and Year: bladder - Surgical History Surgery Procedure, Year, and Place: bladder surgery, pacemaker Hx Anesthesia Reactions: No - Immunization History Date of Tetanus Vaccine: unknown Date of Influenza Vaccine: no Infectious Disease History: No Infectious Disease History: Denies: Traveled Outside the [place] in Last 30 Days - Family History Known Family History: Positive: Hypertension, Diabetes - mother, grandmother - Social History Alcohol Use: Daily Alcohol Amount: 4-6 a day Substance Use Type: Reports: None, Prescribed Substance Use Comment - Amount & Last Used: 03/28/15 Hx Tobacco Use: Yes Smoking Status (MU): Former Smoker Type: Cigarettes Amount Used/How Often: 1 PPD Have You Smoked in the Last Year: Yes Review of Systems Negative: Chest Pain Positive: Shortness Of Breath All Other Systems Reviewed And Are Negative: Yes Physical Exam - Summary Physical Exam Summary: Appearance: Elderly, frail appearing, lying in the stretcher in mild distress, tachypnea noted Skin: Warm, dry, no obvious rash Eyes: sclera anicteric, no conjunctival pallor ENT: mucous membranes moist, pharynx appears normal Neck: Supple, nontender, marked JVD Respiratory: Bilateral crackles, mild respiratory distress Cardiovascular: Normal S1, S2. No murmurs. Normal distal pulses in tibial and radial bilaterally. Abdomen: Soft, nontender, normal active bowel sounds present Musculoskeletal: Strength/ROM Intact, mild pitting edema bilaterally Neurological: A&Ox3, awake and alert, mentation is normal, speech is fluent and appropriate Psychiatric: affect is normal, does not appear anxious or depressed Triage Information Reviewed: Yes Vital Signs On Initial Exam: Initial Vitals Temp Pulse Resp BP Pulse Ox 98.5 F 72 24 154/98 76 03/27/19 10:45 03/27/19 10:45 03/27/19 10:45 03/27/19 10:45 03/27/19 10:45 Vital Signs Reviewed: Yes Diagnostics - Vital Signs Vital Signs Temp Pulse Resp BP Pulse Ox 03/27/19 10:45 98.5 F 72 24 154/98 76 - Laboratory Result Diagrams: 03/28/19 06:53 03/28/19 10:18 Lab Statement: Any lab studies that have been ordered have been reviewed, and results considered in the medical decision making process. - Radiology CXR Radiology Interpretation Completed By: Radiologist Summary of Radiographic Findings: Impression: Likely progressive pneumonia in the right lung base with increasing right pleural effusion. ED physician has reviewed this radiology report. - EKG 1114 Cardiac Rate: Other Rate - Fast sinus arrhythmia at 101 BPM EKG Comparison: No Significant Change - Similar to EKG taken on 03/25/2019. Summary of EKG Findings: Fast sinus arrhythmia. LBBB. Re-Evaluation - Re-Evaluation First Eval Re-Evaluation Time: 12:25 Comment: I discussed admission with the patient. He agrees with this plan. Course/Dx - Course Course Of Treatment: The patient is a 68 y/o M with hx of COPD presenting to [facility] accompanied by daughter with a chief complaint of sudden onset worsening of SOB this morning with dyspnea at exertion while attempting to get up to the bathroom. He denies CP. Recently had pacemaker placed s/p IN with discharge from the hospital yesterday. Hx of thyroid disease, CAD, HLD, HTN, pacemaker, COPD, GERD. FHx of HTN, DM. Former smoker. Upon physical exam, the patient appears to be elderly, frail appearing, lying in the stretcher in mild distress with noted tachypnea, marked JVD, bilateral crackles, and mild pitting edema bilaterally. Blood work reveals RBCs of 3.72, Hgb of 13.3, Hct of 39, MCV of 105 , MCH of 36, abs neuts of 8.6, abs lymphs of 0.6, sodium of 127, chloride of 87 , carbon dioxide of 35, creatinine of 0.50, BUN/Creatinine of 26.0, glucose of 145, lactic acid of 2.1, calcium of 8.3, and troponin of 1.07. EKG reveals fast sinus arrhythmia at 101 bpm and LBBB. My initial impression was that the patient was suffering from acute pulmonary edema due to presence of JVD, crackles, peripheral edema, and fairly abrupt onset. While this may indeed be the case, further information indicates that the patient had a transthoracic echocardiogram during his hospitalization last week did not show any evidence of systolic or diastolic dysfunction, and also his chest x-ray today shows a marked increase in the right lower lung infiltrate with some associated effusion. So this patient certainly could be developing a healthcare associated pneumonia and given that he was fairly recently on a ventilator intubated he is certainly at risk for increased mortality and possible multidrug resistant bacteria. I will be contacting the hospitalist and in the interim and ordered initial antibiotics and steroids and beta agonist that by nebulization. This is in addition to Lasix and topical nitrates I ordered after my initial evaluation. He will need to be monitored carefully for signs of sepsis and/or volume depletion. He is accepted for admission by Dr. Frazier at 1220. Patient agrees with this plan. He is diagnosed with PNA. - Diagnoses Provider Diagnoses: PNA (pneumonia), CHF (congestive heart failure), Aortic stenosis - Physician Notifications Discussed Care of Patient With: Kisha Frazier - hospitalist Time Discussed With Above Provider: 12:20 Instructed by Provider To: Other - I discussed the patient's case with Dr. Frazier, and she accepts the patient for admission. Discharge - Sign-Out/Discharge Documenting (check all that apply): Patient Departure - Patient is accepted for admission by Dr. Frazier. Patient Received Moderate/Deep Sedation with Procedure: No - Discharge Plan Condition: Guarded Disposition: ADMITTED TO [facility] - Billing Disposition and Condition Condition: GUARDED Disposition: Admitted to [facility] - Attestation Statements Document Initiated by Laura: Yes Documenting Scribe: Yuly Rodriguez Provider For Whom Laura is Documenting (Include Credential): Dr. Mohamud Taveras MD Scribe Attestation: I, geno Robinsibed for Dr. Mohamud Taveras MD on 03/28/19 at 1216. Scribe Documentation Reviewed: Yes Provider Attestation: The documentation as recorded by the Yuly braga accurately reflects the service I personally performed and the decisions made by me, Dr. Mohamud Taveras MD Status of Scribe Document: Viewed
--- OUTSIDE RECORDS SUMMARY | 2019-03-27 11:05 | XMS REPORT | Continuity of Care Document ---
:1950 External Reference #:[id number] Author Name Felisa Villanueva Care Team Providers Name Role Phone Golden Leach MD Primary Care Physician Unavailable Payers Date Identification Numbers Payment Provider Subscriber Effective: 2014 Policy Number: [id number] Medicare Blue Ppo [employer] Number: [id number] [address] [address] PayID: [id number] [place] [address] Advance Directives Type Date Description Status Comment Other Directive 07/24/2017 Health Care Proxy Current and Verified Problems Active Problems Provider Date Alcohol withdrawal-induced convulsion Golden Leach M.D.,FACP Onset: Note: once Hyponatremia Kunal Clark M.D. Onset: 04/07/2015 Hypomagnesemia Kunal Clark M.D. Onset: 04/07/2015 Gastroesophageal reflux disease Kunal Clark M.D. Onset: 04/07/2015 Essential hypertension Kunal Clark M.D. Onset: 04/07/2015 Alcoholism Kunal Clark M.D. Onset: 04/07/2015 Smoker Duarte Jackson NP Onset: 12/04/2016 History of malignant neoplasm of bladder Duarte Jackson NP Onset: 12/05/2016 Note: s/p surgery & BCG 2005 Hypothyroidism Duarte Jackson NP Onset: 12/05/2016 Chronic pain Duarte Jackson NP Onset: 12/05/2016 Note: low back and hip Chronic obstructive lung disease Golden Leach M.D.,FACP Onset: 2016 Inactive Problems Seizure Kunal Clark M.D. Onset: 04/07/2015 Inactive: 01/22/2018 Family History Date Family Member(s) Observation Comments Father Throat cancer : (age 79 Father due to Throat Years) cancer : (age 64 Mother due to Heart Years) attack Mother Diabetes Onset: (08/04/2016) Children 6 Onset: (08/04/2016) Siblings 1 Brother, , heart failure Siblings 2 First Brother due to CHF () Social History Type Date Description Comments Sex Unknown Marital Status Lives With 08/04/2016 Daughter Occupation Retired ETOH Use 01/22/2018 Consumes 1 six pack of beer per day Recreational Drug Use Denies Drug Use Tobacco Use Start: Unknown Heavy tobacco smoker (more than 1 PPD 10 cigarettes/day) Smoking Status Reviewed: 01/22/18 Heavy tobacco smoker (more than 1 PPD 10 cigarettes/day) Exercise Type/Frequency Does not exercise Allergies, Adverse Reactions, Alerts Description No Known Drug Allergies Medications Active Medications SIG Qnty Indications Ordering Date Provider Magnesium-Oxide Take One Tablet 60tabs Golden Kaur 10/23/2017 400mg By Mouth Twice A Salena Leach,AARONP Tablet Day Metoprolol Succinate 1 by mouth every 90tabs I10 Golden Kaur 07/24/2017 ER day Salena Leach,AARONP 50mg Tablets ER 24HR Levothyroxine Sodium Take 1/2 Tablet 10tabs E03.9 Golden Kaur 07/24/2017 By Mouth Every Salena Leach,AARONP 125mcg Tablets Day. Labs Need To Be Completed ADELE E03.8 Aspirin Ec 1 tab daily I10 Unknown 325mg Tablets Omeprazole take one capsule by 90caps K21.9 Golden Leach, 20mg Capsules mouth every day M.D.,FACP Norvasc take one tablet by 90tabs I10 Golden Leach, 10mg Tablets mouth every day M.D.,FACP Folic Acid Take One Tablet By 30tabs F10.20 Golden Leach, 1mg Tablets Mouth Every Day M.D.,FACP History Medications Metoprolol Succinate Take One Tablet 30tabs I10 Golden Kaur 02/18/2016 - ER By Mouth Every Salena Leach,FACP 07/24/2017 50mg Tablets ER 24HR Day Magnesium Oxide take one tablet 60tabs E83.42 Lourdes Mohan, 2015 - by mouth twice [employer] 01/22/2018 400(241.3mg) mg a day Tablets Levothyroxine Sodium Take 2 & 1/2 75tabs E03.9 Golden Kaur 11/29/2015 - Tablets By Salena Leach,[facility] 07/24/2017 25mcg Tablets Mouth Once Daily On An Empty Stomach E03.8 Levothyroxine Sodium take one tablet 30tabs 244.9 Kunal Clark, 2015 - by mouth daily M.D. 11/29/2015 50mcg Tablets with empty stomach Levothyroxine Sodium 1 by mouth every 30tabs 244.9 Kunal Clark, 2015 - day with empty M.D. 11/03/2015 75mcg Tablets stomack Levothyroxine Sodium take one tablet 30tabs 244.9 Kunal Clark, 2014 - by mouth daily M.D. 09/30/2015 50mcg Tablets with empty stomach Spiriva Handihaler 1 puff by mouth 60caps J44.9 Duarte Jackson, 07/22/2015 - 18mcg daily [employer] 11/23/2016 Capsules Combivent Respimat 1 puff four QS J44.9 Duarte Jackson, 07/22/2015 - times per day [employer] 08/04/2016 20-100mcg/Act Aerosol Levothyroxine Sodium 1 tablet by 30tabs 244.9 Kunal Clark, 05/11/2015 - mouth daily with M.D. 07/22/2015 25mcg Tablets empty stomach Magnesium Oxide 1 cap by mouth 10caps E83.42 Kunal Clark, 05/11/2015 - 400mg every day M.D. 07/21/2015 Capsules Thiamine HCL 1 by mouth every 30tabs Kunal Clark, - 100mg day M.D. 02/01/2016 Tablets Metoprolol Tartrate 1 by mouth twice 60tabs I10 Golden Kaur - 25mg a day [facility] Leach,[facility] 02/18/2016 Tablets Sodium Chloride 1 by mouth three 30tabs Kunal Clark, - 1gm times daily M.D. 07/22/2015 Tablets Immunizations CPT Code Status Date Vaccine Lot # [id number] Given 01/22/2018 Pneumococcal Conjugate Vaccine 13 Valent For [id number] Intramuscular Use 09287 Given 08/25/2008 Pneumonia Vaccine [id number] Given 08/25/2008 Pneumonia Vaccine [id number] Given 08/25/2008 Tdap - Tetanus/Diptheria/Acellular Pertussis Vital Signs Date Vital Result Comment 01/22/2018 10:14am Height 65.5 inches 5'5.50" Weight 125.00 lb pt declined to take off boots Heart Rate 80 /min BP Systolic Sitting 150 mmHg BP Diastolic Sitting 70 mmHg BP Systolic Recheck 138 mmHg BP Diastolic Recheck 68 mmHg Body Temperature 97.2 F O2 % BldC Oximetry 95 % BMI (Body Mass Index) 20.5 kg/m2 08/08/2017 9:13am Height 65.5 inches 5'5.50" Weight 115.00 lb Heart Rate 82 /min BP Systolic 170 mmHg BP Diastolic 100 mmHg Body Temperature 97.5 F O2 % BldC Oximetry 95 % BMI (Body Mass Index) 18.8 kg/m2 07/24/2017 10:06am Weight 119.00 lb Heart Rate 81 /min BP Systolic Sitting 150 mmHg BP Diastolic Sitting 76 mmHg Body Temperature 97.6 F O2 % BldC Oximetry 96 % 12/04/2016 3:05pm Height 66.5 inches 5'6.50" Weight 118.00 lb Heart Rate 83 /min BP Systolic Sitting 140 mmHg BP Diastolic Sitting 88 mmHg Body Temperature 97.4 F O2 % BldC Oximetry 98 % BMI (Body Mass Index) 18.8 kg/m2 11/23/2016 3:49pm Weight 120.25 lb Heart Rate 77 /min BP Systolic Sitting 160 mmHg BP Diastolic Sitting 80 mmHg Body Temperature 97.5 F O2 % BldC Oximetry 97 % 08/04/2016 8:19am Height 67 inches 5'7" Weight 119.00 lb Heart Rate 82 /min BP Systolic Sitting 150 mmHg BP Diastolic Sitting 86 mmHg Body Temperature 97.5 F O2 % BldC Oximetry 98 % BMI (Body Mass Index) 18.6 kg/m2 05/24/2016 1:44pm Height 67 inches 5'7" Weight 120.00 lb Heart Rate 74 /min BP Systolic Sitting 160 mmHg BP Diastolic Sitting 86 mmHg Body Temperature 98.1 F O2 % BldC Oximetry 97 % BMI (Body Mass Index) 18.8 kg/m2 02/18/2016 2:39pm Weight 130.00 lb Heart Rate 90 /min BP Systolic 148 mmHg BP Diastolic 90 mmHg BP Systolic Sitting 152 mmHg BP Diastolic Sitting 88 mmHg Body Temperature 98.3 F O2 % BldC Oximetry 98 % 02/01/2016 1:26pm Weight 131.00 lb Heart Rate 80 /min BP Systolic Sitting 164 mmHg BP Diastolic Sitting 88 mmHg Body Temperature 97.8 F O2 % BldC Oximetry 98 % 11/29/2015 3:29pm Height 67 inches 5'7" Weight 140.00 lb Heart Rate 90 /min BP Systolic Sitting 162 mmHg BP Diastolic Sitting 78 mmHg Body Temperature 97.4 F O2 % BldC Oximetry 98 % BMI (Body Mass Index) 21.9 kg/m2 09/30/2015 10:55am Height 67 inches 5'7" Weight 137.00 lb Heart Rate 78 /min BP Systolic Sitting 128 mmHg BP Diastolic Sitting 84 mmHg Body Temperature 98.1 F O2 % BldC Oximetry 97 % BMI (Body Mass Index) 21.5 kg/m2 08/05/2015 10:38am Height 67 inches 5'7" Weight 136.12 lb Heart Rate 79 /min BP Systolic Sitting 138 mmHg BP Diastolic Sitting 76 mmHg Body Temperature 97.9 F O2 % BldC Oximetry 98 % BMI (Body Mass Index) 21.3 kg/m2 07/22/2015 9:59am Height 67 inches 5'7" Weight 130.00 lb Heart Rate 84 /min BP Systolic Sitting 170 mmHg BP Diastolic Sitting 90 mmHg Body Temperature 97.5 F O2 % BldC Oximetry 98 % BMI (Body Mass Index) 20.4 kg/m2 05/11/2015 3:55pm Height 67 inches 5'7" Weight 128.50 lb Heart Rate 86 /min BP Systolic Sitting 148 mmHg BP Diastolic Sitting 88 mmHg O2 % BldC Oximetry 98 % BMI (Body Mass Index) 20.1 kg/m2 04/07/2015 2:44pm Height 67 inches 5'7" Weight 124.00 lb Heart Rate 66 /min BP Systolic Sitting 112 mmHg BP Diastolic Sitting 62 mmHg Body Temperature 97.8 F O2 % BldC Oximetry 96 % BMI (Body Mass Index) 19.4 kg/m2 Results Test Date Facility Test Result H/L Range Note Basic Metabolic 08/10/2017 [facility] Sodium 122 mmol/L Low 133-145 Panel [address] [place] [address] [phone] Potassium 4.5 mmol/L N 3.5-5.0 Chloride 84 mmol/L Low 101-111 Co2 Carbon Dioxide 30 mmol/L N 22-32 Anion Gap 8 mmol/L N 2-11 Glucose 99 mg/dL N 70-100 Blood Urea Nitrogen 9 mg/dL N 6-24 Creatinine 0.59 mg/dL Low 0.67-1.17 BUN/Creatinine Ratio 15.3 N 8-20 Calcium 9.2 mg/dL N 8.6-10.3 Egfr Non- 136.2 >60 Egfr 175.2 >60 1 Laboratory test 07/23/2017 [facility] TSH (Thyroid 5.45 N 0.34 -5.[address] Stim Horm) mcIU/[place] [address] [phone] Basic Metabolic 07/23/2017 [facility] Sodium 123 mmol/L Low 133-[address] [place] [address] [phone] Potassium 4.8 mmol/L N 3.5-5.0 Chloride 88 mmol/L Low 101-111 Co2 Carbon Dioxide 29 mmol/L N 22-32 Anion Gap 6 mmol/L N 2-11 Glucose 86 mg/dL N 70-100 Blood Urea Nitrogen 12 mg/dL N 6-24 Creatinine 0.62 mg/dL Low 0.67-1.17 BUN/Creatinine Ratio 19.4 N 8-20 Calcium 9.6 mg/dL N 8.6-10.3 Egfr Non- 128.6 >60 Egfr 165.4 >60 2 Basic Metabolic 12/01/2016 [facility] Sodium 120 mmol/L Low 133-145 Panel [address] [place] [address] [phone] Potassium 4.4 mmol/L N 3.5-5.0 Chloride 84 mmol/L Low 101-111 Co2 Carbon Dioxide 30 mmol/L N 22-32 Anion Gap 6 mmol/L N 2-11 Glucose 148 mg/dL High 70-100 Blood Urea Nitrogen 9 mg/dL N 6-24 Creatinine 0.61 mg/dL Low 0.67-1.17 BUN/Creatinine Ratio 14.8 N 8-20 Calcium 9.2 mg/dL N 8.6-10.3 Egfr Non- 131.5 N >60 Egfr 169.1 N >60 3 Laboratory test 08/03/2016 [facility] TSH (Thyroid 2.82 mcIU/mL N 0.34-5.[address] Stim Horm) [place] [address] [phone] Hepatitis C Antibody Nonreactive N Nonreactive Laboratory test 05/12/2016 [facility] Magnesium 1.9 mg/dL N 1.9-2.7 4 finding [address] [place] [address] [phone] Basic Metabolic 05/12/2016 [facility] Sodium 124 mmol/L Low 133-145 Panel [address] [place] [address] [phone] Potassium 4.3 mmol/L N 3.5-5.0 Chloride 88 mmol/L Low 101-111 Co2 Carbon Dioxide 30 mmol/L N 22-32 Anion Gap 6 mmol/L N 2-11 Glucose 93 mg/dL N 70-100 Blood Urea Nitrogen 7 mg/dL N 6-24 Creatinine 0.53 mg/dL Low 0.67-1.17 BUN/Creatinine Ratio 13.2 N 8-20 Calcium 9.3 mg/dL N 8.6-10.3 Egfr Non- 154.6 N >60 Egfr 198.8 N >60 5 Laboratory test finding 02/18/2016 [facility] Acth 53 pg/mL N 6 [address] [place] [address] [phone] Lipid Profile 02/18/2016 [facility] Triglycerides 50 mg/dL N 7 (Trig/Chol/HDL) [address] [place] [address] [phone] Cholesterol 165 mg/dL N 8 HDL Cholesterol 52.1 mg/dL N 9 LDL Cholesterol 103 mg/dL N 10 Laboratory test 02/18/2016 [facility] Osmolality 241 mOsm/kg N 150-1150 [address] [place] [address] [phone] Sodium Random Urine 31 mmol/L N 12 Cortisol 14.52 ?g/dL N 13 Basic Metabolic 02/14/2016 [facility] Sodium 124 mmol/L Low 133-145 Panel [address] [place] [address] [phone] Potassium 4.1 mmol/L N 3.5-5.0 Chloride 91 mmol/L Low 101-111 Co2 Carbon Dioxide 28 mmol/L N 22-32 Anion Gap 5 mmol/L N 2-11 Glucose 104 mg/dL High 70-100 Blood Urea Nitrogen 7 mg/dL N 6-24 Creatinine 0.63 mg/dL Low 0.67-1.17 BUN/Creatinine Ratio 11.1 N 8-20 Calcium 9.1 mg/dL N 8.6-10.3 Egfr Non- 127.0 N >60 Egfr 163.4 N >60 14 Laboratory test 02/14/2016 [facility] Magnesium 1.8 mg/dL Low 1.9-2.7 finding [address] [place] [address] [phone] Laboratory test 01/26/2016 [facility] TSH (Thyroid 3.92 N 0.34 -5.[address] Stim Horm) ?IU/[place] [address] [phone] Basic Metabolic 01/26/2016 [facility] Sodium 121 mmol/L Low 133-145 Panel [address] [place] [address] [phone] Potassium 4.1 mmol/L N 3.5-5.0 Chloride 87 mmol/L Low 101-111 Co2 Carbon Dioxide 27 mmol/L N 22-32 Anion Gap 7 mmol/L N 2-11 Glucose 97 mg/dL N 70-100 Blood Urea Nitrogen 10 mg/dL N 6-24 Creatinine 0.62 mg/dL Low 0.67-1.17 BUN/Creatinine Ratio 16.1 N 8-20 Calcium 9.1 mg/dL N 8.6-10.3 Egfr Non- 129.4 N >60 Egfr 166.4 N >60 15 Laboratory test 01/26/2016 [facility] Magnesium 1.8 mg/dL Low 1.9-2.7 finding [address] [place] [address] [phone] Laboratory test 11/26/2015 [facility] TSH (Thyroid 6.52 High 0.34-5.[address] Stim Horm) ?IU/[place] [address] [phone] Comp Metabolic 11/26/2015 [facility] Sodium 125 Low 133-[address] mmol/[place] [address] [phone] Potassium 4.4 mmol/L N 3.5-5.0 Chloride 90 mmol/L Low 101-111 Co2 Carbon Dioxide 29 mmol/L N 22-32 Anion Gap 6 mmol/L N 2-11 Glucose 101 mg/dL High 70-100 Blood Urea Nitrogen 7 mg/dL N 6-24 Creatinine 0.65 mg/dL Low 0.67-1.17 BUN/Creatinine Ratio 10.8 N 8-20 Calcium 9.3 mg/dL N 8.6-10.3 Total Protein 7.6 g/dL N 6.4-8.9 Albumin 4.4 g/dL N 3.2-5.2 Globulin 3.2 g/dL N 2-4 Albumin/Globulin Ratio 1.4 N 1-3 Total Bilirubin 0.50 mg/dL N 0.2-1.0 Alkaline Phosphatase 90 U/L N 34-104 Alt 8 U/L N 7-52 Ast 13 U/L N 13-39 Egfr Non- 122.5 N >60 Egfr 157.6 N >60 17 Laboratory test 11/26/2015 [facility] Magnesium 2.0 mg/dL N 1.9-2.7 [address] [place] [address] [phone] CBC Auto Diff 11/26/2015 [facility] White Blood 6.3 N 3.5- 10.[address] Count 10^3/[place] [address] [phone] Red Blood Count 4.48 10^6/uL N 4.0-5.4 Hemoglobin 15.0 g/dL N 14.0-18.0 Hematocrit 44 % N 42-52 Mean Corpuscular Volume 98 fL High 80-94 Mean Corpuscular Hemoglobin 33 pg High 27-31 Mean Corpuscular HGB Conc 34 g/dL N 31-36 Red Cell Distribution Width 14 % N 10.5-15 Platelet Count 359 10^3/uL N 150-450 Mean Platelet Volume 7 um3 Low 7.4-10.4 Abs Neutrophils 4.1 10^3/uL N 1.5-7.7 Abs Lymphocytes 1.2 10^3/uL N 1.0-4.8 Abs Monocytes 0.7 10^3/uL N 0-0.8 Abs Eosinophils 0.2 10^3/uL N 0-0.6 Abs Basophils 0 10^3/uL N 0-0.2 Abs Nucleated RBC 0 10^3/uL N Granulocyte % 65.7 % N 38-83 Lymphocyte % 19.5 % Low 25-47 Monocyte % 10.9 % High 1-9 Eosinophil % 3.2 % N 0-6 Basophil % 0.7 % N 0-2 Nucleated Red Blood Cells % 0.1 N Laboratory test 09/24/2015 [facility] TSH (Thyroid 7.07 High 0.34-5.[address] Stim Horm) ?IU/[place] [address] [phone] Basic Metabolic 09/24/2015 [facility] Sodium 127 mmol/L Low 133-[address] [place] [address] [phone] Potassium 4.4 mmol/L N 3.5-5.0 Chloride 92 mmol/L Low 101-111 Co2 Carbon Dioxide 27 mmol/L N 22-32 Anion Gap 8 mmol/L N 2-11 Glucose 102 mg/dL High 70-100 Blood Urea Nitrogen 9 mg/dL N 6-24 Creatinine 0.62 mg/dL Low 0.67-1.17 BUN/Creatinine Ratio 14.5 N 8-20 Calcium 9.2 mg/dL N 8.6-10.3 Egfr Non- 129.4 N >60 Egfr 166.4 N >60 20 Laboratory test 09/24/2015 [facility] Magnesium 1.9 mg/dL N 1.9-2.7 [address] [place] [address] [phone] Laboratory test 07/20/2015 [facility] TSH (Thyroid 6.91 High 0.34-5.[address] Stim Horm) ?IU/[place] [address] [phone] Basic Metabolic 07/20/2015 [facility] Sodium 125 Low 133-[address] mmol/[place] [address] [phone] Potassium 4.4 mmol/L N 3.5-5.0 Chloride 89 mmol/L Low 101-111 Co2 Carbon Dioxide 30 mmol/L N 22-32 Anion Gap 6 mmol/L N 2-11 Glucose 92 mg/dL N 70-100 Blood Urea Nitrogen 9 mg/dL N 6-24 Creatinine 0.65 mg/dL Low 0.67-1.17 BUN/Creatinine Ratio 13.8 N 8-20 Calcium 9.2 mg/dL N 8.6-10.3 Egfr Non- 122.5 N >60 Egfr 157.6 N >60 23 Laboratory test 07/20/2015 [facility] Magnesium 1.9 mg/dL N 1.9-2.7 [address] [place] [address] [phone] Laboratory test 06/29/2015 [facility] Thyroperoxidase AB 1.86 N <[address] IU/[place] [address] [phone] Thyroid Binding Globulin 20 g/mL N 12-26 25 TSH Receptor Assay 3.55 IU/L Abnormal 26 Thyroid Stimulating Igg (Tsi) <1.0 TSIindex N <=1.3 27 Laboratory test 05/06/2015 [facility] Osmolality 335 mOsm/kg N 150-1150 [address] [place] [address] [phone] CBC Auto Diff 05/06/2015 [facility] White Blood 5.8 10^3/uL N 4.8-10.[address] [place] [address] [phone] Red Blood Count 4.42 10^6/uL N 4.0-5.4 Hemoglobin 14.4 g/dL N 14.0-18.0 Hematocrit 44 % N 42-52 Mean Corpuscular Volume 99 fL High 80-94 Mean Corpuscular Hemoglobin 33 pg High 27-31 Mean Corpuscular HGB Conc 33 g/dL N 31-36 Red Cell Distribution Width 14 % N 10.5-15 Platelet Count 354 10^3/uL N 150-450 Mean Platelet Volume 7 um3 Low 7.4-10.4 Abs Neutrophils 3.5 10^3/uL N 1.5-7.7 Abs Lymphocytes 1.3 10^3/uL N 1.0-4.8 Abs Monocytes 0.6 10^3/uL N 0-0.8 Abs Eosinophils 0.3 10^3/uL N 0-0.6 Abs Basophils 0.1 10^3/uL N 0-0.2 Abs Nucleated RBC 0 10^3/uL N Granulocyte % 61.2 % N 38-83 Lymphocyte % 22.3 % Low 25-47 Monocyte % 10.8 % High 1-9 Eosinophil % 4.8 % N 0-6 Basophil % 0.9 % N 0-2 Nucleated Red Blood Cells % 0.1 N Basic Metabolic 04/05/2015 [facility] Sodium 121 mmol/L Low 133-[address] [place] [address] [phone] Potassium 4.0 mmol/L N 3.5-5.0 Chloride 88 mmol/L Low 101-111 Co2 Carbon Dioxide 27 mmol/L N 22-32 Anion Gap 6 mmol/L N 2-11 Glucose 111 mg/dL High 70-100 Blood Urea Nitrogen 10 mg/dL N 6-24 Creatinine 0.54 mg/dL Low 0.67-1.17 BUN/Creatinine Ratio 18.5 N 8-20 Calcium 9.1 mg/dL N 8.6-10.3 Egfr Non- 152.2 N >60 Egfr 195.8 N >60 29 1 Because ethnic data is not always readily available, this report includes an eGFR for both -Americans and non- Americans. The National Kidney Disease Education Program (NKDEP) does not endorse the use of the MDRD equation for patients that are not between the ages of 18 and 70, are , have extremes of body size, muscle mass, or nutritional status, or are non- or non-. According to the National Kidney Foundation, irrespective of diagnosis, the stage of the disease is based on the level of kidney function: Stage Description GFR(mL/min/1.73 m(2)) 1 Kidney damage with normal or decreased GFR 90 2 Kidney damage with mild decrease in GFR 60-89 3 Moderate decrease in GFR 30-59 4 Severe decrease in GFR 15-29 5 Kidney failure <15 (or dialysis) 2 Because ethnic data is not always readily available, this report includes an eGFR for both -Americans and non- Americans. The National Kidney Disease Education Program (NKDEP) does not endorse the use of the MDRD equation for patients that are not between the ages of 18 and 70, are , have extremes of body size, muscle mass, or nutritional status, or are non- or non-. According to the National Kidney Foundation, irrespective of diagnosis, the stage of the disease is based on the level of kidney function: Stage Description GFR(mL/min/1.73 m(2)) 1 Kidney damage with normal or decreased GFR 90 2 Kidney damage with mild decrease in GFR 60-89 3 Moderate decrease in GFR 30-59 4 Severe decrease in GFR 15-29 5 Kidney failure <15 (or dialysis) 3 Because ethnic data is not always readily available, this report includes an eGFR for both -Americans and non- Americans. The National Kidney Disease Education Program (NKDEP) does not endorse the use of the MDRD equation for patients that are not between the ages of 18 and 70, are , have extremes of body size, muscle mass, or nutritional status, or are non- or non-. According to the National Kidney Foundation, irrespective of diagnosis, the stage of the disease is based on the level of kidney function: Stage Description GFR(mL/min/1.73 m(2)) 1 Kidney damage with normal or decreased GFR 90 2 Kidney damage with mild decrease in GFR 60-89 3 Moderate decrease in GFR 30-59 4 Severe decrease in GFR 15-29 5 Kidney failure <15 (or dialysis) 4 Due in 3 weeks: around March 10 5 Because ethnic data is not always readily available, this report includes an eGFR for both -Americans and non- Americans. The National Kidney Disease Education Program (NKDEP) does not endorse the use of the MDRD equation for patients that are not between the ages of 18 and 70, are , have extremes of body size, muscle mass, or nutritional status, or are non- or non-. According to the National Kidney Foundation, irrespective of diagnosis, the stage of the disease is based on the level of kidney function: Stage Description GFR(mL/min/1.73 m(2)) 1 Kidney damage with normal or decreased GFR 90 2 Kidney damage with mild decrease in GFR 60-89 3 Moderate decrease in GFR 30-59 4 Severe decrease in GFR 15-29 5 Kidney failure <15 (or dialysis) 6 REFERENCE VALUE 10-60 (a.m. collection) Test Performed by: [address] [address] Social Service Assistant: Thuan Quiles II, M.D., Ph.D. 7 Desirable <150 Borderline high 150-199 High 200-499 Very High >500 8 Desirable <200 Borderline high 200-239 High >239 9 Low <40 Desirable: 40-60 High: >60 10 Desirable: <100 mg/dL Near Optimal: 100-129 mg/dL Borderline High: 130-159 mg/dL High: 160-189 mg/dL Very High: >189 mg/dL 11 FASTING 10 HOUR get am cortisol before 8am 12 FASTING 10 HOUR get am cortisol before 8am 13 AM 8.7-22.4 PM <10 14 Because ethnic data is not always readily available, this report includes an eGFR for both -Americans and non- Americans. The National Kidney Disease Education Program (NKDEP) does not endorse the use of the MDRD equation for patients that are not between the ages of 18 and 70, are , have extremes of body size, muscle mass, or nutritional status, or are non- or non-. According to the National Kidney Foundation, irrespective of diagnosis, the stage of the disease is based on the level of kidney function: Stage Description GFR(mL/min/1.73 m(2)) 1 Kidney damage with normal or decreased GFR 90 2 Kidney damage with mild decrease in GFR 60-89 3 Moderate decrease in GFR 30-59 4 Severe decrease in GFR 15-29 5 Kidney failure <15 (or dialysis) 15 Because ethnic data is not always readily available, this report includes an eGFR for both -Americans and non- Americans. The National Kidney Disease Education Program (NKDEP) does not endorse the use of the MDRD equation for patients that are not between the ages of 18 and 70, are , have extremes of body size, muscle mass, or nutritional status, or are non- or non-. According to the National Kidney Foundation, irrespective of diagnosis, the stage of the disease is based on the level of kidney function: Stage Description GFR(mL/min/1.73 m(2)) 1 Kidney damage with normal or decreased GFR 90 2 Kidney damage with mild decrease in GFR 60-89 3 Moderate decrease in GFR 30-59 4 Severe decrease in GFR 15-29 5 Kidney failure <15 (or dialysis) 16 PT IS FASTING 17 Because ethnic data is not always readily available, this report includes an eGFR for both -Americans and non- Americans. The National Kidney Disease Education Program (NKDEP) does not endorse the use of the MDRD equation for patients that are not between the ages of 18 and 70, are , have extremes of body size, muscle mass, or nutritional status, or are non- or non-. According to the National Kidney Foundation, irrespective of diagnosis, the stage of the disease is based on the level of kidney function: Stage Description GFR(mL/min/1.73 m(2)) 1 Kidney damage with normal or decreased GFR 90 2 Kidney damage with mild decrease in GFR 60-89 3 Moderate decrease in GFR 30-59 4 Severe decrease in GFR 15-29 5 Kidney failure <15 (or dialysis) 18 PT IS FASTING 19 FASTING 20 Because ethnic data is not always readily available, this report includes an eGFR for both -Americans and non- Americans. The National Kidney Disease Education Program (NKDEP) does not endorse the use of the MDRD equation for patients that are not between the ages of 18 and 70, are , have extremes of body size, muscle mass, or nutritional status, or are non- or non-. According to the National Kidney Foundation, irrespective of diagnosis, the stage of the disease is based on the level of kidney function: Stage Description GFR(mL/min/1.73 m(2)) 1 Kidney damage with normal or decreased GFR 90 2 Kidney damage with mild decrease in GFR 60-89 3 Moderate decrease in GFR 30-59 4 Severe decrease in GFR 15-29 5 Kidney failure <15 (or dialysis) 21 FASTING 22 FASTING 10 HOUR To be done in 2 months 23 Because ethnic data is not always readily available, this report includes an eGFR for both -Americans and non- Americans. The National Kidney Disease Education Program (NKDEP) does not endorse the use of the MDRD equation for patients that are not between the ages of 18 and 70, are , have extremes of body size, muscle mass, or nutritional status, or are non- or non-. According to the National Kidney Foundation, irrespective of diagnosis, the stage of the disease is based on the level of kidney function: Stage Description GFR(mL/min/1.73 m(2)) 1 Kidney damage with normal or decreased GFR 90 2 Kidney damage with mild decrease in GFR 60-89 3 Moderate decrease in GFR 30-59 4 Severe decrease in GFR 15-29 5 Kidney failure <15 (or dialysis) 24 FASTING 10 HOUR To be done in 2 months 25 Test Performed by: [place] [address] Social Service Assistant: Thuan Quiles II, M.D., Ph.D. 26 REFERENCE VALUE 0.00 - 1.75 ADDITIONAL INFORMATION At a decision limit of 1.75 IU/L, this assay has 97% sensitivity and 99% specificity for detection of Graves' disease. In healthy individuals and in patients with thyroid disease without diagnosis of Graves' disease, the upper limit of anti-TSHR values are 1.22 IU/L and 1.58 IU/L, respectively (97.5th percentiles). Test Performed by: [place] [address] Social Service Assistant: Thuan Quiles II, M.D., Ph.D. 27 Test Performed by: [place] [address] Social Service Assistant: Thuan Quiles II, M.D., Ph.D. 28 FASTING 29 Because ethnic data is not always readily available, this report includes an eGFR for both -Americans and non- Americans. The National Kidney Disease Education Program (NKDEP) does not endorse the use of the MDRD equation for patients that are not between the ages of 18 and 70, are , have extremes of body size, muscle mass, or nutritional status, or are non- or non-. According to the National Kidney Foundation, irrespective of diagnosis, the stage of the disease is based on the level of kidney function: Stage Description GFR(mL/min/1.73 m(2)) 1 Kidney damage with normal or decreased GFR 90 2 Kidney damage with mild decrease in GFR 60-89 3 Moderate decrease in GFR 30-59 4 Severe decrease in GFR 15-29 5 Kidney failure <15 (or dialysis) Procedures Date Code Description Status 04/12/2015 65782 Pulmonary Function><Bronchodil Completed 03/29/2015 10223 EEG Recording Awake & Asleep Completed 03/29/2015 38950 ECHO Transthorasic Realtime 2D W Doppler & Color Flow Hosp Completed 10/28/2008 16114 Destruction ALL Benign Or Premalignant Lesion (Other Than Completed [place] Encounters Type Date Location Provider Dx Diagnosis Office Visit 08/08/2017 [facility] Internal Deric Z01.818 Encounter for other 9:00a Stanley Mcdowell M.D. preprocedural examination H26.9 Unspecified cataract I10 Essential (primary) hypertension E87.1 Hypo-osmolality and hyponatremia E03.9 Hypothyroidism, unspecified Office Visit 07/24/2017 [facility] Internal Golden Kaur E87.1 Hypo-osmolality and 10:00a Stanley Leach M.D.,FACP [facility] Chronic obstructive pulmonary disease, unspecified Z12.11 Encounter for screening for malignant neoplasm of colon E03.9 Hypothyroidism, unspecified Office Visit 11/23/2016 3:40p [facility] Internal Duarte Jackson, M25.551 Pain in right hip 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 [address] Office Visit 08/04/2016 8:20a [facility] Internal Golden Kaur E87.1 Hypo- osmolality Stanley Leach, and hyponatremia [address] [place],FACP E03.8 Other specified hypothyroidism I10 Essential (primary) hypertension Office Visit 02/18/2016 2:20p [facility] Internal Duarte Jackson, E87.1 Hypo- osmolality and 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 hypertension R E03.8 Other specified hypothyroidism E87.1 Hypo-osmolality and hyponatremia E83.42 Hypomagnesemia J44.9 Chronic obstructive pulmonary disease, unspecified K21.9 Gastro-esophageal reflux disease without esophagitis F17.210 Nicotine dependence, cigarettes, uncomplicated Office Visit 09/30/2015 10:40a [facility] Internal Kunal Clark, I10 Essential ( primary) Medicine - Suite M.D. hypertension R E03.8 Other specified hypothyroidism E87.1 Hypo-osmolality and hyponatremia E83.42 Hypomagnesemia J44.9 Chronic obstructive pulmonary disease, unspecified K21.9 Gastro-esophageal reflux disease without esophagitis F17.210 Nicotine dependence, cigarettes, uncomplicated Office Visit 08/05/2015 10:40a [facility] Internal Kunal Clark, I10 Essential ( primary) Medicine - Suite M.D. hypertension R Office Visit 07/22/2015 10:00a [facility] Internal Kunal Clark, I10 Essential ( primary) Medicine - Suite M.D. hypertension R E03.8 Other specified hypothyroidism E87.1 Hypo-osmolality and hyponatremia R56.9 Unspecified convulsions E83.42 Hypomagnesemia K21.9 Gastro-esophageal reflux disease without esophagitis J44.9 Chronic obstructive pulmonary disease, unspecified F17.210 Nicotine dependence, cigarettes, uncomplicated F10.20 Alcohol dependence, uncomplicated E03.9 Hypothyroidism, unspecified Office Visit 05/11/2015 3:40p [facility] Internal Kunal Clark, 401.9 Hypertension Unspec Medicine - M.D. [address] 244.9 Hypothyroidism Other Unspec 276.1 Hyposmolality & Or Hyponatremia 780.39 Convulsions Other 275.2 Metabolic Disorder Magnesium 530.81 Esophageal Reflux 496 COPD Airway Obstruction Chronic Not Class Elsewhere 305.00 Alcohol Abuse Unspec 305.1 Tobacco Use Disorder V10.51 History Personal Malignant Neoplasm Bladder 737.39 Scoliosis & Kyphoscoliosis Other Office Visit 04/07/2015 3:00p [facility] Internal Kunal Clark, 401.9 Hypertension Unspec Medicine - M.D. [address] 780.39 Convulsions Other 276.1 Hyposmolality & Or Hyponatremia 275.2 Metabolic Disorder Magnesium 530.81 Esophageal Reflux 786.2 Cough 724.5 Backache Unspec 305.00 Alcohol Abuse Unspec 305.1 Tobacco Use Disorder Office Visit 03/31/2015 [facility] Michelle Jean 780.39 Convulsions Other 12:10p taco Kent M.D. Hospitalists 276.1 Hyposmolality & Or Hyponatremia 275.2 Metabolic Disorder Magnesium 305.00 Alcohol Abuse Unspec Office Visit 03/30/2015 [facility] Michelle Jean, 780.39 Convulsions Other 12:09p taco Kent M.D. Hospitalists 276.1 Hyposmolality & Or Hyponatremia 275.2 Metabolic Disorder Magnesium 305.00 Alcohol Abuse Unspec Office Visit 03/29/2015 [facility] Michelle Jean, 780.39 Convulsions Other 12:09p taco Kent M.D. Hospitalists 276.1 Hyposmolality & Or Hyponatremia 275.2 Metabolic Disorder Magnesium 305.00 Alcohol Abuse Unspec Office Visit 03/28/2015 [facility] Michelle Jean, 780.39 Convulsions Other 12:06p taco Kent M.D. Hospitalists 276.1 Hyposmolality & Or Hyponatremia 305.00 Alcohol Abuse Unspec Office Visit 08/31/2009 DO Not Use [place], 276.1 Hyposmolality & Or 8:30a Loretta Guillermo M.D. Hyponatremia 401.1 Hypertension Benign Office Visit 06/01/2009 9:15a DO Not Use [place], 496 COPD Airway Loretta Guillermo M.D. Obstruction Chronic Not Class Elsewhere 276.1 Hyposmolality & Or Hyponatremia 244.9 Hypothyroidism Other Unspec 401.1 Hypertension Benign Office Visit 03/01/2009 DO Not Use [place], 276.1 Hyposmolality & Or 8:30a Loretta Guillermo M.D. Hyponatremia 303.90 Alcohol Dependence Other & Unspec Office Visit 12/28/2008 9:15a DO Not Use [place], 782.1 Rash & Other Loretta Guillermo M.D. Nonspec Skin Eruption 401.1 Hypertension Benign 276.1 Hyposmolality & Or Hyponatremia Office Visit 10/28/2008 8:30a DO Not Use [place], 702.0 Actinic Loretta Guillermo M.D. Keratosis 401.1 Hypertension Benign 276.1 Hyposmolality & Or Hyponatremia Office Visit 08/25/2008 DO Not Use [place], V70.0 Examination 1:15p Loretta Guillermo M.D. General Medical Routine AT Health Care Facility 401.1 Hypertension Benign V03.82 Streptococcus Pneumoniae Vaccination Spec Other V06.1 Owxsczlvhy-Lwnycye-Dgtsyjkd Combined (DTaP) Office Visit 05/27/2008 DO Not Use [place], 244.9 Hypothyroidism 11:15a Loretta Guillermo M.D. Other Unspec 276.1 Hyposmolality & Or Hyponatremia 401.1 Hypertension Benign Office Visit 05/05/2008 DO Not Use [place], 276.1 Hyposmolality & Or 11:30a Loretta Guillermo M.D. Hyponatremia 401.1 Hypertension Benign Office Visit 12/12/2007 DO Not Use [place], 244.9 Hypothyroidism 2:00p Loretta Guillermo M.D. Other Unspec 276.1 Hyposmolality & Or Hyponatremia 401.1 Hypertension Benign 303.90 Alcohol Dependence Other & Unspec Office Visit 10/14/2007 DO Not Use [place], 276.1 Hyposmolality & Or 10:15a Loretta Guillermo M.D. Hyponatremia 244.9 Hypothyroidism Other Unspec 401.1 Hypertension Benign Office Visit 09/02/2007 DO Not Use [place], 276.1 Hyposmolality & Or 10:15a Loretta Guillermo M.D. Hyponatremia 244.9 Hypothyroidism Other Unspec 401.1 Hypertension Benign Office Visit 08/01/2007 DO Not Use [place], 276.1 Hyposmolality & Or 3:30p Loretta Guillermo M.D. Hyponatremia 401.1 Hypertension Benign Office Visit 07/03/2007 DO Not Use [place], 244.9 Hypothyroidism 10:45a Loretta Guillermo M.D. Other Unspec 276.1 Hyposmolality & Or Hyponatremia 401.1 Hypertension Benign Office Visit 06/05/2007 DO Not Use [place], 401.1 Hypertension 9:30a Loretta Guillermo M.D. Benign Office Visit 05/13/2007 DO Not Use [place], V70.0 Examination 10:45a Loretta Guillermo M.D. General Medical Routine AT Health Care Facility 401.1 Hypertension Benign Plan of Treatment 01/22/2018 - Golden Leach M.D.,FACPZ00.00 Encounter for general adult medical examination without abnormal vxtvfyihA31.01 Encounter for general adult medical examination with abnormal findingsComments:Advised flu vaccine in fall. Routine Health Maintenance up to date. Depression screen: on fileADL screen: negativeAdvance directives: HCP discussed, form to be obtainedCognitive impairment screen: negative Reviewed [facility] DM/HM form.E03.9 Hypothyroidism, unspecifiedComments:Thyroid symptoms suggest that current dose Levothyroxine is appropriate. Continue this dose, take medication on an empty stomach. You are due for periodic TSH monitoring.E87.1 Hypo-osmolality and hyponatremiaComments: Advised decreased alcohol use.E83.42 HypomagnesemiaComments:Complete blood test to monitor magnesium levels.I10 Essential (primary) hypertensionComments:You are meeting target blood pressure. Continue low salt diet and current medications.Aerobic exercise 30 minutes 5 times per week should improve blood pressure.J44.9 Chronic obstructive pulmonary disease, unspecifiedComments: Discussed use of inhalers if breathing becomes difficult.Advised smoking cessation efforts.Z23 Encounter for immunization Goals 01/22/2018 - Golden Leach M.D.,FACPI10 Essential (primary) hypertensionBlood pressure goal <140/90 in general. Blood pressure goal < 150/90 in people older than 75. Blood pressure goal <130/85 in diabetic patients. Goal BMI is less than 25.
--- OUTSIDE RECORDS SUMMARY | 2019-03-27 11:05 | XMS REPORT | Continuity of Care Document ---
:1950 External Reference #:[id number] Author Name Felisa Villanueva Care Team Providers Name Role Phone Golden Leach MD Primary Care Physician Unavailable Payers Date Identification Numbers Payment Provider Subscriber Effective: 2014 Policy Number: [id number] Medicare Blue Ppo [employer] Number: [id number] [address] [address] PayID: [id number] [place] [address] Advance Directives Type Date Description Status Comment [...] Lourdes Mohan, 2015 - by mouth twice HOUSE PIPING INSPECTOR 01/22/2018 400(241.3mg) mg a day Tablets Levothyroxine Sodium Take 2 & 1/2 75tabs E03.9 Golden Kaur 11/29/2015 - Tablets By Salena Leach,[facility] 07/24/2017 25mcg Tablets Mouth Once Daily On [...] J44.9 Duarte Jackson, 07/22/2015 - 18mcg daily HOUSE PIPING INSPECTOR 11/23/2016 Capsules Combivent Respimat 1 puff four QS J44.9 Duarte Jackson, 07/22/2015 - times per day HOUSE PIPING INSPECTOR 08/04/2016 20-100mcg/Act Aerosol Levothyroxine Sodium 1 tablet [...] Golden Kaur - 25mg a day Salena Leach,[facility] 02/18/2016 Tablets Sodium Chloride 1 by mouth three 30tabs Kunal Clark, - 1gm times daily M.D. 07/22/2015 Tablets Immunizations CPT Code Status Date Vaccine Lot # 77719 Given 01/22/2018 Pneumococcal Conjugate Vaccine 13 Valent For [id number] Intramuscular Use 64791 Given 08/25/2008 Pneumonia Vaccine 99339 Given 08/25/2008 Pneumonia Vaccine 34751 Given 08/25/2008 Tdap - Tetanus/Diptheria/Acellular Pertussis Vital [...] 122 mmol/L Low 133-145 Panel [address] [place] [address] [phone] Potassium 4.5 mmol/L N 3.5-5.0 Chloride 84 [...] finding [address] Stim Horm) mcIU/[place] [address] [phone] Basic Metabolic 07/23/2017 [facility] Sodium 123 mmol/L Low 133-[address] [place] [address] [phone] Potassium 4.8 mmol/L N 3.5-5.0 Chloride 88 [...] 120 mmol/L Low 133-145 Panel [address] [place] [address] [phone] Potassium 4.4 mmol/L N 3.5-5.0 Chloride 84 [...] 0.34-5.[address] Stim [place]orm) [place] [address] [phone] Hepatitis C Antibody Nonreactive N Nonreactive Laboratory test 05/12/2016 [facility] Magnesium 1.9 mg/dL N 1.9-2.7 4 finding [address] [place] [address] [phone] Basic Metabolic 05/12/2016 [facility] Sodium 124 mmol/L Low 133-145 Panel [address] [place] [address] [phone] Potassium 4.3 mmol/L N 3.5-5.0 Chloride 88 [...] Acth 53 pg/mL N 6 [address] [place] [address] [phone] Lipid Profile 02/18/2016 [facility] Triglycerides 50 mg/dL N 7 (Trig/Chol/HDL) [address] [place] [address] [phone] Cholesterol 165 mg/dL N 8 HDL Cholesterol 52.1 mg/dL N 9 LDL Cholesterol 103 mg/dL N 10 Laboratory test 02/18/2016 [facility] Osmolality 241 mOsm/kg N 150-11[address] [place] [address] [phone] Sodium Random Urine 31 mmol/L N 12 Cortisol 14.52 ?g/dL N 13 Basic Metabolic 02/14/2016 [facility] Sodium 124 mmol/L Low 133-145 Panel [address] [place] [address] [phone] Potassium 4.1 mmol/L N 3.5-5.0 Chloride 91 [...] Magnesium 1.8 mg/dL Low 1.9-2.7 finding [address] [place] [address] [phone] Laboratory test 01/26/2016 [facility] TSH (Thyroid 3.92 N 0.34 -5.[address] Stim Horm) ?IU/[place] [address] [phone] Basic Metabolic 01/26/2016 [facility] Sodium 121 mmol/L Low 133-145 Panel [address] [place] [address] [phone] Potassium 4.1 mmol/L N 3.5-5.0 Chloride 87 [...] Magnesium 1.8 mg/dL Low 1.9-2.7 finding [address] [place] [address] [phone] Laboratory test 11/26/2015 [facility] TSH (Thyroid 6.52 High 0.34-5.[address] Stim Horm) ?IU/[place] [address] [phone] Comp Metabolic 11/26/2015 [facility] Sodium 125 Low 133-[address] mmol/[place] [address] [phone] Potassium 4.4 mmol/L N 3.5-5.0 Chloride 90 [...] N 1.9-2.7 [address] [place] [address] [phone] CBC Auto Diff 11/26/2015 [facility] White Blood 6.3 N 3.5- 10.[address] Count 10^3/[place] [address] [phone] Red Blood Count 4.48 10^6/uL N 4.0-5.4 [...] [address] Stim Horm) ?IU/[place] [address] [phone] Basic Metabolic 09/24/2015 [facility] Sodium 127 mmol/L Low 133-[address] [place] [address] [phone] Potassium 4.4 mmol/L N 3.5-5.0 Chloride 92 [...] N 1.9-2.7 [address] [place] [address] [phone] Laboratory test 07/20/2015 [facility] TSH (Thyroid 6.91 High 0.34-5.[address] Stim Horm) ?IU/[place] [address] [phone] Basic Metabolic 07/20/2015 [facility] Sodium 125 Low 133-[address] mmol/[place] [address] [phone] Potassium 4.4 mmol/L N 3.5-5.0 Chloride 89 [...] N 1.9-2.[address] [place] [address] [phone] Laboratory test 06/29/2015 [facility] Thyroperoxidase AB 1.86 N <[address] IU/[place] [address] [phone] Thyroid Binding Globulin 20 g/mL N 12-26 25 TSH Receptor Assay 3.55 IU/L Abnormal 26 Thyroid Stimulating Igg (Tsi) <1.0 TSIindex N <=1.3 27 Laboratory test 05/06/2015 [facility] Osmolality 335 mOsm/kg N 150-11[address] [place] [address] [phone] CBC Auto Diff 05/06/2015 [facility] White Blood 5.8 10^3/uL N 4.8-10.[address] [place] [address] [phone] Red Blood Count 4.42 10^6/uL N 4.0-5.4 [...] mmol/L Low 133-[address] [place] [address] [phone] Potassium 4.0 mmol/L N 3.5-5.0 Chloride 88 [...] VALUE 10-60 (a.m. collection) Test Performed by: [address] [address] Manual Winder: Thuan Quiles II, M.D., Ph.D. 7 Desirable [...] in 2 months 25 Test Performed by: [place] [address] Manual Winder: Thuan Quiles II, M.D., Ph.D. 26 REFERENCE [...] IU/L, respectively (97.5th percentiles). Test Performed by: [place] [address] Manual Winder: Thuan Quiles II, M.D., Ph.D. 27 Test Performed by: [place] [address] Manual Winder: Thuan Quiles II, M.D., Ph.D. 28 FASTING [...] dialysis) Procedures Date Code Description Status 04/12/2015 68718 Pulmonary Function><Bronchodil Completed 03/29/2015 83555 EEG Recording Awake & Asleep Completed 03/29/2015 42667 ECHO Transthorasic Realtime 2D W Doppler & Color Flow Hosp Completed 10/28/2008 77447 Destruction ALL Benign Or Premalignant Lesion (Other Than Completed [place] Encounters Type Date Location Provider Dx Diagnosis Office Visit 08/08/2017 [facility] Internal Deric Z01.818 Encounter for other 9:00a Stanley Mcdowell M.D. preprocedural examination H26.9 Unspecified cataract I10 Essential (primary) hypertension E87.1 Hypo-osmolality and hyponatremia E03.9 Hypothyroidism, unspecified Office Visit 07/24/2017 [facility] Internal Golden Kaur E87.1 Hypo-osmolality and 10:00a Stanley Leach M.D.,FACP [facility] Chronic obstructive pulmonary disease, unspecified Z12.11 Encounter for screening for malignant neoplasm of colon E03.9 Hypothyroidism, unspecified Office Visit 11/23/2016 3:40p [facility] Internal Duarte Jackson, M25.551 Pain in right hip Medicine - HOUSE PIPING INSPECTOR [address] Office Visit 08/04/2016 8:20a [facility] Internal Golden Kaur E87.1 Hypo- osmolality Stanley Leach, and hyponatremia [address] Salena,FACP E03.8 Other specified hypothyroidism I10 Essential (primary) hypertension Office Visit 02/18/2016 2:20p [facility] Internal Duarte Jackson, E87.1 Hypo- osmolality and Medicine - HOUSE PIPING INSPECTOR hyponatremia [address] E03.8 Other specified hypothyroidism E83.42 Hypomagnesemia I10 Essential (primary) hypertension E03.9 Hypothyroidism, unspecified Office Visit 02/01/2016 1:20p [facility] Internal Duarte Jackson, E03.8 Other specified Medicine - HOUSE PIPING INSPECTOR hypothyroidism [address] E87.1 Hypo-osmolality and hyponatremia E83.42 Hypomagnesemia I10 Essential (primary) hypertension E03.9 Hypothyroidism, unspecified Office Visit 11/29/2015 3:20p [facility] Internal Kunal Clark, I10 Essential ( primary) Medicine - Suite M.D. hypertension R E03.8 Other specified hypothyroidism E87.1 Hypo-osmolality and hyponatremia E83.42 Hypomagnesemia J44.9 Chronic obstructive pulmonary disease, unspecified K21.9 Gastro-esophageal reflux disease without esophagitis F17.210 Nicotine dependence, cigarettes, uncomplicated Office Visit 09/30/2015 10:40a [facility] Internal Kunal Clark, I10 Essential ( primary) Medicine - Suite M.D. hypertension R E03.8 Other specified hypothyroidism E87.1 Hypo-osmolality and hyponatremia E83.42 Hypomagnesemia J44.9 Chronic obstructive pulmonary disease, unspecified K21.9 Gastro-esophageal reflux disease without esophagitis F17.210 Nicotine dependence, cigarettes, uncomplicated Office Visit 08/05/2015 10:40a [facility] Internal Kunal Clark, I10 Essential ( primary) Medicine - Suite M.D. hypertension R Office Visit 07/22/2015 10:00a [facility] Internal Kunal Clark, I10 Essential ( primary) Medicine - Suite M.D. hypertension R E03.8 Other specified hypothyroidism E87.1 Hypo-osmolality and hyponatremia R56.9 Unspecified convulsions E83.42 Hypomagnesemia K21.9 Gastro-esophageal reflux disease without esophagitis J44.9 Chronic obstructive pulmonary disease, unspecified F17.210 Nicotine dependence, cigarettes, uncomplicated F10.20 Alcohol dependence, uncomplicated E03.9 Hypothyroidism, unspecified Office Visit 05/11/2015 3:40p [facility] Internal Kunal Clark, 401.9 Hypertension Unspec Medicine - M.D. [address] 244.9 Hypothyroidism Other Unspec 276.1 Hyposmolality & Or Hyponatremia 780.39 Convulsions Other 275.2 Metabolic Disorder Magnesium 530.81 Esophageal Reflux 496 COPD Airway Obstruction Chronic Not Class Elsewhere 305.00 Alcohol Abuse Unspec 305.1 Tobacco Use Disorder V10.51 History Personal Malignant Neoplasm Bladder 737.39 Scoliosis & Kyphoscoliosis Other Office Visit 04/07/2015 3:00p [facility] Internal Kunal Clark, 401.9 Hypertension Unspec Medicine - M.D. [address] 780.39 Convulsions Other 276.1 Hyposmolality & Or Hyponatremia 275.2 Metabolic Disorder Magnesium 530.81 Esophageal Reflux 786.2 Cough 724.5 Backache Unspec 305.00 Alcohol Abuse Unspec 305.1 Tobacco Use Disorder Office Visit 03/31/2015 [facility] Michelle Jean 780.39 Convulsions Other 12:10p taco Kent M.D. Hospitalists 276.1 Hyposmolality & Or Hyponatremia 275.2 Metabolic Disorder Magnesium 305.00 Alcohol Abuse Unspec Office Visit 03/30/2015 [facility] Michelle Jean, 780.39 Convulsions Other 12:09p taco Kent M.D. Hospitalists 276.1 Hyposmolality & Or Hyponatremia 275.2 Metabolic Disorder Magnesium 305.00 Alcohol Abuse Unspec Office Visit 03/29/2015 [facility] Michelle Jean, 780.39 Convulsions Other 12:09p taco Kent M.D. Hospitalists 276.1 Hyposmolality & Or Hyponatremia 275.2 Metabolic Disorder Magnesium 305.00 Alcohol Abuse Unspec Office Visit 03/28/2015 [facility] Michelle Jean, 780.39 Convulsions Other 12:06p taoc Kent M.D. Hospitalists 276.1 Hyposmolality & Or [...] V03.82 Streptococcus Pneumoniae Vaccination Spec Other V06.1 Zenougqbgv-Oembzob-Uzyterpr Combined (DTaP) Office Visit 05/27/2008 DO Not [...] for general adult medical examination without abnormal furovlueK61.01 Encounter for general adult medical examination with abnormal findingsComments:Advised flu vaccine in fall. Routine Health Maintenance up to date. Depression screen: on fileADL screen: negativeAdvance directives: HCP discussed, form to be obtainedCognitive impairment screen: negative Reviewed [facility] DM/HM form.E03.9 Hypothyroidism, unspecifiedComments:Thyroid symptoms suggest [...]
[2019-03-27 11:34] LABS: ABS Lymphocytes 0.6 10^3/ul (1.0-4.8); ABS Monocytes 0.8 10^3/ul (0-0.8); ABS Neutrophils 8.6 10^3/ul (1.5-7.7); Eosinophil % 0.1 %; Hematocrit 39 % (42-52); Hemoglobin 13.3 g/dL (14.0-18.0); Lymphocyte % 5.9 %; Mean Corpuscular HGB Conc 34 g/dL (31-36); Mean Corpuscular Hemoglobin 36 pg (27-31); Mean Corpuscular Volume 105 fL (80-94); Mean Platelet Volume 7.6 fL (7.4-10.4); Platelet Count 167 10^3/uL (150-450); Red Blood Count 3.72 10^6 /uL (4.18-5.48); Red Cell Distribution Width 14 % (10-15); White Blood Count 10.1 10^3/uL (3.5-10.8)
[2019-03-27 11:55] LABS: ALT 14 U/L (7-52); AST 28 U/L (13-39); Albumin 3.6 g/dL (3.2-5.2); Albumin/Globulin Ratio 1.1 (1-3); Alkaline Phosphatase 67 U/L (34-104); Anion Gap 5 mmol/L (2-11); Blood Urea Nitrogen 13 mg/dL (6-24); CO2 Carbon Dioxide 35 mmol/L (22-32); Calcium 8.3 mg/dL (8.6-10.3); Chloride 87 mmol/L (101-111); EGFR African American 198.9 (>60); EGFR Non-African American 164.4 (>60); Globulin 3.3 g/dL (2-4); Glucose 145 mg/dL (70-100); Potassium 4.5 mmol/L (3.5-5.0); Sodium 127 mmol/L (135-145); Total Protein 6.9 g/dL (6.4-8.9)
[2019-03-27] MEDS ORDERED: Cefepime 2 GM in Dextrose(*) 2 GM/50 ML BAG IV ONE (11:55)
[2019-03-27] MEDS ORDERED: methylPREDNISolone 125 MG* 2 ML VIAL IV ONE (11:55)
[2019-03-27] MEDS ORDERED: Albuterol 2.5 MG/3 ML NEB.SOL* (0.083%) INH ONE (11:57)
[2019-03-27 11:58] LABS: Troponin I 1.07 ng/mL (<0.04)
[2019-03-27 14:51] LABS: TSH (Thyroid Stimulating Horm) 16.97 mcIU/mL (0.34-5.60)
[2019-03-27 15:13] LABS: Troponin I 1.04 ng/mL (<0.04)
[2019-03-27] MEDS ORDERED: Acetaminophen TAB* 325 MG PO PRN ×2 (15:34→20:52)
[2019-03-27] MEDS ORDERED: Iodixanol* (CONTRAST) 320 MG/ML 100 ML SDV IV ONE (15:49)
[2019-03-27 16:21] LABS: % Iron Saturation 19 % (15-55); Iron 60 ug/dL (50-212); Total Iron Binding Capacity 308 mcg/dL (250-450); Transferrin 220 mg/dL (203-362)
[2019-03-27 16:43] LABS: Ferritin 140.5 ng/mL (24-336)
[2019-03-27 16:47] LABS: Folate 9.31 ng/mL (>3.99)
--- NOTE | 2019-03-27 18:03 | HP ---
CC: Dr. Simon Hawkins * HISTORY AND PHYSICAL: DATE OF ADMISSION: 03/27/19 PRIMARY CARE PROVIDER: Dr. Simon Hawkins. ATTENDING PHYSICIAN: Dr. Frazier * (dictated by Amara Montague, CLAIRE). CHIEF COMPLAINT: Shortness of breath. HISTORY OF PRESENT ILLNESS: Mr. Chapman is a 68-year-old male with a past medical history significant for COPD, hypertension, alcoholism, hypothyroid, seizure secondary to alcohol detox, third degree heart block status post pacer; who presented to the emergency department on 03/27/19 with complaints of shortness of breath. It should be noted that the patient was discharged on by Dr. Elvi Leach after a hospital stay where he was found unresponsive and bradycardic and was found to be in third-degree heart block; therefore, a pacer was placed. The patient reports he felt well at the time of discharge last evening, but around 11 o'clock at night started to feel short of breath. The patient's daughter reports that she thought this was anxiety secondary to wanting a cigarette. The patient later went to bed and when she checked on him around midnight, he was feeling better. This morning, he awoke and he was significantly short of breath; therefore, he was brought to the emergency room. He denies chest pain, palpitations, dizziness, fever, abdominal pain, nausea, vomiting. He reports occasional cough with grayish sputum. The patient reports his shortness of breath has improved since being here in the emergency department and receiving DuoNeb, antibiotics, Lasix. The patient reports aggravating symptoms including activity and alleviating symptoms include rest. While in the emergency room, the patient had an EKG which revealed a ventricularly paced rhythm. He had a chest x-ray which revealed likely possible pneumonia in the right lung base with increasing right pleural effusion. He also had labs, which revealed slight macrocytic anemia, an elevated D-dimer, hyponatremia, slight lactic acidosis, elevated troponin, and elevated BNP. Given these findings, the hospitalists were asked to consult for admission. Upon my assessment, I was concerned about the patient's elevated troponin and newly elevated BNP; therefore, I consulted Dr. Pagan from Cardiology. A stat echocardiogram was ordered and Dr. Pagan evaluated the patient in the emergency room. The preliminary read of a stat echo is that the patient has significant aortic stenosis and reduced EF. Dr. Pagan spoke with the patient regarding intervention. At this time, he wants to be a full code, but does not want to decide upon interventions as he is not sure he wants any interventions for his current illness. Therefore, the patient will be admitted for gentle diuresis and monitoring. The patient plans to speak with his family regarding further treatment for these findings. PAST MEDICAL HISTORY: 1. COPD. 2. Hypertension. 3. Alcoholism. 4. Hypothyroid. 5. Seizure secondary to alcohol abuse. 6. Third degree heart block, status post pacer. PAST SURGICAL HISTORY: 1. Hernia repair. 2. Abdominal surgery as a child. FAMILY HISTORY: The patient's family history is positive for hypertension and diabetes in both his mother and grandmother. SOCIAL HISTORY: The patient currently lives with his daughter, Dai Menjivar. The patient was smoking 3 packs per day until about a week ago and he is now cut back and is wearing a patch. The patient denies drug use. The patient reports daily alcohol use approximately 7 to 8 beers a day. The patient has not had a drink since around the 03/21/19 when he was admitted to the ICU. The patient's surrogate decision maker will be his daughter, Dai Menjivar; she can be reached at [phone] in the event he could not make a decision for himself. REVIEW OF SYSTEMS: A 14-point review of systems was completed and all pertinent positives and negatives are in the HPI. PHYSICAL EXAMINATION GENERAL: Mr. Chapman is a 68-year-old male who is lying in bed. Appears to be slightly dyspneic. Appears chronically ill. HEENT: EOMs intact. PERRLA. Oral mucosa is moist without lesion. Posterior pharynx is clear. NECK: Supple. No lymphadenopathy. RESPIRATORY: The patient has slight crackles at the bases and overall diminished aeration. CARDIAC: S1 and S2 present. Irregular rhythm. Regular rate. Slight systolic murmur noted. ABDOMEN: Soft, nontender. EXTREMITIES: +1 pitting edema bilaterally. No clubbing or cyanosis. Pedal pulses are 2+ bilaterally. MUSCULOSKELETAL: No pain or deformities. NEURO: Neuro exam is grossly intact. No focal deficits or weakness. SKIN: Grossly intact. DIAGNOSTIC STUDIES/LAB DATA: WBC 10.1, hemoglobin 13.3, hematocrit 39, platelets 167. D-dimer 1050. Sodium 127, potassium 4.5, chloride 87, carbon dioxide 35, BUN 13, creatinine 0.50, lactic 2.1. Troponin 1.07. BNP greater than 1300. TSH 17.97. ASSESSMENT AND PLAN: 1. Shortness of breath: The patient is currently on 4 L and satting 97%. We will continue supplemental oxygen, but titrate to maintain saturation greater than 92. We suspect the patient's shortness of breath is secondary to his aortic stenosis and congestive heart failure. We will continue gentle IV diuresis as the patient is at risk for side effects of hyper or hypovolemia given aortic stenosis. We will obtain daily weights and strict I's and O's. Also on the differential includes pneumonia given the patient was recently admitted and intubated. I have a lower suspicion for this as the patient is afebrile and has no leukocytosis. The patient received cefepime in the emergency room. I am going to hold on continuing his antibiotics as we have another source for the shortness of breath, but will have a low threshold for restarting cefepime. In addition on the differential includes chronic obstructive pulmonary disease exacerbation. Once again, this is lower on the differential as the patient has signs and symptoms of congestive heart failure and the aortic stenosis. The patient did receive methylprednisolone 125 mg IV in the emergency department. The patient has no wheezing and no significant sputum production as the patient's daughter reports his current sputum production is baseline for him. I am going to hold on continuing steroids and other treatment for chronic obstructive pulmonary disease except for his home medications, unless otherwise indicated. 2. Macrocytic anemia: As mentioned above, the patient is slightly macrocytic anemic. I suspect this is due to the patient's significant alcohol intake. I will order an iron study including a vitamin B12 and folate. 3. Hyponatremia: The patient is slightly hyponatremic at 127, this is actually near the patient's baseline, but I suspect he is low given fluid overload. We will continue diuresis and hold on IV fluids and repeat his sodium. If it continues to drop, I will place the patient on a fluid restriction. 4. Congestive heart failure exacerbation: We suspect the patient's shortness of breath is secondary to congestive heart failure exacerbation and also aortic stenosis. He did receive Lasix here in the emergency department 40 mg IV and had good response as he had 1300 output. We will reassess Lasix for tomorrow morning. I am going to hold on ordering additional Lasix and defer this to the provider tomorrow given his aortic stenosis and risk of hypovolemia. 5. Lactic acidosis: I suspect his slightly elevated lactic acid 2.1 is secondary to his shortness of breath. I will repeat in 3 hours. 6. Elevated troponin: The patient's initial troponin was 1.07 and his repeat is 1.04. We suspect this is secondary to the patient's aortic stenosis and congestive heart failure exacerbation. We will continue to trend this and monitor him carefully. The patient will be placed on telemetry. The patient is chest pain free. 7. Elevated BNP: The patient has an elevated BNP of 1300. This is consistent with the patient's congestive heart failure. We will provide gentle diuresis. 8. Aortic stenosis: The patient was noted to have aortic stenosis on a preliminary read of his echo. He will be speaking to his family about further treatment and whether he would like a valve replacement. In the meantime, we need to avoid hypovolemia, hypervolemia, ADELSO inhibitors, and calcium channel blockers. 9. Elevated TSH: The patient has an elevated TSH of 16.97. It should be mentioned on his admission on 03/21/19, he was 21.30 and his Synthroid was adjusted. Therefore, I am going to hold off on adjusting his Synthroid again as this was less than a week ago. I would recommend the patient follow up with his primary care in 4 to 6 weeks. 10. Hypertension: The patient is currently mildly hypertensive with the systolic in the 150s. I am going to hold on giving the patient his amlodipine due to his aortic stenosis. I will continue the patient's metoprolol and monitor his blood pressure. 11. Alcoholism: The patient will be placed on seizure precautions. I am going to withhold on a WAM protocol at this time as the patient reports it has been over a week since his last drink due to being hospitalized. We will monitor the patient closely and have a low threshold for starting a WAM protocol. 12. Third-degree heart block, status post pacer: The patient is status post pacer due to third-degree heart block. He had a pacer placed on 03/22/19. The patient currently has a dressing to his left chest wall which is clean, dry and intact. The patient should continue the Keflex 250 mg p.o. b.i.d. as instructed by Dr. Wellington. The patient will be placed on tele. Cardiology is consulting. 13. FEN: The patient will be provided with a heart healthy diet. 14. DVT prophylaxis: The patient is high risk; therefore, the patient will be placed on subcu heparin. 15. Elevated D-dimer: The patient had an elevated D-dimer while in the emergency department of greater than 1050. D-dimer was added to his labs given his significant hypoxia and tachycardia on admission. Given his elevation and symptomatology, I have ordered a CTA of his chest, which is currently pending. 16. Code status: The patient is currently a full code, but would like to discuss with his family before deciding to be a DNR. TIME SPENT: Approximately 70 minutes was spent on this admission, greater than half that time was spent [id number] with the patient and his daughter obtaining my history, performing physical exam and discussing my plan of care. This plan was discussed with my attending, Dr. Frazier, who is in agreement with my plan of care. Reviewed by AMARA MONTAGUE NP 03/31/19 @ 0821 [id number]/[facility] #: [id number] NAMITA
[2019-03-27 18:12] LABS: Troponin I 1.39 ng/mL (<0.04)
[2019-03-27] MEDS ORDERED: Heparin DRIP 25,000 UNITS(*) 25,000 UNITS/500 ML BAG IV SCH (18:30)
--- NOTE | 2019-03-27 18:33 | ECHO ---
*[facility]* [place] [address] Fax #: [phone] Transthoracic Echocardiogram Patient: Anjum Chapman : 1950 Study Date: 03/27/2019 Age: 68 Gender: M HR: 99 bpm Height: 67 in /170.2 cm BSA: 1.63 m^2 Weight: 119.8 lb /54.4 kg BMI: 18.8 kg/m^2 *Animal Stunner: * Mihaela Soares RD *Referring Physician: * Janet Brown *Reading Physician: * Bennett Pagan MD Indications: SOB. History: Aortic stenosis. Mitral regurgitation. Cerebrovascular accident. Risk factors: Current tobacco use. Hypertension. Seizures. Hiatal hernia. Labs, prior tests, procedures, and surgery: Permanent pacemaker system implantation. Conclusions Summary: - Left ventricle: There is mild concentric hypertrophy. Systolic function is severely reduced. The estimated ejection fraction is 20-25%. Systolic function is worse from the study of 03/21/2019. Features are consistent with a pseudonormal left ventricular filling pattern, with concomitant abnormal relaxation and increased filling pressure (grade 2 diastolic dysfunction). - Regional wall motion abnormality: Akinesis of the apical anterior, apical inferior, and apical myocardium; severe hypokinesis of the basal anteroseptal myocardium. - Right ventricle: Systolic function is mildly to moderately reduced. Systolic pressure is moderately increased. - Left atrium: The atrium is severely dilated. - Mitral valve: The findings are consistent with mild stenosis. There is moderate regurgitation. - Aortic valve: The findings are consistent with moderate to severe stenosis. There is mild to moderate regurgitation. - Pulmonary arteries: Systolic pressure is moderately increased. Study data: Transthoracic echocardiogram. Procedure: Transthoracic echocardiography was performed. Image quality was fair. The study was technically limited due to poor Parasternal acoustic window availability. Complete 2D, spectral Doppler, and color flow Doppler. Location: Emergency department. Patient status: Inpatient. Patient room number: ED-17. Comparison is made to the study of 03/21/2019. Rhythm: Paced rhythm. Findings Left ventricle: The cavity size is normal. There is mild concentric hypertrophy. Systolic function is severely reduced. The estimated ejection fraction is 20-25%. Systolic function is worse from the study of 03/21/2019. On visual review, the anterior apical wall motion abnormality was present last time but to a less degree with an ejection fraction that was mild to moderately then. Mild diffuse hypokinesis. Regional wall motion abnormalities: Akinesis of the apical anterior, apical inferior, and apical myocardium; severe hypokinesis of the basal anteroseptal myocardium. Features are consistent with a pseudonormal left ventricular filling pattern, with concomitant abnormal relaxation and increased filling pressure (grade 2 diastolic dysfunction). Right ventricle: The cavity size is at the upper limits of normal. The moderator band is in a normal position. Pacer wire noted in the right ventricle. Systolic function is mildly to moderately reduced. Systolic pressure is moderately increased. Ventricular septum: There is abnormal interventricular septal wall motion consistent with an RV pacemaker. Left atrium: The atrium is severely dilated. Right atrium: The atrium is mildly to moderately dilated. Pacer wire noted in right atrium. Mitral valve: Is mildly calcified. The findings are consistent with mild stenosis. There is moderate regurgitation. Aortic valve: Poorly visualized. The leaflets are moderately calcified. The findings are consistent with moderate to severe stenosis. There is mild to moderate regurgitation. Tricuspid valve: The leaflets are normal thickness. There is no evidence of stenosis. There is moderate regurgitation. Pulmonic valve: The leaflets are normal thickness. There is no evidence of stenosis. There is trace to mild regurgitation. Aorta: Aortic root: The aortic root is appears normal. Ascending aorta: The ascending aorta is poorly visualized and appears normal. Aortic arch: The aortic arch is not visualized. Pericardium: There is no significant pericardial effusion. Pulmonary arteries: The main pulmonary artery is normal-sized. Systolic pressure is moderately increased. Systemic veins: Inferior vena cava: The vessel is dilated. There is (>= 50%) respiratory change in the IVC dimension. Measurements Left ventricle Value Ref Aortic valve continued Value Ref NAVEED, LAX (L) 4.0 cm 4.2 - Mean grad, S 16.0 mm Hg ----- 5.8 Peak grad, S 38.4 mm Hg ----- ESD, LAX 3.9 cm 2.5 - LVOT/AV, VTI ratio 0.45 ----- 4.0 LEON, VTI 1.41 cm^2 ----- FS, LAX (L) 2 % 25 - 43 LEON, Vmax 1.04 cm^2 ----- PW, ED, LAX (H) 1.1 cm 0.6 - AR peak v 3.81 m/sec ----- 1.0 AR PHT 356 ms ----- FS (L) 2 % 25 - 43 AR peak grad 58 mm Hg ----- PW, ED (H) 1.1 cm 0.6 - 1.0 Mitral valve Value Ref E', lat jin, TDI (L) 6.4 cm/sec >=10.0 Peak E 1.16 m/sec - ---- E/e', lat jin, TDI 18 -------- Peak A 1.54 m/sec ---- - E', med jin, TDI (L) 4.7 cm/sec >=7.0 Decel time 113 ms - ---- E/e', med jin, TDI 25 -------- PHT 100 ms ---- - E', avg, TDI 5.6 cm/sec -------- Mean grad, D 4.0 mm Hg ---- - E/e', avg, TDI (H) 21 <=14 Peak grad, D 9.0 mm Hg - ---- Peak E/A ratio 0.8 ----- LVOT Value Ref MVA, PHT 2.2 cm^2 ----- Diam, S 2.00 cm -------- MR PISA radius 0.6 cm ----- Area 3.1 cm^2 -------- ERO, PISA 0.11 cm^2 ----- Peak yeni, S 1.03 m/sec -------- MR vol, PISA 33 ml ----- VTI, S 20.0 cm -------- Mean grad, S 2 mm Hg -------- Pulmonic valve Value Ref Peak v, S 1.31 m/sec ----- Ventricular septum Value Ref Peak grad, S 7.0 mm Hg ----- IVS, ED (H) 1.2 cm 0.6 - SC v, ED 1.93 m/sec ----- 1.0 SC grad, ED 15 mm Hg ----- Right ventricle Value Ref Tricuspid valve Value Ref NAVEED, LAX 2.8 cm -------- TR peak v (H) 3.33 m/sec <=2.8 NAVEED minor ax, A4C (H) 4.4 cm 1.9 - Peak RV-RA grad, S 44 mm Hg ----- mid 3.5 Pressure, S 52 mm Hg -------- Aortic root Value Ref Root diam 3.5 cm <3.9 Left atrium Value Ref LA ID 4.4 cm -------- Ascending aorta Value Ref ML dim, A4C 4.9 cm -------- AAo AP diam, S 3.5 cm ----- SI dim, A4C 6.3 cm -------- Vol/bsa, ES, 1-p (H) 57 ml/m^2 12 - 37 Pulmonary artery Value Ref A4C Pressure, S 45.0 mm Hg ----- Right atrium Value Ref Inferior vena cava Value Ref ML dim, ES, A4C (H) 4.6 cm 2.6 - Diam 2.1 cm ----- 4.4 SI dim, ES, A4C (H) 5.8 cm 3.4 - 5.3 SI dim/bsa, ES, A4C (H) 3.6 cm/m^2 1.8 - 3.0 Estimated RAP 8 mm Hg -------- Aortic valve Value Ref Jin diam, S (L) 1.9 cm 2.0 - 3.2 Peak v, S 3.1 m/sec -------- VTI, S 44.7 cm -------- Legend: (L) and (H) chay values outside specified reference range. Prepared and electronically signed by Bennett Pagan MD 03/27/2019 18:30
[2019-03-27] MEDS: Heparin VIAL(*) 5000 UNITS/ML VIAL (FIVE THOUSAND) IV SCH (18:47)
[2019-03-27 19:14] LABS: INR 1.25 (0.82-1.09)
--- NOTE | 2019-03-27 20:23 | CONS ---
CARDIOLOGY EVALUATION: DATE OF CONSULT: 03/27/19 REASON FOR EVALUATION: CHF. HISTORY OF PRESENT ILLNESS: Mr. Chapman is a very pleasant 68-year-old gentleman, who recently had a syncopal episode and was found to have complete heart block and had a pacemaker placed. He was also found to have some degree of aortic stenosis, which was difficult to quantitate and he was being considered for an outpatient [facility]. He went home yesterday. His daughter, Dai , accompanies him and said that he was doing fairly well last night. She had a fight with him about smoking cigarette, he got very emotional, he got some shortness of breath and then calmed down. He watched a movie, went to bed around 11. She got up this morning and she noticed that his feet were swollen, which they had been on discharge, but had not been prior to the admission for the syncope. She tried to elevate his legs and helped him rest, but he was more short of breath than usual. He usually uses 2 pillows at night for comfort , but he was using 3 pillows last night and this morning. She tried to walk him to the bathroom this morning and he became very short of breath, stopping every few feet. Because of progressive orthopnea, she brought him into the hospital. He was found to be in CHF and was treated with IV Lasix with improvement in his symptoms. He had a CTA, which revealed no evidence of pulmonary embolism. He had airspace disease in the right lower lung field, which may represent pneumonia and bilateral pleural effusions, possible congestion. It was felt that he had progressive pneumonia in the right lung base with increasing pleural effusion. He also had elevated BNP and a mildly elevated troponin. He improved with Lasix and brisk diuresis. He denies any chest pain. No syncope or near syncope. He was lying with 1 pillow in the bed and was fairly comfortable. Of note, he does report weight loss of about 20 pounds from 140 to 120 over the last several months and has refused workup for malignancy. He denies fevers, chills, sweats, hematemesis, hematochezia. He was supposed to be taking amlodipine and Toprol as an outpatient, but discontinued it sometime in the past and has not refilled his prescriptions. PAST MEDICAL HISTORY: He has a history of bladder cancer, hypertension, COPD, and aortic stenosis. 3 avblock recent pacer. alcoholism, tobacco use. He also has a history of ulcer in the past. PAST SURGICAL HISTORY: Includes hernia repair, pacemaker implantation, and trauma to his right belly as a child and surgery. MEDICATIONS: As an outpatient, he was supposed to be on: 1. Amlodipine 10 mg a day. 2. Thiamine 100 mg a day. 3. Omeprazole 20 mg a day. 4. Metoprolol 50 mg a day. 5. Magnesium 400 mg b.i.d. 6. Folic acid 1 mg. 7. Cephalexin 250 t.i.d. 8. Aspirin 325 a day. 9. Acetaminophen 650. According to his daughter, he was just taking the antibiotic, Prilosec, thiamine , and levothyroxine. These medicines were just restarted. As an inpatient, he is on: 1. Aspirin 325 a day. 2. Acetaminophen p.r.n. 3. DuoNeb. 4. Cephalexin 250 t.i.d. 5. Folic acid 1 mg a day. 6. 5000 units of heparin subcu q.8. 7. Levothyroxine 50 mcg a day. 8. Magnesium oxide 400 mg b.i.d. 9. Metoprolol 50 mg p.o. daily. 10. Nicotine patch 1 transderm daily 7 mg per 24 hours. 11. Protonix 40 mg a day. 12. Thiamine 100 mg a day. ALLERGIES: He denies any allergies. FAMILY HISTORY: There is no family history of premature coronary artery disease. SOCIAL HISTORY: He smokes 3 packs per day. The patient reports he drinks 8 beers a day. The daughter says he goes to the bar and may be drinking more. . girlfriend . PHYSICAL EXAM: He is a well-developed, cachectic-appearing gentleman, in no apparent distress. See ER chart for the vital signs. Blood pressure 152/95, heart rate 98, O2 sat 95% on 4 L nasal cannula. Atraumatic, normocephalic. JVD approximately 10 cm. Carotids 2+ without bruits. No cervical adenopathy. No thyromegaly. Cardiac Exam: S1, S2 with a distant 2/6 systolic ejection murmur heard at the left lower sternal border. Chest: Decreased breath sounds and increased resonance to percussion. Kyphosis. There were soft rales at the right base. Abdomen: Bowel sounds present. Nontender. Femoral pulses intact without bruits. Distal pulses intact. 2+ ankle edema, pedal edema and 1+ left lower extremity edema. Motor strength 5/5 bilaterally. Deep tendon reflexes 2/ 4. Alert and oriented x3. DIAGNOSTIC STUDIES/LAB DATA: EKG revealed what appeared to be AV sequential pacing. Labs include sodium 127, BUN 13, creatinine 0.5. Troponin of 1.07 at 11:23, repeat was 1.04. TSH elevated at 16.97. White count of 10, hemoglobin of 13.3 , hematocrit of 39. D-dimer was elevated at 1050. Lactic acid elevated at 2.1. BNP was elevated greater than 1300. IMPRESSION AND PLAN: My impression is that Mr. Chapman has what appear to be [id number] aortic stenosis as well as recent complete heart block and AV sequential pacing, now admitted with heart failure and possible pneumonia. It appears that his repeat echo showed no pericardial effusion, but he does appear to have reduced LV function and possible severe aortic stenosis. This raises the possibility of hemodynamic decompensation due to either ischemic heart disease or severe valvular disease and recent volume overload. I did discuss with the patient and Janet Borwn NP and the patient's daughter that his prognosis is guarded. In the past, he has refused a workup for malignancy and at this point he is not sure if he would want anything done aggressive for his heart. He also does not plan on stopping smoking or stopping drinking at this point in time. I did discuss with him that his prognosis is extremely guarded in the setting of severe aortic stenosis, heart failure and reduced LV function and that therapeutic options are limited. He might be a candidate for catheterization, revascularization, TAVR or surgical revascularization and aortic valve replacement; however, he is not willing to consider that at this point in time. For the time being, I would recommend the followin. Gentle diuresis as you are doing. 2. We would use low-dose beta-blockers as needed to control his blood pressure and treat his decompensated heart failure and potential ischemia. 3. We would avoid afterload reducing agents like lisinopril and amlodipine at this point in time. 4. Hopefully, his LV function will improve with control of his heart failure and his heart rate. 5. I strongly suggest discontinuation of alcohol use and tobacco use. 6. If he is agreeable, cardiac catheterization would be helpful in defining his coronary anatomy and aortic valve gradient with an eye towards revascularization and aortic valve replacement. 7. A workup for the etiology of his weight loss would also be considered. 8. We will try to maintain his potassium over 4. 9. One of his EKGs from presentation last week raised possibility of atrial flutter and complete heart block. If indeed he has recurrent paroxysmal atrial arrhythmias, anticoagulation could be considered to decrease his risk of cardioembolic events; however, at this point, he is noncompliant and would be at high risk for bleeding complications. 10. Further recommendations will depend on his clinical course. He wants to discuss his options with his family and let us know whether he wants to proceed with evaluation or to reinstate his DNR status that was present at last visit. We would also watch for alcohol withdrawal. [id number]/[facility] #: [id number] NAMITA
[2019-03-27 20:33] LABS: Activated Partial Thrombo Time >240.0 seconds (26.0-38.0)
[2019-03-27] MEDS: Magnesium Oxide TAB* 400 MG PO SCH (21:12)
[2019-03-27] MEDS: Cephalexin CAP* 250 MG PO SCH (21:12)
[2019-03-27 21:15] LABS: Troponin I 1.39 ng/mL (<0.04)
[2019-03-27] MEDS ORDERED: Heparin VIAL(*) 5000 UNITS/ML VIAL (FIVE THOUSAND) SUBCUT SCH (22:00)
[2019-03-28 01:09] LABS: Troponin I 1.59 ng/mL (<0.04)
[2019-03-28] MEDS: Heparin VIAL(*) 5000 UNITS/ML VIAL (FIVE THOUSAND) IV SCH (01:25)
[2019-03-28] MEDS: Levothyroxine TAB* 50 MCG TAB PO SCH (05:30)
[2019-03-28 07:03] LABS: ABS Monocytes 0.9 10^3/ul (0-0.8); ABS Neutrophils 5.5 10^3/ul (1.5-7.7); Eosinophil % 0.2 %; Hematocrit 40 % (42-52); Lymphocyte % 13.5 %; Mean Corpuscular HGB Conc 35 g/dL (31-36); Mean Corpuscular Hemoglobin 36 pg (27-31); Mean Corpuscular Volume 103 fL (80-94); Mean Platelet Volume 8.1 fL (7.4-10.4); Nucleated Red Blood Cells % 0.1; Platelet Count 144 10^3/uL (150-450); Red Blood Count 3.84 10^6 /uL (4.18-5.48); Red Cell Distribution Width 14 % (10-15); White Blood Count 7.5 10^3/uL (3.5-10.8)
[2019-03-28 07:33] LABS: Troponin I 1.09 ng/mL (<0.04)
[2019-03-28 07:53] LABS: CO2 Carbon Dioxide 30 mmol/L (22-32); Calcium 7.8 mg/dL (8.6-10.3); Chloride 88 mmol/L (101-111); Sodium 126 mmol/L (135-145)
[2019-03-28 07:59] LABS: BUN/Creatinine Ratio 25.9 (8-20); Blood Urea Nitrogen 15 mg/dL (6-24); EGFR African American 167.6 (>60); EGFR Non-African American 138.5 (>60); Glucose 124 mg/dL (70-100)
[2019-03-28 08:35] LABS: Anion Gap 8 mmol/L (2-11)
[2019-03-28] MEDS ORDERED: Metoprolol Succinate XL TAB* 25 MG PO SCH (09:00)
[2019-03-28] MEDS ORDERED: Aspirin EC TAB* 325 MG PO SCH (09:00)
[2019-03-28] MEDS ORDERED: Metoprolol Succinate XL TAB* 50 MG PO SCH (09:00)
--- NOTE | 2019-03-28 09:03 | PN ---
Subjective Date of Service: 03/28/19 - c/o sob, elevated troponin Interval History: Patient responded well to IV Lasix. per nurse he had an episode of wheezing that improved with coughing. No dizziness, palpitations, chest pain. Medications Active Medications: Acetaminophen (Tylenol Tab*) 650 mg PO Q4H PRN PRN Reason: PAIN Albuterol/Ipratropium (Duoneb (Albuterol 2.5 Mg/Ipratropium 0.5 Mg)) 1 neb INH [id number] AWAKE PRN PRN Reason: sob/wheexing Aspirin (Ecotrin Ec Tab*) 81 mg PO DAILY [facility] Cephalexin HCl (Keflex Cap*) 250 mg PO TID [facility] Last Admin: 03/27/19 21:12 Dose: 250 mg Folic Acid (Folvite Tab*) 1 mg PO 0900 [facility] Heparin Sodium (Porcine) (Heparin Vial(*)) 0 units IV .PER PROTOCOL [facility] Last Admin: 03/28/19 01:25 Dose: 3,250 units Heparin Sodium/Dextrose (Heparin Drip 25,000 Units(*)) 25,000 units in 500 mls @ 0 mls/hr IV PER RATE [facility]; Protocol Last Admin: 03/27/19 18:45 Dose: 13 mls/hr Levothyroxine Sodium (Synthroid Tab*) 50 mcg PO DAILY@0600 [facility] Last Admin: 03/28/19 05:30 Dose: 50 mcg Magnesium Oxide (Magox 400 Tab*) 400 mg PO BID [facility] Last Admin: 03/27/19 21:12 Dose: 400 mg Metoprolol Succinate (Toprol Xl Tab*) 12.5 mg PO DAILY [facility] Nicotine (Nicotine Patch 7 Mg/24 Hr*) 1 patch TRANSDERM DAILY [facility] Pantoprazole Sodium (Protonix Tab*) 40 mg PO 1000 [facility] Pharmacy Profile Note (Nicotine Patch Removal Note*) 1 note PATCH OFF 2100 [facility] Thiamine HCl (Vitamin B-1 Tab*) 100 mg PO DAILY [facility] Objective Vital Signs: Temp Pulse Resp BP Pulse Ox 97.8 F 72 20 142/86 100 03/28/19 07:22 03/28/19 07:22 03/28/19 07:22 03/28/19 07:22 03/28/19 07:22 Oxygen Devices in Use Now: Nasal Cannula Appearance: appears frail, A+O x3 Ears/Nose/Mouth/Throat: NL Teeth, Lips, Gums, Mucous Membranes Moist Neck: NL Appearance and Movements; NL JVP Respiratory: - - Diminished throughout with inspiratory wheezes noted Cardiovascular: - - Diminished S1, S2 RRR. + systolic aortic murmur. Device site is intact no pocket hematoma Extremities: No Edema Neurological: Alert and Oriented x 3 Lines/Tubes/Other Access: Clean, Dry and Intact Peripheral IV Laboratory Results: 03/28/19 06:53 03/28/19 06:47 INR (Anticoag Therapy) 1.25 (0.82-1.09) H 03/27/19 18:55 APTT 66.9 seconds (26.0-38.0) H 03/28/19 06:47 Total Bilirubin 0.50 mg/dL (0.2-1.0) 03/27/19 11:23 AST 28 U/L (13-39) 03/27/19 11:23 ALT 14 U/L (7-52) 03/27/19 11:23 Alkaline Phosphatase 67 U/L (34-104) 03/27/19 11:23 B-Natriuretic Peptide > 1300 pg/mL (<=100) H 03/27/19 11:23 Total Protein 6.9 g/dL (6.4-8.9) 03/27/19 11:23 Albumin 3.6 g/dL (3.2-5.2) 03/27/19 11:23 Globulin 3.3 g/dL (2-4) 03/27/19 11:23 Albumin/Globulin Ratio 1.1 (1-3) 03/27/19 11:23 TSH 16.97 mcIU/mL (0.34-5.60) H 03/27/19 11:23 03/27/19 03/27/19 03/27/19 11:23 14:38 17:31 Troponin I 1.07 H* 1.04 H* 1.39 H* 03/27/19 03/28/19 03/28/19 20:44 00:38 06:47 Troponin I 1.39 H* 1.59 H* 1.09 H* Laboratory Results - last 24 hr 03/27/19 03/27/19 03/27/19 11:23 11:23 11:23 WBC 10.1 RBC 3.72 L Hgb 13.3 L Hct 39 L MCV 105 H MCH 36 H MCHC 34 RDW 14 Plt Count 167 MPV 7.6 Neut % (Auto) 85.4 Lymph % (Auto) 5.9 [place] % (Auto) 8.4 Eos % (Auto) 0.1 Baso % (Auto) 0.2 Absolute Neuts (auto) 8.6 H Absolute Lymphs (auto) 0.6 L Absolute Monos (auto) 0.8 Absolute Eos (auto) 0.0 Absolute Basos (auto) 0.0 Absolute Nucleated RBC 0.0 Nucleated RBC % 0.0 INR (Anticoag Therapy) APTT D-Dimer, Quantitative Patient Temperature ABG pH ABG pH (Temp Correct) ABG pCO2 ABG pCO2 (Temp Corrct ABG pO2 ABG pO2 (Temp Correct ABG HCO3 ABG O2 Saturation ABG Base Excess Respiration Rate O2 Delivery Device Ventilator Type Vent Mode FiO2 Inspiratory Time PEEP Pressure Support Pressure Control EPAP IPAP BiPAP Sodium 127 L Potassium 4.5 Chloride 87 L Carbon Dioxide 35 H Anion Gap 5 BUN 13 Creatinine 0.50 L Est GFR ( Amer) 198.9 Est GFR (Non-Af Amer) 164.4 BUN/Creatinine Ratio 26.0 H Glucose 145 H Lactic Acid 2.1 H* Calcium 8.3 L Iron 60 TIBC 308 % Saturation 19 Unsat Iron Binding < 293 Transferrin 220 Ferritin 140.5 Total Bilirubin 0.50 AST 28 ALT 14 Alkaline Phosphatase 67 Troponin I 1.07 H* B-Natriuretic Peptide Total Protein 6.9 Albumin 3.6 Globulin 3.3 Albumin/Globulin Ratio 1.1 Vitamin B12 826 Folate 9.31 TSH 16.97 H 03/27/19 03/27/19 03/27/19 11:23 14:13 14:38 WBC RBC Hgb Hct MCV MCH MCHC RDW Plt Count MPV Neut % (Auto) Lymph % (Auto) [place] % (Auto) Eos % (Auto) Baso % (Auto) Absolute Neuts (auto) Absolute Lymphs (auto) Absolute Monos (auto) Absolute Eos (auto) Absolute Basos (auto) Absolute Nucleated RBC Nucleated RBC % INR (Anticoag Therapy) APTT D-Dimer, Quantitative Patient Temperature Not Reportable ABG pH 7.49 H ABG pH (Temp Correct) Not Reportable ABG pCO2 55 H ABG pCO2 (Temp Corrct Not Reportable ABG pO2 67 L ABG pO2 (Temp Correct Not Reportable ABG HCO3 37.1 H ABG O2 Saturation 95.3 ABG Base Excess 15.8 H Respiration Rate Not Reportable O2 Delivery Device nasal cannula 3lpm Ventilator Type Not Reportable Vent Mode Not Reportable FiO2 Not Reportable Inspiratory Time Not Reportable PEEP Not Reportable Pressure Support Not Reportable Pressure Control Not Reportable EPAP Not Reportable IPAP Not Reportable BiPAP Not Reportable Sodium Potassium Chloride Carbon Dioxide Anion Gap BUN Creatinine Est GFR ( Amer) Est GFR (Non-Af Amer) BUN/Creatinine Ratio Glucose Lactic Acid Calcium Iron TIBC % Saturation Unsat Iron Binding Transferrin Ferritin Total Bilirubin AST ALT Alkaline Phosphatase Troponin I 1.04 H* B-Natriuretic Peptide > 1300 H Total Protein Albumin Globulin Albumin/Globulin Ratio Vitamin B12 Folate TSH 03/27/19 03/27/19 03/27/19 14:38 17:31 17:31 WBC RBC Hgb Hct MCV MCH MCHC RDW Plt Count MPV Neut % (Auto) Lymph % (Auto) [place] % (Auto) Eos % (Auto) Baso % (Auto) Absolute Neuts (auto) Absolute Lymphs (auto) Absolute Monos (auto) Absolute Eos (auto) Absolute Basos (auto) Absolute Nucleated RBC Nucleated RBC % INR (Anticoag Therapy) APTT D-Dimer, Quantitative 1050 H Patient Temperature ABG pH ABG pH (Temp Correct) ABG pCO2 ABG pCO2 (Temp Corrct ABG pO2 ABG pO2 (Temp Correct ABG HCO3 ABG O2 Saturation ABG Base Excess Respiration Rate O2 Delivery Device Ventilator Type Vent Mode FiO2 Inspiratory Time PEEP Pressure Support Pressure Control EPAP IPAP BiPAP Sodium Potassium Chloride Carbon Dioxide Anion Gap BUN Creatinine Est GFR ( Amer) Est GFR (Non-Af Amer) BUN/Creatinine Ratio Glucose Lactic Acid 1.9 Calcium Iron TIBC % Saturation Unsat Iron Binding Transferrin Ferritin Total Bilirubin AST ALT Alkaline Phosphatase Troponin I 1.39 H* B-Natriuretic Peptide Total Protein Albumin Globulin Albumin/Globulin Ratio Vitamin B12 Folate TSH 03/27/19 03/27/19 03/27/19 18:55 20:35 20:44 WBC RBC Hgb Hct MCV MCH MCHC RDW Plt Count MPV Neut % (Auto) Lymph % (Auto) [place] % (Auto) Eos % (Auto) Baso % (Auto) Absolute Neuts (auto) Absolute Lymphs (auto) Absolute Monos (auto) Absolute Eos (auto) Absolute Basos (auto) Absolute Nucleated RBC Nucleated RBC % INR (Anticoag Therapy) 1.25 H APTT >240.0 H* 77.7 H D-Dimer, Quantitative Patient Temperature ABG pH ABG pH (Temp Correct) ABG pCO2 ABG pCO2 (Temp Corrct ABG pO2 ABG pO2 (Temp Correct ABG HCO3 ABG O2 Saturation ABG Base Excess Respiration Rate O2 Delivery Device Ventilator Type Vent Mode FiO2 Inspiratory Time PEEP Pressure Support Pressure Control EPAP IPAP BiPAP Sodium Potassium Chloride Carbon Dioxide Anion Gap BUN Creatinine Est GFR ( Amer) Est GFR (Non-Af Amer) BUN/Creatinine Ratio Glucose Lactic Acid Calcium Iron TIBC % Saturation Unsat Iron Binding Transferrin Ferritin Total Bilirubin AST ALT Alkaline Phosphatase Troponin I 1.39 H* B-Natriuretic Peptide Total Protein Albumin Globulin Albumin/Globulin Ratio Vitamin B12 Folate [facility] 03/28/19 03/28/19 03/28/19 00:38 00:38 06:47 WBC RBC Hgb Hct MCV MCH MCHC RDW Plt Count MPV Neut % (Auto) Lymph % (Auto) [place] % (Auto) Eos % (Auto) Baso % (Auto) Absolute Neuts (auto) Absolute Lymphs (auto) Absolute Monos (auto) Absolute Eos (auto) Absolute Basos (auto) Absolute Nucleated RBC Nucleated RBC % INR (Anticoag Therapy) APTT 40.3 H D-Dimer, Quantitative Patient Temperature ABG pH ABG pH (Temp Correct) ABG pCO2 ABG pCO2 (Temp Corrct ABG pO2 ABG pO2 (Temp Correct ABG HCO3 ABG O2 Saturation ABG Base Excess Respiration Rate O2 Delivery Device Ventilator Type Vent Mode FiO2 Inspiratory Time PEEP Pressure Support Pressure Control EPAP IPAP BiPAP Sodium 126 L Potassium TNP Chloride 88 L Carbon Dioxide 30 Anion Gap 8 BUN 15 Creatinine 0.58 L Est GFR ( Amer) 167.6 Est GFR (Non-Af Amer) 138.5 BUN/Creatinine Ratio 25.9 H Glucose 124 H Lactic Acid Calcium 7.8 L Iron TIBC % Saturation Unsat Iron Binding Transferrin Ferritin Total Bilirubin AST ALT Alkaline Phosphatase Troponin I 1.59 H* 1.09 H* B-Natriuretic Peptide Total Protein Albumin Globulin Albumin/Globulin Ratio Vitamin B12 Folate [facility] 03/28/19 03/28/19 06:47 06:53 WBC 7.5 RBC 3.84 L Hgb 14.0 Hct 40 L MCV 103 H MCH 36 H MCHC 35 RDW 14 Plt Count 144 L MPV 8.1 Neut % (Auto) 73.8 Lymph % (Auto) 13.5 [place] % (Auto) 12.3 Eos % (Auto) 0.2 Baso % (Auto) 0.2 Absolute Neuts (auto) 5.5 Absolute Lymphs (auto) 1.0 Absolute Monos (auto) 0.9 H Absolute Eos (auto) 0.0 Absolute Basos (auto) 0.0 Absolute Nucleated RBC 0.0 Nucleated RBC % 0.1 INR (Anticoag Therapy) APTT 66.9 H D-Dimer, Quantitative Patient Temperature ABG pH ABG pH (Temp Correct) ABG pCO2 ABG pCO2 (Temp Corrct ABG pO2 ABG pO2 (Temp Correct ABG HCO3 ABG O2 Saturation ABG Base Excess Respiration Rate O2 Delivery Device Ventilator Type Vent Mode FiO2 Inspiratory Time PEEP Pressure Support Pressure Control EPAP IPAP BiPAP Sodium Potassium Chloride Carbon Dioxide Anion Gap BUN Creatinine Est GFR ( Amer) Est GFR (Non-Af Amer) BUN/Creatinine Ratio Glucose Lactic Acid Calcium Iron TIBC % Saturation Unsat Iron Binding Transferrin Ferritin Total Bilirubin AST ALT Alkaline Phosphatase Troponin I B-Natriuretic Peptide Total Protein Albumin Globulin Albumin/Globulin Ratio Vitamin B12 Folate TSH Diagnostic Imaging: *[facility]* [place] [address] Fax #: [phone] Transthoracic Echocardiogram Patient: Anjum Chapman : 1950 Study Date: 03/27/2019 Age: 68 Gender: M HR: 99 bpm Height: 67 in /170.2 cm BSA: 1.63 m^2 Weight: 119.8 lb /54.4 kg BMI: 18.8 kg/m^2 *Hotel Receptionist: * Mihaela Soares RDCS *Referring Physician: * Janet Brown *Reading Physician: * Bennett Pagan MD Indications: SOB. History: Aortic stenosis. Mitral regurgitation. Cerebrovascular accident. Risk factors: Current tobacco use. Hypertension. Seizures. Hiatal hernia. Labs, prior tests, procedures, and surgery: Permanent pacemaker system implantation. Conclusions Summary: - Left ventricle: There is mild concentric hypertrophy. Systolic function is severely reduced. The estimated ejection fraction is 20-25%. Systolic function is worse from the study of 03/21/2019. Features are consistent with a pseudonormal left ventricular filling pattern, with concomitant abnormal relaxation and increased filling pressure (grade 2 diastolic dysfunction). - Regional wall motion abnormality: Akinesis of the apical anterior, apical inferior, and apical myocardium; severe hypokinesis of the basal anteroseptal myocardium. - Right ventricle: Systolic function is mildly to moderately This report is only to be considered final once signed by the Provider(s) as displayed in the "<Electronically Signed by >" field (s). Absence of a signature indicates the report is in a draft status and still needs to be finalized. In the event this document was created by someone other than the signing Provider, the individual initiating the document will be listed in the "Entered by:" or "Dictated by:" jeronimo. EKG Data: 03/28/2019; AAS/WAX ENGRAVER rate 84Underlying rhythm appears to be sinus. Assessment/Plan #1 Sudden onset c/o sob 03/27/2019; LVEF now severely reduced with progression of apical WMA. Troponin peaked at 1.59. Denies chest pain. Last night he had reversed code status. I had a long discussion with patient and family. It appears at this time he is considering palliative care. In the past he has not been compliant with medications. I discussed in detail risk for instent thrombosis if he did decide to proceed with [facility] which would lead to recurrent TX and or . I also reviewed with him that if AV was deemed severe on RHC he could be evaluated for TAVR/ BAV however, again he would need to be compliant with antiplatlet therapy. After this discussion he voiced interest in not doing procedures and pursuing palliative care. It has been requested that there be a meeting to address goals of care by family. I will notify primary team. For now reduce ASA to 81/day, Lopressor therapy. Avoid nitrate therapy due to AV stenosis. Troponin has peaked thus if device interrogation does not reveal AFL may stop IV heparin. #2 Moderate to severe ; LVEF now severely reduced. Present with c/o SOB and pulmonary edema improved with gentle IV diuresis. As mentioned before avoid after load reduction, volume contraction and nitrate therapy. Will address goals of care later this morning #3 SHF; LVEF 20-25% presented with decompensation. ? Ischemic in nature. Responded well to IV Lasix. Will start Lasix 20/day. No ACEI/ARB due to . Continue Lopressor therapy. Will have medtronic reduce upper rate limit to 90 BPM. Not clear that patient wants to proceed with ischemic evaluation. To be addressed later this morning. #4 h/o Third degree AVB s/p DC PPM; Wound site intact, no pocket hematoma. [employer]tr[employer] to come in to interrogate device r/o atrial arrythmia given 03/21/2019 ECG ? AFL. Upper rate limit to be reduced to 90 BPM. Last dose of Keflex is tomorrow morning. Attending: Bennett Pagan
--- NOTE | 2019-03-28 10:10 | PN ---
Subjective Date of Service: 03/28/19 Interval History: Was admitted yesterday - new onset CHF, history of aortic stenosis, recent PPM for third degree heart block. This morning- discussed with patient, family and with cardiology team- patient does not want to pursue cardiac cath, further testing, and procedures, family and patient would like discussion with palliative care team. currently reports shortness of breath and fatigue has improved since being in the hospital. No chest pain. Objective Active Medications: Acetaminophen (Tylenol Tab*) 650 mg PO Q4H PRN PRN Reason: PAIN Albuterol/Ipratropium (Duoneb (Albuterol 2.5 Mg/Ipratropium 0.5 Mg)) 1 neb INH [id number] AWAKE PRN PRN Reason: sob/wheexing Aspirin (Aspirin Ec Tab*) 81 mg PO DAILY [facility] Cephalexin HCl (Keflex Cap*) 250 mg PO TID [facility] Last Admin: 03/27/19 21:12 Dose: 250 mg Folic Acid (Folvite Tab*) 1 mg PO 0900 [facility] Heparin Sodium (Porcine) (Heparin Vial(*)) 0 units IV .PER PROTOCOL [facility] Last Admin: 03/28/19 01:25 Dose: 3,250 units Heparin Sodium/Dextrose (Heparin Drip 25,000 Units(*)) 25,000 units in 500 mls @ 0 mls/hr IV PER RATE [facility]; Protocol Last Admin: 03/27/19 18:45 Dose: 13 mls/hr Levothyroxine Sodium (Synthroid Tab*) 50 mcg PO DAILY@0600 [facility] Last Admin: 03/28/19 05:30 Dose: 50 mcg Magnesium Oxide (Magox 400 Tab*) 400 mg PO BID [facility] Last Admin: 03/27/19 21:12 Dose: 400 mg Metoprolol Succinate (Toprol Xl Tab*) 12.5 mg PO DAILY [facility] Nicotine (Nicotine Patch 7 Mg/24 Hr*) 1 patch TRANSDERM DAILY [facility] Pantoprazole Sodium (Protonix Tab*) 40 mg PO 1000 [facility] Pharmacy Profile Note (Nicotine Patch Removal Note*) 1 note PATCH OFF 2100 [facility] Thiamine HCl (Vitamin B-1 Tab*) 100 mg PO DAILY [facility] Vital Signs - 8 hr 03/28/19 03/28/19 03/28/19 03:39 03:48 05:00 Temperature 97.8 F Pulse Rate 79 Respiratory 16 18 16 Rate Blood Pressure 121/72 (mmHg) O2 Sat by Pulse 100 Oximetry 03/28/19 03/28/19 05:17 07:22 Temperature 97.3 F 97.8 F Pulse Rate 77 72 Respiratory 16 20 Rate Blood Pressure 130/84 142/86 (mmHg) O2 Sat by Pulse 98 100 Oximetry Oxygen Devices in Use Now: Nasal Cannula Appearance: Elderly male, lying in bed, not in distress Respiratory: - - mild crackles. mild tachypnea. Cardiovascular: RRR - systolic murmur RUSB., - - trace lower extremity edema Abdominal: NL Sounds; No Tenderness; No Distention, No Hepatosplenomegaly Neurological: Alert and Oriented x 3 Result Diagrams: 03/28/19 06:53 03/28/19 06:47 Assess/Plan/Problems-Billing Assessment: - Patient Problems (1) CHF (congestive heart failure) Current Visit: Yes Status: Acute Code(s): I50.9 - HEART FAILURE, UNSPECIFIED SNOMED Code(s): 25308304 Comment: EF of 20%, cardio input appreciated. at this point patient would require CATH, possible TAVR and stent placement- patient does not want agressive measures. continue aspirin, d/c heparin drip, f/ u cardiology re: plavix palliative care consulted. (2) Aortic stenosis Current Visit: Yes Status: Acute Code(s): I35.0 - NONRHEUMATIC AORTIC (VALVE ) STENOSIS SNOMED Code(s): 44460511 Comment: medical managment (3) NSTEMI (non-ST elevated myocardial infarction) Current Visit: Yes Status: Acute Code(s): I21.4 - NON-ST ELEVATION (NSTEMI) MYOCARDIAL INFARCTION SNOMED Code(s): 62255888 Comment: With wall motion abnormality and decreased EF, patient does not want CATH. continue aspirin, awaiting cardio recs re: plavix. (4) Hyponatremia Current Visit: Yes Status: Acute Code(s): E87.1 - HYPO-OSMOLALITY AND HYPONATREMIA SNOMED Code(s): 46823435 Comment: likely due to alcohol use, now a component of CHF as well. (5) ETOH abuse Current Visit: No Status: Acute Code(s): F10.10 - ALCOHOL ABUSE, UNCOMPLICATED SNOMED Code(s): 63540679 (6) Third degree AV block Current Visit: No Status: Acute Code(s): I44.2 - ATRIOVENTRICULAR BLOCK, COMPLETE SNOMED Code(s): 85580430 Comment: status post PPM Status and Disposition: case d/w Dr. Pacheco, she will see patient.
--- NOTE | 2019-03-28 10:16 | CONSULT ---
<Sil Rayo - Last Filed: 03/28/19 10:14> Cardiology Note Had meeting with patient, daughter Merlene, patient's sister and Dr. Toney. Patient is aware of risk for sudden cardiac given newly diagnosed sevvere LV dysfunction, with progression of focal wall motion abnormality and possible severe . At this time he wishes to be DNR and pursue palliative care. He does not want cardiac cath, evaluation for TAVR or any invasive/non invasive testing. Will update Dr. Pagan <Bennett Pagan - Last Filed: 03/28/19 15:25> Cardiology Note reviewed with Ms. Rayo. Patient examined and chart reviewed. Seems improved on current regimen. Affect improved. CHF seems to have improved. Prognosis guarded but patient seems comfortable with the care plan. discussed potential for decompensation with volume overload, sodium, overexertion, extremes of heat /humidity, alcohol use, tobacco use. Pt willing to continue meds and reduce alcohol intake but declines aggressive interventions (see palliative care note; consultation appreciated). Plan; cotinue medical rx with low dose beta esme reduce tobacco reduce alcohol asa/plavix reviewed risk of cardioembolic events given recent aflutter but dangers of anticoagulation acknowledged and patient declines. danger of using oxygen and smoking including fire /explosion reviewed. Pacer max rate reduced to 90 bpm to avoid exacerbating lv dysfunction /ischemia. avoid afterload reduction given probable severe . Prognosis guarded. more than 40 minutes spent face to face and coordinating care. Bennett Pagan MD
[2019-03-28] MEDS: Cephalexin CAP* 250 MG PO SCH ×3 (10:41→21:30)
[2019-03-28] MEDS: Aspirin EC TAB* 81 MG TAB.EC PO SCH (10:41)
[2019-03-28] MEDS: Folic Acid TAB* 1 MG PO SCH (10:41)
[2019-03-28] MEDS: Thiamine TAB* 100 MG TAB PO SCH (10:41)
[2019-03-28] MEDS: Magnesium Oxide TAB* 400 MG PO SCH ×2 (10:42→21:30)
[2019-03-28] MEDS: Nicotine PATCH 7 MG/24 HR* PATCH TRANSDERM SCH (10:42)
[2019-03-28] MEDS: Pantoprazole TAB * 40 MG TAB PO SCH (10:42)
[2019-03-28] MEDS: Albuterol/Ipratropium NEB.SOL* Albuterol 2.5 MG/Ipratropium 0.5 MG 3 ML INH PRN (11:53)
[2019-03-28] MEDS: Clopidogrel TAB* 75 MG PO SCH (12:23)
--- NOTE | 2019-03-28 13:52 | CONSULT ---
Palliative / Hospice Consult Ordering Provider: Lorena Meyers - PCP-Shruthi Delgadillo Reason: Goals of care discussion - Subjective Code Status: DNR [facility] Part A Completed: Yes - completed with family present [facility] Part E Completed:: Yes - completed with family present - History or Present Illness History or Present Illness: 68 yo male who presented to ER with SOB. PMH is significant for COPD, HTN, alcoholism, hypothyroid, seizure disorder secondary to alcohol withdrawal and third heart block s/p pacemaker insertion in March. Pt lives with daughter Dai who is her HCP [phone], he smoked 3 ppd but now on a patch, no drugs, still drinking alcohol, he has 6 children with 3 different moms, his girlfriend 3 months ago. Studies show Ekg-paced, CXR progressive RLL pneumonia and R plleural effusion, ECHO EF 20-25%, mod severe Aortic stenosis and L atrium is severely dilated, CTA no PE, CHF and RLL pnuemonia, H/H 14/40, Na 126, BUN/Cr 15 /.58, egfr 138.5, Ca 7.8, trponin 1.09, tprot 6.9, alb 3.6 and TSH 16.97. All history is from pt, family and medical records. Pt was recently hospitalized - for STEMI and had a pacer inserted for RBBB the day after discharged he developed SOB and was brought back to ER. Currently he is admitted with CHF exacerbation and questionable RLL pneumonia. Lab Values: Abnormal Lab Results 03/27/19 03/27/19 03/27/19 11:23 14:13 14:38 WBC RBC Hgb Hct MCV MCH MCHC RDW Plt Count MPV Neut % (Auto) Lymph % (Auto) [place] % (Auto) Eos % (Auto) Baso % (Auto) Absolute Neuts (auto) Absolute Lymphs (auto) Absolute Monos (auto) Absolute Eos (auto) Absolute Basos (auto) Absolute Nucleated RBC Nucleated RBC % INR (Anticoag Therapy) APTT D-Dimer, Quantitative Patient Temperature Not Reportable ABG pH 7.49 H ABG pH (Temp Correct) Not Reportable ABG pCO2 55 H ABG pCO2 (Temp Corrct Not Reportable ABG pO2 67 L ABG pO2 (Temp Correct Not Reportable ABG HCO3 37.1 H ABG O2 Saturation 95.3 ABG Base Excess 15.8 H Respiration Rate Not Reportable O2 Delivery Device nasal cannula 3lpm Ventilator Type Not Reportable Vent Mode Not Reportable FiO2 Not Reportable Inspiratory Time Not Reportable PEEP Not Reportable Pressure Support Not Reportable Pressure Control Not Reportable EPAP Not Reportable IPAP Not Reportable BiPAP Not Reportable Sodium 127 L Potassium 4.5 Chloride 87 L Carbon Dioxide 35 H Anion Gap 5 BUN 13 Creatinine 0.50 L Est GFR ( Amer) 198.9 Est GFR (Non-Af Amer) 164.4 BUN/Creatinine Ratio 26.0 H Glucose 145 H Lactic Acid Calcium 8.3 L Iron 60 TIBC 308 % Saturation 19 Unsat Iron Binding < 293 Transferrin 220 Ferritin 140.5 Total Bilirubin 0.50 AST 28 ALT 14 Alkaline Phosphatase 67 Troponin I 1.07 H* 1.04 H* Total Protein 6.9 Albumin 3.6 Globulin 3.3 Albumin/Globulin Ratio 1.1 Vitamin B12 826 Folate 9.31 TSH 16.97 H 03/27/19 03/27/19 03/27/19 14:38 17:31 17:31 WBC RBC Hgb Hct MCV MCH MCHC RDW Plt Count MPV Neut % (Auto) Lymph % (Auto) [place] % (Auto) Eos % (Auto) Baso % (Auto) Absolute Neuts (auto) Absolute Lymphs (auto) Absolute Monos (auto) Absolute Eos (auto) Absolute Basos (auto) Absolute Nucleated RBC Nucleated RBC % INR (Anticoag Therapy) APTT D-Dimer, Quantitative 1050 H Patient Temperature ABG pH ABG pH (Temp Correct) ABG pCO2 ABG pCO2 (Temp Corrct ABG pO2 ABG pO2 (Temp Correct ABG HCO3 ABG O2 Saturation ABG Base Excess Respiration Rate O2 Delivery Device Ventilator Type Vent Mode FiO2 Inspiratory Time PEEP Pressure Support Pressure Control EPAP IPAP BiPAP Sodium Potassium Chloride Carbon Dioxide Anion Gap BUN Creatinine Est GFR ( Amer) Est GFR (Non-Af Amer) BUN/Creatinine Ratio Glucose Lactic Acid 1.9 Calcium Iron TIBC % Saturation Unsat Iron Binding Transferrin Ferritin Total Bilirubin AST ALT Alkaline Phosphatase Troponin I 1.39 H* Total Protein Albumin Globulin Albumin/Globulin Ratio Vitamin B12 Folate TSH 03/27/19 03/27/19 03/27/19 18:55 20:35 20:44 WBC RBC Hgb Hct MCV MCH MCHC RDW Plt Count MPV Neut % (Auto) Lymph % (Auto) [place] % (Auto) Eos % (Auto) Baso % (Auto) Absolute Neuts (auto) Absolute Lymphs (auto) Absolute Monos (auto) Absolute Eos (auto) Absolute Basos (auto) Absolute Nucleated RBC Nucleated RBC % INR (Anticoag Therapy) 1.25 H APTT >240.0 H* 77.7 H D-Dimer, Quantitative Patient Temperature ABG pH ABG pH (Temp Correct) ABG pCO2 ABG pCO2 (Temp Corrct ABG pO2 ABG pO2 (Temp Correct ABG HCO3 ABG O2 Saturation ABG Base Excess Respiration Rate O2 Delivery Device Ventilator Type Vent Mode FiO2 Inspiratory Time PEEP Pressure Support Pressure Control EPAP IPAP BiPAP Sodium Potassium Chloride Carbon Dioxide Anion Gap BUN Creatinine Est GFR ( Amer) Est GFR (Non-Af Amer) BUN/Creatinine Ratio Glucose Lactic Acid Calcium Iron TIBC % Saturation Unsat Iron Binding Transferrin Ferritin Total Bilirubin AST ALT Alkaline Phosphatase Troponin I 1.39 H* Total Protein Albumin Globulin Albumin/Globulin Ratio Vitamin B12 Folate TSH 03/28/19 03/28/19 03/28/19 00:38 00:38 06:47 WBC RBC Hgb Hct MCV MCH MCHC RDW Plt Count MPV Neut % (Auto) Lymph % (Auto) [place] % (Auto) Eos % (Auto) Baso % (Auto) Absolute Neuts (auto) Absolute Lymphs (auto) Absolute Monos (auto) Absolute Eos (auto) Absolute Basos (auto) Absolute Nucleated RBC Nucleated RBC % INR (Anticoag Therapy) APTT 40.3 H D-Dimer, Quantitative Patient Temperature ABG pH ABG pH (Temp Correct) ABG pCO2 ABG pCO2 (Temp Corrct ABG pO2 ABG pO2 (Temp Correct ABG HCO3 ABG O2 Saturation ABG Base Excess Respiration Rate O2 Delivery Device Ventilator Type Vent Mode FiO2 Inspiratory Time PEEP Pressure Support Pressure Control EPAP IPAP BiPAP Sodium 126 L Potassium TNP Chloride 88 L Carbon Dioxide 30 Anion Gap 8 BUN 15 Creatinine 0.58 L Est GFR ( Amer) 167.6 Est GFR (Non-Af Amer) 138.5 BUN/Creatinine Ratio 25.9 H Glucose 124 H Lactic Acid Calcium 7.8 L Iron TIBC % Saturation Unsat Iron Binding Transferrin Ferritin Total Bilirubin AST ALT Alkaline Phosphatase Troponin I 1.59 H* 1.09 H* Total Protein Albumin Globulin Albumin/Globulin Ratio Vitamin B12 Folate TSH 03/28/19 03/28/19 03/28/19 06:47 06:53 10:18 WBC 7.5 RBC 3.84 L Hgb 14.0 Hct 40 L MCV 103 H MCH 36 H MCHC 35 RDW 14 Plt Count 144 L MPV 8.1 Neut % (Auto) 73.8 Lymph % (Auto) 13.5 [place] % (Auto) 12.3 Eos % (Auto) 0.2 Baso % (Auto) 0.2 Absolute Neuts (auto) 5.5 Absolute Lymphs (auto) 1.0 Absolute Monos (auto) 0.9 H Absolute Eos (auto) 0.0 Absolute Basos (auto) 0.0 Absolute Nucleated RBC 0.0 Nucleated RBC % 0.1 INR (Anticoag Therapy) APTT 66.9 H D-Dimer, Quantitative Patient Temperature ABG pH ABG pH (Temp Correct) ABG pCO2 ABG pCO2 (Temp Corrct ABG pO2 ABG pO2 (Temp Correct ABG HCO3 ABG O2 Saturation ABG Base Excess Respiration Rate O2 Delivery Device Ventilator Type Vent Mode FiO2 Inspiratory Time PEEP Pressure Support Pressure Control EPAP IPAP BiPAP Sodium Potassium 4.2 Chloride Carbon Dioxide Anion Gap BUN Creatinine Est GFR ( Amer) Est GFR (Non-Af Amer) BUN/Creatinine Ratio Glucose Lactic Acid Calcium Iron TIBC % Saturation Unsat Iron Binding Transferrin Ferritin Total Bilirubin AST ALT Alkaline Phosphatase Troponin I Total Protein Albumin Globulin Albumin/Globulin Ratio Vitamin B12 Folate TSH Laboratory Last Values WBC 7.5 10^3/uL (3.5-10.8) 03/28/19 06:53 RBC 3.84 10^6 /uL (4.18-5.48) L 03/28/19 06:53 Hgb 14.0 g/dL (14.0-18.0) 03/28/19 06:53 Hct 40 % (42-52) L 03/28/19 06:53 MCV 103 fL (80-94) H 03/28/19 06:53 MCH 36 pg (27-31) H 03/28/19 06:53 MCHC 35 g/dL (31-36) 03/28/19 06:53 RDW 14 % (10-15) 03/28/19 06:53 Plt Count 144 10^3/uL (150-450) L 03/28/19 06:53 MPV 8.1 fL (7.4-10.4) 03/28/19 06:53 Neut % (Auto) 73.8 % 03/28/19 06:53 Lymph % (Auto) 13.5 % 03/28/19 06:53 [place] % (Auto) 12.3 % 03/28/19 06:53 Eos % (Auto) 0.2 % 03/28/19 06:53 Baso % (Auto) 0.2 % 03/28/19 06:53 Absolute Neuts (auto) 5.5 10^3/ul (1.5-7.7) 03/28/19 06:53 Absolute Lymphs (auto) 1.0 10^3/ul (1.0-4.8) 03/28/19 06:53 Absolute Monos (auto) 0.9 10^3/ul (0-0.8) H 03/28/19 06:53 Absolute Eos (auto) 0.0 10^3/ul (0-0.6) 03/28/19 06:53 Absolute Basos (auto) 0.0 10^3/ul (0-0.2) 03/28/19 06:53 Absolute Nucleated RBC 0.0 10^3/ul 03/28/19 06:53 Nucleated RBC % 0.1 03/28/19 06:53 INR (Anticoag Therapy) 1.25 (0.82-1.09) H 03/27/19 18:55 APTT 66.9 seconds (26.0-38.0) H 03/28/19 06:47 D-Dimer, Quantitative 1050 ng/mL (Less Than 230) H 03/27/19 14:38 Patient Temperature Not Reportable 03/27/19 14:13 ABG pH 7.49 (7.35-7.45) H 03/27/19 14:13 ABG pH (Temp Correct) Not Reportable 03/27/19 14:13 ABG pCO2 55 mmHg (35-45) H 03/27/19 14:13 ABG pCO2 (Temp Corrct Not Reportable 03/27/19 14:13 ABG pO2 67 mmHg (80-100) L 03/27/19 14:13 ABG pO2 (Temp Correct Not Reportable 03/27/19 14:13 ABG HCO3 37.1 mmol/L (19-31) H 03/27/19 14:13 ABG O2 Saturation 95.3 % (94.0-98.0) 03/27/19 14:13 ABG Base Excess 15.8 mmol/L (-2.0-2.0) H 03/27/19 14:13 Respiration Rate Not Reportable 03/27/19 14:13 O2 Delivery Device nasal cannula 3lpm 03/27/19 14:13 Ventilator Type Not Reportable 03/27/19 14:13 Vent Mode Not Reportable 03/27/19 14:13 FiO2 Not Reportable 03/27/19 14:13 Inspiratory Time Not Reportable 03/27/19 14:13 PEEP Not Reportable 03/27/19 14:13 Pressure Support Not Reportable 03/27/19 14:13 Pressure Control Not Reportable 03/27/19 14:13 EPAP Not Reportable 03/27/19 14:13 IPAP Not Reportable 03/27/19 14:13 BiPAP Not Reportable 03/27/19 14:13 Sodium 126 mmol/L (135-145) L 03/28/19 06:47 Potassium 4.2 mmol/L (3.5-5.0) 03/28/19 10:18 Chloride 88 mmol/L (101-111) L 03/28/19 06:47 Carbon Dioxide 30 mmol/L (22-32) 03/28/19 06:47 Anion Gap 8 mmol/L (2-11) 03/28/19 06:47 BUN 15 mg/dL (6-24) 03/28/19 06:47 Creatinine 0.58 mg/dL (0.67-1.17) L 03/28/19 06:47 Est GFR ( Amer) 167.6 (>60) 03/28/19 06:47 Est GFR (Non-Af Amer) 138.5 (>60) 03/28/19 06:47 BUN/Creatinine Ratio 25.9 (8-20) H 03/28/19 06:47 Glucose 124 mg/dL (70-100) H 03/28/19 06:47 Lactic Acid 1.9 mmol/L (0.5-2.0) 03/27/19 17:31 Calcium 7.8 mg/dL (8.6-10.3) L 03/28/19 06:47 Iron 60 ug/dL (50-212) 03/27/19 11:23 TIBC 308 mcg/dL (250-450) 03/27/19 11:23 % Saturation 19 % (15-55) 03/27/19 11:23 Unsat Iron Binding < 293 ug/dL 03/27/19 11:23 Transferrin 220 mg/dL (203-362) 03/27/19 11:23 Ferritin 140.5 ng/mL (24-336) 03/27/19 11:23 Total Bilirubin 0.50 mg/dL (0.2-1.0) 03/27/19 11:23 AST 28 U/L (13-39) 03/27/19 11:23 ALT 14 U/L (7-52) 03/27/19 11:23 Alkaline Phosphatase 67 U/L (34-104) 03/27/19 11:23 Troponin I 1.09 ng/mL (<0.04) H* 03/28/19 06:47 B-Natriuretic Peptide > 1300 pg/mL (<=100) H 03/27/19 11:23 Total Protein 6.9 g/dL (6.4-8.9) 03/27/19 11:23 Albumin 3.6 g/dL (3.2-5.2) 03/27/19 11:23 Globulin 3.3 g/dL (2-4) 03/27/19 11:23 Albumin/Globulin Ratio 1.1 (1-3) 03/27/19 11:23 Vitamin B12 826 pg/mL (180-914) 03/27/19 11:23 Folate 9.31 ng/mL (>3.99) 03/27/19 11:23 TSH 16.97 mcIU/mL (0.34-5.60) H 03/27/19 11:23 - Objective Active Medications: Acetaminophen (Tylenol Tab*) 650 mg PO Q4H PRN PRN Reason: PAIN Albuterol/Ipratropium (Duoneb (Albuterol 2.5 Mg/Ipratropium 0.5 Mg)) 1 neb INH [id number] AWAKE PRN PRN Reason: sob/wheexing Last Admin: 03/28/19 11:53 Dose: 1 neb Aspirin (Aspirin Ec Tab*) 81 mg PO DAILY [facility] Last Admin: 03/28/19 10:41 Dose: 81 mg Cephalexin HCl (Keflex Cap*) 250 mg PO TID [facility] Stop: 03/29/19 09:00 Last Admin: 03/28/19 12:24 Dose: 250 mg Clopidogrel Bisulfate (Plavix Tab*) 75 mg PO DAILY [facility] Last Admin: 03/28/19 12:23 Dose: 75 mg Folic Acid (Folvite Tab*) 1 mg PO 0900 [facility] Last Admin: 03/28/19 10:41 Dose: 1 mg Levothyroxine Sodium (Synthroid Tab*) 50 mcg PO DAILY@0600 [facility] Last Admin: 03/28/19 05:30 Dose: 50 mcg Magnesium Oxide (Magox 400 Tab*) 400 mg PO BID [facility] Last Admin: 03/28/19 10:42 Dose: 400 mg Metoprolol Succinate (Toprol Xl Tab*) 12.5 mg PO DAILY [facility] Last Admin: 03/28/19 10:42 Dose: 12.5 mg Nicotine (Nicotine Patch 7 Mg/24 Hr*) 1 patch TRANSDERM DAILY [facility] Last Admin: 03/28/19 10:42 Dose: 1 patch Pantoprazole Sodium (Protonix Tab*) 40 mg PO 1000 [facility] Last Admin: 03/28/19 10:42 Dose: 40 mg Pharmacy Profile Note (Nicotine Patch Removal Note*) 1 note PATCH OFF 2100 [facility] Thiamine HCl (Vitamin B-1 Tab*) 100 mg PO DAILY [facility] Last Admin: 03/28/19 10:41 Dose: 100 mg Vital Signs: Vital Signs: Temp Pulse Resp BP Pulse Ox 97.9 F 91 15 117/68 96 03/28/19 11:00 03/28/19 11:58 03/28/19 11:58 03/28/19 11:00 03/28/19 11:58 Patient Weight: Weight 57.742 kg Intake and Output: Intake & Output 03/26/19 03/27/19 03/28/19 03/29/19 06:59 06:59 06:59 06:59 Intake Total 474.3 Output Total 1650 Balance -1175.7 Weight 57.742 kg Intake: IV Fluids 50 Heparin 184.3 Oral 240 Output: Urine 1650 ADLs: Meal Record Start: 03/27/19 19: 04 Freq: DAILY@0900,1400,1800 Status: Active Protocol: Created 03/27/19 19:04 System (Rec: 03/27/19 19:04 System [email or web address]) Intake and Output Start: 03/27/19 10: 47 Freq: Status: Active Protocol: Created 03/27/19 10:47 System (Rec: 03/27/19 10:47 System [id number]) Document 03/27/19 13:20 [id number] (Rec: 03/27/19 13:20 [id number]) Intake and Output Start: 03/27/19 19: 04 Freq: DAILY@0600,1400,2200 Status: Active Protocol: Created 03/27/19 19:04 System (Rec: 03/27/19 19:04 System [email or web address]) Document 03/27/19 22:00 [id number] (Rec: 03/27/19 22:01 [id number] [email or web address]-C10) Document 03/28/19 06:00 [id number] (Rec: 03/28/19 06:48 [id number] [id number]) Head: Normal Ears/Nose/Mouth/Throat: NL Teeth, Lips, Gums Neck: NL Appearance and Movements; NL JVP Cardiovascular: RRR - systolic murmur RUSB., - - trace lower extremity edema Respiratory: Symmetrical Chest Expansion and Respiratory Effort Abdominal: NL Sounds; No Tenderness; No Distention, No Hepatosplenomegaly Neurological: Alert and Oriented x 3 - Assessment Assessment: 68 yo male admitted with congestive heart failure EF 20-25% and moderate severe aortic stenosis eligible to hospice - Plan Consult Plan (MU): Hospice Plan: Long discussion with family at pt bedside. Pt's goal is to remain/ at home. He doesn't want medical/surgical intervention for his moderately severe aortic stenosis. He has been living with his daughter Dai. We discussed [facility] programs and hospice. Brochures and information given. They decided they would like to pursue hospice and if he doesn't qualify they are interested in outpatient palliative care with [facility]. We completed a [facility] form since he had switched to full code he now wants to be DNR/DNI, no feeding tube, no IV fluid, limited intervention and doesn't want to come back to the hospital. He is eligible for hospice with the diagnosis of systolic CHF with EF of 20-25%, moderate severe aortic stenosis declining TAVR, COPD and weight loss of 25# declining a work up. Did inform them that they can change their mind about [facility] choices and about hospice. Spoke with medical case manager and she will send a referral for hospice. Same day sign on is not mandatory and family is aware. KPS 50%, PPS 50% - Time On Unit Date of Evaluation: 03/28/19 Hospice Consult Time in: 12:00 Hospice Consult Time Out: 13:30 Hospice Consult Time Total: 90 > 50% of Time Spend In Counseling or Coordinating Care: Yes
[2019-03-28] MEDS: Nicotine Patch Removal NOTE PATCH OFF SCH (21:26)
[2019-03-28] MEDS: Metoprolol Succinate XL TAB* 25 MG PO SCH (21:30)
[2019-03-29] MEDS: Levothyroxine TAB* 50 MCG TAB PO SCH (06:02)
[2019-03-29 07:12] LABS: EGFR African American 203.6 (>60); EGFR Non-African American 168.3 (>60)
[2019-03-29] MEDS: Cephalexin CAP* 250 MG PO SCH (08:59)
[2019-03-29] MEDS: Magnesium Oxide TAB* 400 MG PO SCH ×2 (08:59→20:32)
[2019-03-29] MEDS: Folic Acid TAB* 1 MG PO SCH (09:00)
[2019-03-29] MEDS: Pantoprazole TAB * 40 MG TAB PO SCH (09:00)
[2019-03-29] MEDS: Clopidogrel TAB* 75 MG PO SCH (09:00)
[2019-03-29] MEDS: Thiamine TAB* 100 MG TAB PO SCH (09:00)
[2019-03-29] MEDS: Aspirin EC TAB* 81 MG TAB.EC PO SCH (09:00)
[2019-03-29] MEDS: Metoprolol Succinate XL TAB* 25 MG PO SCH ×2 (09:00→20:30)
[2019-03-29] MEDS: Nicotine PATCH 7 MG/24 HR* PATCH TRANSDERM SCH (09:01)
--- NOTE | 2019-03-29 10:59 | PN ---
Subjective Date of Service: 03/29/19 Interval History: No acute issues overnight, was wearing oxygen during daytime/nightime. Currently off oxygen. No chest pain, no shortness of breath. having cough with thick white sputum production Objective Active Medications: Acetaminophen (Tylenol Tab*) 650 mg PO Q4H PRN PRN Reason: PAIN Albuterol/Ipratropium (Duoneb (Albuterol 2.5 Mg/Ipratropium 0.5 Mg)) 1 neb INH [id number] AWAKE PRN PRN Reason: sob/wheexing Last Admin: 03/28/19 11:53 Dose: 1 neb Aspirin (Aspirin Ec Tab*) 81 mg PO DAILY [facility] Last Admin: 03/29/19 09:00 Dose: 81 mg Clopidogrel Bisulfate (Plavix Tab*) 75 mg PO DAILY [facility] Last Admin: 03/29/19 09:00 Dose: 75 mg Folic Acid (Folvite Tab*) 1 mg PO 0900 [facility] Last Admin: 03/29/19 09:00 Dose: 1 mg Guaifenesin (Mucinex*) 600 mg PO BID [facility] Levothyroxine Sodium (Synthroid Tab*) 50 mcg PO DAILY@0600 [facility] Last Admin: 03/29/19 06:02 Dose: 50 mcg Magnesium Oxide (Magox 400 Tab*) 400 mg PO BID [facility] Last Admin: 03/29/19 08:59 Dose: 400 mg Metoprolol Succinate (Toprol Xl Tab*) 12.5 mg PO BID [facility] Last Admin: 03/29/19 09:00 Dose: 12.5 mg Nicotine (Nicotine Patch 7 Mg/24 Hr*) 1 patch TRANSDERM DAILY [facility] Last Admin: 03/29/19 09:01 Dose: 1 patch Pantoprazole Sodium (Protonix Tab*) 40 mg PO 1000 [facility] Last Admin: 03/29/19 09:00 Dose: 40 mg Pharmacy Profile Note (Nicotine Patch Removal Note*) 1 note PATCH OFF 2100 [facility] Last Admin: 03/28/19 21:26 Dose: 1 note Thiamine HCl (Vitamin B-1 Tab*) 100 mg PO DAILY [facility] Last Admin: 03/29/19 09:00 Dose: 100 mg Vital Signs - 8 hr 03/29/19 03/29/19 03/29/19 04:00 04:01 07:47 Temperature 98.3 F 97.8 F Pulse Rate 72 73 Respiratory 18 18 18 Rate Blood Pressure 135/86 147/89 (mmHg) O2 Sat by Pulse 95 98 Oximetry Appearance: Thin male lying in bed, Not in distress Eyes: PERRLA Respiratory: - - Mild expiratory wheezing. Cardiovascular: RRR, - - systolic murmur at the RUSB. Extremities: No Edema Neurological: Alert and Oriented x 3 - Nutrition: Malnutrition Diagnosis/Plan Malnutrition Assessment by Registered Dietitian: Malnutrition Assessment Clinical Characteristics Chronic,Severe Malnutrition Assessment: - < 75% estimated energy expenditure > 1 month Criteria - Moderate temporal muscle wasting - 14% wt loss x 6 months (per family report) Malnutrition Assessment: Pt amenable to Ensure Enlive w/ meals. 350 kcals Interventions , 20 grams protein per serving. Malnutrition Assessment: Goals 1. Adequate PO intake to promote repletion of lean body mass, maintain appropriate hydration, and prevent additional wt loss Result Diagrams: 03/28/19 06:53 03/29/19 06:26 Assess/Plan/Problems-Billing Assessment: - Patient Problems (1) CHF (congestive heart failure) Current Visit: Yes Status: Acute Code(s): I50.9 - HEART FAILURE, UNSPECIFIED SNOMED Code(s): 70563541 Comment: EF of 20%, cardio input appreciated. at this point patient would require CATH, possible TAVR and stent placement- patient does not want agressive measures.continue asa, plavix. (2) Aortic stenosis Current Visit: Yes Status: Acute Code(s): I35.0 - NONRHEUMATIC AORTIC (VALVE ) STENOSIS SNOMED Code(s): 70705338 Comment: medical managment (3) NSTEMI (non-ST elevated myocardial infarction) Current Visit: Yes Status: Acute Code(s): I21.4 - NON-ST ELEVATION (NSTEMI) MYOCARDIAL INFARCTION SNOMED Code(s): 70691103 Comment: With wall motion abnormality and decreased EF, patient does not want CATH. continue aspirin, plavix (4) Hyponatremia Current Visit: Yes Status: Acute Code(s): E87.1 - HYPO-OSMOLALITY AND HYPONATREMIA SNOMED Code(s): 76513077 Comment: likely due to alcohol use, now a component of CHF as well. (5) ETOH abuse Current Visit: No Status: Acute Code(s): F10.10 - ALCOHOL ABUSE, UNCOMPLICATED SNOMED Code(s): 83960383 (6) Third degree AV block Current Visit: No Status: Acute Code(s): I44.2 - ATRIOVENTRICULAR BLOCK, COMPLETE SNOMED Code(s): 10651263 Comment: status post PPM Status and Disposition: Plan for hospice at home. Currently no in pain, no agitation/anxiety Discharge planning: check O2 sats for qualifying home O2, requested nebulizers. Case d/w daughter via phone, and showcase trimmer.
[2019-03-29] MEDS: guaiFENesin ER TAB 600 MG PO SCH ×2 (12:45→20:30)
[2019-03-29] MEDS ORDERED: Magnesium Sulfate 2 GM IV* 2 GM/50 ML BAG IVPB ONE (15:20)
[2019-03-29] MEDS: Nicotine Patch Removal NOTE PATCH OFF SCH (20:34)
[2019-03-29] MEDS: Albuterol/Ipratropium NEB.SOL* Albuterol 2.5 MG/Ipratropium 0.5 MG 3 ML INH PRN (21:52)
[2019-03-30] MEDS: Levothyroxine TAB* 50 MCG TAB PO SCH (05:14)
[2019-03-30] MEDS: guaiFENesin ER TAB 600 MG PO SCH ×2 (09:54→21:44)
[2019-03-30] MEDS: Magnesium Oxide TAB* 400 MG PO SCH ×2 (09:54→21:44)
[2019-03-30] MEDS: Nicotine PATCH 7 MG/24 HR* PATCH TRANSDERM SCH (09:54)
[2019-03-30] MEDS: Clopidogrel TAB* 75 MG PO SCH (09:54)
[2019-03-30] MEDS: Metoprolol Succinate XL TAB* 25 MG PO SCH ×2 (09:54→21:43)
[2019-03-30] MEDS: Aspirin EC TAB* 81 MG TAB.EC PO SCH (09:54)
[2019-03-30] MEDS: Folic Acid TAB* 1 MG PO SCH (09:54)
[2019-03-30] MEDS: Pantoprazole TAB * 40 MG TAB PO SCH (09:55)
[2019-03-30] MEDS: Thiamine TAB* 100 MG TAB PO SCH (09:55)
--- NOTE | 2019-03-30 12:00 | PN ---
Subjective Date of Service: 03/30/19 Interval History: No acute issues overnight Discussed with daughter and patient with CM at bedside- patient wanting to go home, discussed that we were unable to qualify him for oxygen, as the O2 does not drop upon ambulation. Disposition is for patient to go home w/ daughter, caregiver would be daughter. Awaiting hospice sign on. No chest pain, no shortness of breath, no palpitations yesterday did have beats of Vtach. Objective Active Medications: Acetaminophen (Tylenol Tab*) 650 mg PO Q4H PRN PRN Reason: PAIN Albuterol/Ipratropium (Duoneb (Albuterol 2.5 Mg/Ipratropium 0.5 Mg)) 1 neb INH [id number] AWAKE PRN PRN Reason: sob/wheexing Last Admin: 03/29/19 21:52 Dose: 1 neb Aspirin (Aspirin Ec Tab*) 81 mg PO DAILY [facility] Last Admin: 03/30/19 09:54 Dose: 81 mg Clopidogrel Bisulfate (Plavix Tab*) 75 mg PO DAILY [facility] Last Admin: 03/30/19 09:54 Dose: 75 mg Folic Acid (Folvite Tab*) 1 mg PO 0900 [facility] Last Admin: 03/30/19 09:54 Dose: 1 mg Guaifenesin (Mucinex*) 600 mg PO BID [facility] Last Admin: 03/30/19 09:54 Dose: 600 mg Levothyroxine Sodium (Synthroid Tab*) 50 mcg PO DAILY@0600 [facility] Last Admin: 03/30/19 05:14 Dose: 50 mcg Magnesium Oxide (Magox 400 Tab*) 400 mg PO BID [facility] Last Admin: 03/30/19 09:54 Dose: 400 mg Metoprolol Succinate (Toprol Xl Tab*) 12.5 mg PO BID [facility] Last Admin: 03/30/19 09:54 Dose: 12.5 mg Nicotine (Nicotine Patch 7 Mg/24 Hr*) 1 patch TRANSDERM DAILY [facility] Last Admin: 03/30/19 09:54 Dose: 1 patch Pantoprazole Sodium (Protonix Tab*) 40 mg PO 1000 [facility] Last Admin: 03/30/19 09:55 Dose: 40 mg Pharmacy Profile Note (Nicotine Patch Removal Note*) 1 note PATCH OFF 2100 [facility] Last Admin: 03/29/19 20:34 Dose: 1 note Thiamine HCl (Vitamin B-1 Tab*) 100 mg PO DAILY [facility] Last Admin: 03/30/19 09:55 Dose: 100 mg Vital Signs - 8 hr 03/30/19 03/30/19 08:00 08:03 Temperature 98.6 F Pulse Rate 79 Respiratory 18 18 Rate Blood Pressure 154/89 (mmHg) O2 Sat by Pulse 98 Oximetry Oxygen Devices in Use Now: Nasal Cannula Appearance: Sitting on bed, not in distress Respiratory: Clear to Auscultation Cardiovascular: RRR, - - 3/6 systolic murmur RUSB Abdominal: NL Sounds; No Tenderness; No Distention, No Hepatosplenomegaly Neurological: Alert and Oriented x 3 - Nutrition: Malnutrition Diagnosis/Plan Malnutrition Assessment by Registered Dietitian: Malnutrition Assessment Clinical Characteristics Chronic,Severe Malnutrition Assessment: - < 75% estimated energy expenditure > 1 month Criteria - Moderate temporal muscle wasting - 14% wt loss x 6 months (per family report) Malnutrition Assessment: Pt amenable to Ensure Enlive w/ meals. 350 kcals Interventions , 20 grams protein per serving. Malnutrition Assessment: Goals 1. Adequate PO intake to promote repletion of lean body mass, maintain appropriate hydration, and prevent additional wt loss Result Diagrams: 03/28/19 06:53 03/29/19 06:26 Assess/Plan/Problems-Billing Assessment: - Patient Problems (1) CHF (congestive heart failure) Current Visit: Yes Status: Acute Code(s): I50.9 - HEART FAILURE, UNSPECIFIED SNOMED Code(s): 72719322 Comment: EF of 20%, cardio input appreciated. at this point patient would require CATH, possible TAVR and stent placement- patient does not want agressive measures.continue asa, plavix. continue medical managment. (2) Aortic stenosis Current Visit: Yes Status: Acute Code(s): I35.0 - NONRHEUMATIC AORTIC (VALVE ) STENOSIS SNOMED Code(s): 98501713 Comment: medical managment (3) NSTEMI (non-ST elevated myocardial infarction) Current Visit: Yes Status: Acute Code(s): I21.4 - NON-ST ELEVATION (NSTEMI) MYOCARDIAL INFARCTION SNOMED Code(s): 84406298 Comment: With wall motion abnormality and decreased EF, patient does not want CATH. continue aspirin, plavix (4) Hyponatremia Current Visit: Yes Status: Acute Code(s): E87.1 - HYPO-OSMOLALITY AND HYPONATREMIA SNOMED Code(s): 46729014 Comment: likely due to alcohol use, now a component of CHF as well. (5) ETOH abuse Current Visit: No Status: Acute Code(s): F10.10 - ALCOHOL ABUSE, UNCOMPLICATED SNOMED Code(s): 72160197 (6) Third degree AV block Current Visit: No Status: Acute Code(s): I44.2 - ATRIOVENTRICULAR BLOCK, COMPLETE SNOMED Code(s): 62215272 Comment: status post PPM Status and Disposition: Plan for hospice at home. Currently no in pain, no agitation/anxiety Case d/w daughter, and window caser. Trying to arrange for nebulizer at home- awaiting to hear back from [facility] if this can be done today and walker for home.
[2019-03-30] MEDS: Nicotine Patch Removal NOTE PATCH OFF SCH (21:46)
[2019-03-31] MEDS: Levothyroxine TAB* 50 MCG TAB PO SCH (05:19)
[2019-03-31 06:47] LABS: BUN/Creatinine Ratio 29.5 (8-20); Calcium 8.2 mg/dL (8.6-10.3); EGFR African American 230.5 (>60); EGFR Non-African American 190.5 (>60); Magnesium 1.8 mg/dL (1.9-2.7); Potassium 4.2 mmol/L (3.5-5.0)
[2019-03-31 07:43] VITALS: BP 172/92
[2019-03-31] MEDS ORDERED: Magnesium Sulfate 2 GM IV* 2 GM/50 ML BAG IVPB ONE (08:03)
[2019-03-31] MEDS ORDERED: Losartan TAB* 25 MG PO SCH (09:00)
[2019-03-31] MEDS: Aspirin EC TAB* 81 MG TAB.EC PO SCH (09:18)
[2019-03-31] MEDS: Clopidogrel TAB* 75 MG PO SCH (09:19)
[2019-03-31] MEDS: Folic Acid TAB* 1 MG PO SCH (09:19)
[2019-03-31] MEDS: guaiFENesin ER TAB 600 MG PO SCH (09:19)
[2019-03-31] MEDS: Magnesium Oxide TAB* 400 MG PO SCH (09:19)
[2019-03-31] MEDS: Metoprolol Succinate XL TAB* 25 MG PO SCH (09:19)
[2019-03-31] MEDS: Thiamine TAB* 100 MG TAB PO SCH (09:20)
[2019-03-31] MEDS: Pantoprazole TAB * 40 MG TAB PO SCH (09:20)
[2019-03-31] MEDS: Nicotine PATCH 7 MG/24 HR* PATCH TRANSDERM SCH (09:20)
--- NOTE | 2019-03-31 20:27 | DS ---
CC: Dr. Simon Hawkins; Dr. Bennett Pagan, Psychiatric Clinical Nurse Specialist; Dr. Florence Pacheco * DISCHARGE SUMMARY: DATE OF ADMISSION: 03/27/19 DATE OF DISCHARGE: 03/31/19 PRIMARY CARE PROVIDER: Dr. Simon Hawkins. REASON FOR ADMISSION: Shortness of breath. CONSULTANTS DURING THE STAY: Included Dr. Bennett Pagan, Cardiology as well as Dr. Florence Pacheco, Palliative Care physician. HOSPITAL COURSE: This is a 68-year-old male with history of COPD, hypertension , alcoholism, hypothyroidism, seizure secondary to alcohol detox, and third- degree heart block, status post pacemaker, who has presented to the emergency room because of shortness of breath. He was recently discharged from the hospital on 03/26/19 after having an unresponsive episode and found to be bradycardic. The patient was found with third-degree heart block during that admission and a pacemaker was placed. The patient was subsequently discharged and reappeared in the emergency room the following day with complaint of shortness of breath. In the emergency room, the patient was seen and evaluated , the patient was placed on oxygen at 4 L saturating 97%, the patient was also suspected to have congestive heart failure as he also has history of aortic stenosis. The patient was given 40 mg of IV Lasix in the emergency room and subsequently called for admission. The patient was found to have an elevated TSH and his home dose levothyroxine was adjusted prior hospitalization. The patient was admitted to the hospital with telemetry, chest CTA was done which showed bilateral pleural effusion with interstitial edema suggestive of CHF. The patient also underwent an echocardiogram that showed an ejection fraction of 20 to 25%, systolic function is worse from the study that was done on 03/21/19. Also, the patient was found to have an aortic stenosis consistent with moderate to severe stenosis. Cardiology was consulted. The patient along with the family meeting had occurred as the patient did not want any aggressive measures. Please see our documentation in the progress note from Dr. Pagan as well as myself as well as Sil Rayo regarding patient wanting to be do not resuscitate and was not wanting any aggressive measures which include a cardiac catheterization as well as aortic valve replacement. The plan was to make the patient medical management with aspirin, Plavix and control of the blood pressure. Through the course, the patient did require magnesium supplementation for episode of ventricular tachycardia and we had started a medication losartan for control of his blood pressure. The patient also required guaifenesin for his cough. Regarding the hospital course, we had a long discussion with the housing case manager regarding hospice as the patient was interested in getting hospice treatment. We discussed with the hospice people and plan is for the primary care provider to provide some paper work and enroll himself into the hospice program. The hospice will be in either today or tomorrow for the intake form. DISCHARGE MEDICATIONS: Include: 1. Acetaminophen 650 mg every 4 hours as needed for pain. 2. Albuterol/ipratropium nebulizer every 4 hours as needed for shortness of breath and wheezing. 3. Aspirin 325 mg daily. 4. Plavix 75 mg daily. 5. Folic acid 1 mg daily. 6. Guaifenesin 5 mL daily. 7. Levothyroxine 50 mcg daily. 8. Losartan 25 mg daily. 9. Magnesium oxide 400 mg b.i.d. 10. Metoprolol succinate 50 mg daily. 11. Nicotine patch 7 mg daily. 12. Omeprazole 20 mg daily. 13. Thiamine 100 mg daily. PHYSICAL EXAMINATION: Blood pressure of 170/94, heart rate of 76, temperature of 97.4 Fahrenheit, oxygen saturation 97% on room air. General: This is an elderly male sitting on chair, in no acute distress. HEENT: Pupils equal, round, reactive to light, atraumatic and normocephalic. Heart: There is no chest wall tenderness, 3/6 systolic murmur best heard at the right upper sternal border. Extremities: There is no lower extremity edema. Neurologic: Alert and oriented x3 with no focal neurological deficits. Of note, the patient was also seen by Cardiology throughout the hospital course. This morning, the patient was seen by Cardiology again, rick from his pacemaker placement were removed as well. DISCHARGE PLANNING: The patient is to be discharged in a guarded condition, discharge home, plan for a hospice sign on soon. DIET: Regular diet with 1200 mL fluid restriction. Referral has been made for [facility], for hospice care, for [facility]. The patient to follow up with Dr. Bennett Pagan as well as Dr. Simon Hawkins. The patient reports to me that he already has an appointment with Dr. Pagan later this week as well as Dr. Montes next week. The patient is to use walker for walking and activity as tolerated. The patient to call primary care doctor for any questions. [id number]/[facility] #: [id number] NAMITA
== END 2019-03-31 12:31 | disposition home or self-care (01) | DRG 280 ==
LOC: ED 10:43 → MEDTELE 18:17
PROVIDERS: ADMIT Internal Medicine; ATTEND Internal Medicine
DX: I11.0 Hypertensive heart disease with heart failure (principal); I50.21 Acute systolic (congestive) heart failure; I21.4 Non-ST elevation (NSTEMI) myocardial infarction; I44.2 Atrioventricular block, complete; E87.1 Hypo-osmolality and hyponatremia; E87.2 Acidosis; I47.2 Ventricular tachycardia; J44.9 Chronic obstructive pulmonary disease, unspecified; E03.9 Hypothyroidism, unspecified; F41.9 Anxiety disorder, unspecified; D53.9 Nutritional anemia, unspecified; I35.0 Nonrheumatic aortic (valve) stenosis; F17.210 Nicotine dependence, cigarettes, uncomplicated; F10.20 Alcohol dependence, uncomplicated; I25.10 Atherosclerotic heart disease of native coronary artery without angina pectoris; E78.00 Pure hypercholesterolemia, unspecified; K21.9 Gastro-esophageal reflux disease without esophagitis; M19.90 Unspecified osteoarthritis, unspecified site; M41.9 Scoliosis, unspecified; F32.9 Major depressive disorder, single episode, unspecified; H26.9 Unspecified cataract; Z87.891 Personal history of nicotine dependence; Z79.82 Long term (current) use of aspirin; Z95.0 Presence of cardiac pacemaker; Z82.49 Family history of ischemic heart disease and other diseases of the circulatory system; Z83.3 Family history of diabetes mellitus; Z85.51 Personal history of malignant neoplasm of bladder; Z79.02 Long term (current) use of antithrombotics/antiplatelets
CPT/HCPCS: 36415; 71045; 71275; 80048; 80053; 82565; 82607; 82728; 82746; 82803; 83540; 83550; 83605; 83735; 83880; 84443; 84484; 84520; 85025; 85379; 85610; 85730; 93005; 93306; 94640; 99284; A9270-GY; J0692; J1644; J1940; J2930; J3475; Q9967